=== PATIENT | male | born 1975 | race African-American/Black ===

== ENCOUNTER 2018-04-27 23:48 | Inpatient (IN) | payer MEDICARE, OTHER ==
[~2018-04-27] VITALS: Ht 165.1 cm; Wt 68.5 kg
[~2018-04-27 23:48] MED LIST: AMOX-430 PO; APIX5TAB PO; LINE600T2 PO
--- NOTE | 2018-04-28 06:06 | NUR ---
ER MD GOETZ AT BEDSIDE FOR EVAL
[2018-04-28] MEDS ORDERED: HYDROCODONE/APAP 5/325MG 1 EACH TABLET ONE (06:24)
[2018-04-28] MEDS ORDERED: VANCOMYCIN 1 GM VIAL ONE (06:24)
[2018-04-28] MEDS ORDERED: PIPERACILLIN /TAZOBACTAM 3.375 G VIAL IV ONE (06:24)
[2018-04-28] MEDS ORDERED: HYDROCODONE/APAP 5/325MG 1 EACH TABLET PO ONE (06:30)
[2018-04-28] MEDS ORDERED: VANCOMYCIN 1 GM in IV D5W 250 ML IV ONE (06:30)
[2018-04-28] MEDS ORDERED: PIPERACILLIN /TAZOBACTAM 3.375 G in IV D5W 50 ML IV ONE (06:30)
--- NOTE | 2018-04-28 07:00 | NUR ---
BLOOD SENT TO LAB WITH MEDICAL PATHOLOGIST
[2018-04-28 07:18] LABS: BASOPHILS % (AUTO) 0.3 % (0.0-2.0); CALCIUM, SERUM 8.5 mg/dL (8.5-10.1); CREATININE 0.6 mg/dL (0.6-1.3); EOSINOPHILS % (AUTO) 4.8 % (0.0-6.0); HEMATOCRIT 32 % (39-51); HEMOGLOBIN 10.3 g/dL (13.5-17.5); LYMPHOCYTES # (AUTO) 1.4 /CMM (0.8-4.8); LYMPHOCYTES % (AUTO) 21.4 % (20.0-44.0); MEAN CORPUSCULAR HEMOGLOBIN 25 PG (26.0-33.0); MEAN CORPUSCULAR HGB CONC 32 g/dl (31.0-36.0); MEAN CORPUSCULAR VOLUME 78 fL (80-96); MONOCYTES # (AUTO) 0.6 /CMM (0.1-1.30); MONOCYTES % (AUTO) 9.5 % (2.0-12.0); NEUTROPHILS # (AUTO) 4.3 /CMM (1.8-8.9); PLATELET COUNT (AUTO) 612 /CMM (150-450); POTASSIUM 3.8 mmol/L (3.5-5.1); RDW COEFFICIENT OF VARIATION 18.4 (11.5-15.0); RED BLOOD CELL COUNT(AUTO) 4.13 MIL/uL (4.5-6.0); WHITE BLOOD COUNT (AUTO) 6.7 K/uL (4.3-11.0)
--- NOTE | 2018-04-28 07:19 | NUR ---
Paged Bijan DIRECTOR OF STRATEGIC ALLIANCES for admission
[2018-04-28 07:23] LABS: ALBUMIN 2.2 g/dL (3.4-5.0); BILIRUBIN,TOTAL 0.1 mg/dL (0.2-1.0); TOTAL PROTEIN, SERUM 8.2 g/dL (6.4-8.2)
[2018-04-28 08:00] VITALS: BP 118/82
[2018-04-28] MEDS ORDERED: Z GUARD REMEDY 2 OZ OINT TP PRN (08:00)
[2018-04-28] MEDS ORDERED: ACETAMINOPHEN 325 MG TABLET PO PRN (08:00)
[2018-04-28] MEDS ORDERED: HYDROCODONE/APAP 5/325MG 1 EACH TABLET PO PRN (08:00)
[2018-04-28] MEDS ORDERED: ZOLPIDEM TARTRATE 5 MG TABLET PO PRN (08:00)
[2018-04-28] MEDS ORDERED: MAGNESIUM HYDROXIDE 30 ML UDC PO PRN (08:00)
[2018-04-28] MEDS ORDERED: MAG HYDROX/AL HYDROX/SIMETH 30 ML UDC PO PRN (08:00)
--- NOTE | 2018-04-28 08:00 | NUR ---
LATHE SANDER RECEIVED PT. IN BED IN STABLE CONDITION. PT. IS HYPERVERBAL, AND DOES NOT WANT TO ANSWER QUESTIONS. VITAL SIGNS WNL. PT. IS VERY AGITATED THAT HE DID NOT HAVE BREAKFAST. PT. WAS EXPLAINED THAT THE KITCHEN IS BEING NOTIFIED AND AN ORDER IS BEING PLACE. PT. HAS VANCOMYCIN RUNNING ON LEFT UPPER ARM. PT. IS WHEELCHAIR BOUND AND DID NOT HAVE A WHEELCHAIR WITH HIM. ER WAS NOTIFIED, AND YOKE PRESSER IS AWARE.
[2018-04-28] MEDS: IV NS 0.9% 1,000 ML IV PRN (08:26)
--- NOTE | 2018-04-28 08:53 | NUR ---
WOUND CARE CONSULT: LIMITED ASSESSMENT DUE TO PT BECOMING AGITATED. PT PRESENTS WITH BILATERAL FOOT WOUNDS, PRESENT ON ADMISSION. LEFT FOOT HAS PROFOUND EDEMA. PT STATED THAT HE HAD A SACRAL WOUND BUT PT BECAME AGITATED DURING ASSESSMENT AND YELLED, CURSED AT NURSING STAFF TO GET OUT OF HIS ROOM. RECOMMEND DPM CONSULT. RECOMMEND LOW AIRLOSS BED (MARY ISOFLEX). ALL WOUND CARE AND SKIN PROTECTION RECOMMENDATIONS DISCUSSED WITH NURSING STAFF. WILL SEE PRN. MADDEN IN AGREEMENT WITH PLAN OF CARE. Addendum: 04/28/18 at 0855 by JINA DONNELLY WNDNU Amended: Links added.
[2018-04-28] MEDS ORDERED: APIXABAN 5 MG TABLET PO ONE (09:00)
[2018-04-28] MEDS ORDERED: APIXABAN 5 MG TABLET PO SCH (09:00)
--- NOTE | 2018-04-28 10:44 | NUR ---
PT. WAS MOVED TO ROOM 308 BED 2 TO ROOM 315 BED 1.
[2018-04-28 10:48] VITALS: BP 118/82
[2018-04-28] MEDS ORDERED: MORPHINE SULFATE INJ 2 MG/ML DISP.SYRIN IV PRN (11:30)
[2018-04-28] MEDS: MORPHINE SULFATE INJ 4 MG/ML DISP.SYRIN IV PRN ×3 (11:55→21:33)
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
--- NOTE | 2018-04-28 13:47 | NUR ---
RN PT. REFUSED TO HAVE SKIN ASSESSED, PICTURES TAKEN AND DRESSING CHANGED. PT. WAS OFFERED ASSISTANCE TO CHANGE DRESSING, BUT PT. STRONGLY REFUSED AND SAID, " DON'T TOUCH ME". PT. BECAME VERBALLY ABUSIVE.
[2018-04-28] MEDS ORDERED: FEE PK DOSING 1 MIN EA MC ONE (14:08)
--- NOTE | 2018-04-28 14:12 | NUR ---
WHILE ASSISTING PT. IN DRESSING CHANGE PT. BECAME VERBALLY ABUSIVE, SHOUTING AND YELLING AT NURSES OFFERING TO HELP ASSIST PT., AFTER EMPTYING OUT HIS URINAL PT. AGGRESSIVELY THREW URINAL AT THE WALL.
--- NOTE | 2018-04-28 15:01 | NUR ---
PT. IS WHEELCHAIR BOUND, PHYSICAL THERAPY IS NOT NEEDED AT THIS TIME.
[2018-04-28] MEDS: LORAZEPAM INJ 2 MG/ML VIAL IV PRN (15:57)
[2018-04-28 16:00] VITALS: BP 107/56
[2018-04-28] MEDS: PIPERACILLIN /TAZOBACTAM 3.375 G in IV D5W 50 ML IV SCH ×2 (16:04→23:04)
[2018-04-28] MEDS: VANCOMYCIN 1 GM in IV D5W 250 ML IV SCH (17:17)
[2018-04-28] MEDS: RIVAROXABAN 10 MG TABLET PO SCH (18:01)
--- NOTE | 2018-04-28 19:30 | NUR ---
RN CLOSING NOTES PT. IS IN BED A&OX4. BREATHING UNLABORED, AND EVENLY ON ROOM AIR. BED IS IN LOWEST, AND LOCKED POSITION. 2 SIDE RAILS UP, AND IV FLUIDS RUNNING AT 75ML/HR. CALL LIGHT IS WITHIN REACH. PT. IS EATING A SANDWICH AT BEDSIDE. WILL ENDORSE REPORT TO NURSE.
--- NOTE | 2018-04-28 19:35 | NUR ---
RN OPENING NOTES RECEIVED REPORT FROM DAYSHIFT CAROLIN HILARIO. FOUND Pt AWAKE, RESTING IN BED, EATING HIS SANDWICH. NO S/S OF ACUTE DISTRESS OR SOB NOTED. Pt IS A/OX3, VERBAL, ABLE TO MAKE NEEDS KNOWN. IV ACCESS ON BIPIN, IVF NS @75ML/HR. SAFETY MEASURES IN PLACE. BED LOW, LOCKED, HOB ELEVATED, SIDE RAILS UP, CALL LIGHT AND BEDSIDE TABLE WITHIN REACH. WILL CONTINUE TO MONITOR Pt THROUGHOUT THE NIGHT FOR SAFETY.
[2018-04-28 20:00] VITALS: BP 120/65
[2018-04-29] MEDS: VANCOMYCIN 1 GM in IV D5W 250 ML IV SCH ×4 (00:24→23:03)
[2018-04-29] MEDS: MORPHINE SULFATE INJ 4 MG/ML DISP.SYRIN IV PRN ×5 (01:46→22:10)
[2018-04-29] MEDS: LORAZEPAM INJ 2 MG/ML VIAL IV PRN (04:22)
--- NOTE | 2018-04-29 04:25 | NUR ---
RN NOTES Pt WAS GETTING AGITATED AND AGGRESSIVE TOWARDS STAFF MEMBERS, YELLING AND CURSING AND THROWING THINGS AROUND HIS ROOM. ADMINISTERED PRN ATIVAN 1MG PER MD ORDER.
--- NOTE | 2018-04-29 05:10 | NUR ---
RN NOTES Pt REFUSED LAB DRAW IN THE AM. LAB WILL TRY AGAIN LATER AFTER BFAST.
[2018-04-29] MEDS: PIPERACILLIN /TAZOBACTAM 3.375 G in IV D5W 50 ML IV SCH ×3 (05:35→18:40)
--- NOTE | 2018-04-29 06:31 | NUR ---
RN CLOSING NOTES NO SIGNIFICANT CHANGES IN Pt's CONDITION. Pt IS SLEEPING, WITH EVEN AND UNLABORED RESPIRATIONS. NO S/S OF ACUTE DISTRESS OR SOB NOTED DURING THE NIGHT. ALL NEEDS MET AND ATTENDED TO SAFETY MEASURES IN PLACE. WILL ENDORSE TO DAYSHIFT RN FOR Pt's BHARAT.
--- NOTE | 2018-04-29 07:34 | NUR ---
MS RN OPENING NOTES RECEIVED PT FROM NIGHTSARFT NURSE IN STABLE CONDITION. PT IS A/O X2. HE IS CURRENTLY CALM AND RESTING IN BED. PT IS EASILY AROUSABLE. COLOSTOMY NOTED TO BE INTACT. NO CONTENTS AT THIS TIME. ILEOSTOMY NOTED WELL WITH NO CONTENTS. IV TO RIGHT FA NOTED TO BE PATENT AND INTACT. NO REDNESS OR SIGNS OF INFILTRATION NOTED. PT TOLERATING NS INFUSION WELL. WOUND DRESSINGS NOTED TO BE CLEAN, DRY, AND INTACT. BED IN LOW LOCKED POSITION, SIDE RAILS UP X3, CALL LIGHT WITHIN REACH, BED ALARM ON. WILL CONTINUE TO MONITOR
[2018-04-29 08:00] VITALS: BP 104/65
[2018-04-29 08:14] VITALS: BP 104/65
[2018-04-29] MEDS: DAKINS QUARTER STRENGTH (0.125%) 480 ML BOTTLE TOP SCH (09:00)
--- NOTE | 2018-04-29 10:53 | NUR ---
VANCO ADMINISTRATION: 0800 VANCO HELD PT WAS REFUSING 0700 VANCO TROUGH LAB DRAW. PHARMACIST JOE MADE AWARE WHO STATES THAT VANCO MAY BE GIVEN AT THIS TIME AND THAT THE DOSAGE AND/OR TIMING MAY BE CHANGED
--- NOTE | 2018-04-29 10:57 | NUR ---
MS RN NOTES: WOUND CARE TX PT PERSISTENT ON TREATING AND CHANGING WOUND DRESSINGS ON HIS OWN AND REFUSING HELP. PER PT "MAN I DON'T WANT YOU IN HERE, I CAN DO THIS SHIT MYSELF".
--- NOTE | 2018-04-29 10:57 | NUR ---
PT REFUSING VANCO ADMINISTRATION
--- NOTE | 2018-04-29 12:16 | NUR ---
LANG received a call from pt's RN Shad that pt. is requesting to see the social service worker. LANG met with pt. bedside. Security, VINAYAK Brannon and CAROLIN Kulkarni were present as well outside pt's room. Pt. is verbally abusive to the staff and insists on wanting to sit in a wheelchair and possibly go out to smoke. LANG informed pt. that currently there is no staff available to take accompany him to go smoke. Pt. states he does not want to go AMA but wants to sit by the doorway in a wheelchair. VINAYAK Brannon is concerned that pt. if given wheelchair will wheel himself back and forth in the hallway in a wheelchair causing disruption on the floor. LANG provided active listening and emotional support to the patient and requested him to be patient about getting a wheelchair.
--- NOTE | 2018-04-29 12:25 | NUR ---
MS RN NOTES: 1200 ZOSYN ADMINISTRATION PT REFUSING 12OO ZOSYN ADMINISTRATION. RISKS AND BENEFITS EXPLAINED HOWEVER HE CONTINUED TO REFUSE
[2018-04-29] MEDS: IV NS 0.9% 1,000 ML IV PRN (14:36)
[2018-04-29 15:33] LABS: BASOPHILS % (AUTO) 0.3 % (0.0-2.0); EOSINOPHILS % (AUTO) 5.1 % (0.0-6.0); HEMATOCRIT 34 % (39-51); HEMOGLOBIN 10.1 g/dL (13.5-17.5); LYMPHOCYTES # (AUTO) 1.2 /CMM (0.8-4.8); LYMPHOCYTES % (AUTO) 19.2 % (20.0-44.0); MEAN CORPUSCULAR HEMOGLOBIN 24 PG (26.0-33.0); MEAN CORPUSCULAR HGB CONC 30 g/dl (31.0-36.0); MEAN CORPUSCULAR VOLUME 80 fL (80-96); MONOCYTES # (AUTO) 0.5 /CMM (0.1-1.30); MONOCYTES % (AUTO) 7.2 % (2.0-12.0); NEUTROPHILS # (AUTO) 4.4 /CMM (1.8-8.9); NEUTROPHILS % (AUTO) 68.2 % (43.0-81.0); PLATELET COUNT (AUTO) 678 /CMM (150-450); RDW COEFFICIENT OF VARIATION 18.3 (11.5-15.0); RED BLOOD CELL COUNT(AUTO) 4.22 MIL/uL (4.5-6.0); WHITE BLOOD COUNT (AUTO) 6.5 K/uL (4.3-11.0)
[2018-04-29 15:57] LABS: CALCIUM, SERUM 8.7 mg/dL (8.5-10.1); CREATININE 0.6 mg/dL (0.6-1.3); PHOSPHORUS 3.6 mg/dL (2.5-4.9); POTASSIUM 4.1 mmol/L (3.5-5.1)
[2018-04-29] MEDS: DIVALPROEX SODIUM 250 MG TABLET.DR PO SCH (17:33)
[2018-04-29] MEDS: RIVAROXABAN 10 MG TABLET PO SCH (17:33)
[2018-04-29] MEDS: LACTOBACILLUS RHAMNOSUS GG 1 EACH CAP.SPRINK PO SCH (17:34)
--- NOTE | 2018-04-29 19:22 | NUR ---
MS RN CLOSING NOTES PT REMAINS STABLE. MEDS GIVEN AND ORDERS CARRIED OUT ACCORDINGLY. WOUND DRESSINGS COMPLETED BY .PT REFUSING FURTHER DRESSING CHANGES THROUGHOUT SHIFT. IV REMAINS PATENT AND INTACT. SAFETY MEASURES REMAIN IN PLACE. WILL ENDORSE TO NIGHTSHIFT NURSE FOR BHARAT
--- NOTE | 2018-04-29 19:37 | NUR ---
MS COE OPENING NOTES: RECEIVED PT ON ROOM AIR AND IS TALKING ON TELEPHONE RIGHT NOW. PT HAS IV AND IS BEING INFUSED WITH IV NS AT 75ML/HR. PT HAS COLOSTOMY ON LEFT SIDE. CALL LIGHT WITHIN PT'S REACH. BED KEPT IN LOW, LOCKED POSITION, AND SIDE RAILS X 2UP. WILL CONTINUE TO MONITOR PT. Addendum: 04/29/18 at 2019 by ESTEFANIA KAUFMAN RN PT HAS DRESSING IN PLACE ON LEFT FOOT AND IS KEPT CLEAN AND DRY. PT ALSO HAS ILEAL CONDUIT ON RIGHT LOWER ABDOMEN.
--- NOTE | 2018-04-29 19:49 | NUR ---
MS RN NOTES: PT REFUSING TO HAVE HIS BLOOD PRESSURE TAKEN. PT VERBALLY ABUSIVE. PT DOES NOT WANT TO BE ASSISTED BY DOMINICK KOHLER. PT REMOVED HIMSELF FROM IV. PT REFUSING TO BE PLACED BACK ON CONTINUOUS IV.
[2018-04-29 20:00] VITALS: BP 121/80
--- NOTE | 2018-04-29 20:09 | NUR ---
MS RN NOTES: PT ASKED FOR SANDWICH. SANDWICH WAS BROUGHT AND PT SAID " I DON'T WANT NO EGG SANDWICH, BITCH." PT VERY VERBALLY ABUSIVE. PT DOES NOT WANT A MALE CHIEF LOCK TENDER OPERATOR. PT CALLED UP FRONT AND CALLED THE PERSON WHO PICKED UP THE PHONE A "BITCH." Addendum: 04/29/18 at 2009 by ESTEFANIA KAUFMAN RN PT VERY VERBALLY ABUSIVE FOR NO REASON.
[2018-04-29] MEDS: ONDANSETRON HCL/PF 4 MG/2 ML VIAL IVP PRN (20:44)
--- NOTE | 2018-04-29 20:44 | NUR ---
MS RN NOTES: PT SAID THAT HE HAS BEEN REQUESTING FOR ZOFRAN SINCE 0900 IN THE MORNING AND HAS BEEN FEELING NAUSEOUS. PT WAS ADMINISTERED ZOFRAN 4MG IV.
--- NOTE | 2018-04-29 21:12 | NUR ---
MS RN NOTES: LAMAR COOLEY ON PHONE. EXPLAINED TO HIM THAT PT HAS BEEN COMPLAINING OF PAIN AND THAT THE MORPHINE 1MG PAIN MEDICATION HE HAS BEEN GETTING HAS NOT BEEN WORKING. GOT ORDER FOR MORPHINE 4MG IV Q4HR.
--- NOTE | 2018-04-29 23:00 | NUR ---
MS RN NOTES: CHANGED DRESSING IN SACRAL AREA. EXPLAINED TO PT THAT PHOTO NEEDS TO BE TAKEN HOWEVER CAMERA WAS NOT IN HAND AT THE TIME OF DRESSING CHANGE. PT REQUESTED TO HAVE PHOTO TAKEN AT ANOTHER TIME WHEN THE CAMERA IS READILY AVAILABLE. WILL TRY AGAIN AT ANOTHER TIME.
--- NOTE | 2018-04-30 | NUR ---
MS RN NOTES: EXPLAINED TO PT THAT HE CANNOT GO DOWN FOR A SMOKE. PT AGITATED AND FRUSTRATED. PT APPEARED TO BE VERY ANXIOUS. PT WAS ADMINISTERED ATIVAN 1MG VIA IV. WILL CONTINUE TO MONITOR PT.
[2018-04-30] MEDS: PIPERACILLIN /TAZOBACTAM 3.375 G in IV D5W 50 ML IV SCH ×5 (00:09→23:02)
[2018-04-30] MEDS: MORPHINE SULFATE INJ 4 MG/ML DISP.SYRIN IV PRN ×5 (02:10→19:36)
[2018-04-30] MEDS: ONDANSETRON HCL/PF 4 MG/2 ML VIAL IVP PRN ×2 (02:44→15:58)
--- NOTE | 2018-04-30 02:44 | NUR ---
MS RN NOTES: PT VERBALIZING THAT HE IS NAUSEOUS AND REQUESTING FOR ZOFRAN. PT WAS ADMINISTERED ZOFRAN 4MG VIA IV. WILL CONTINUE TO MONITOR PT.
--- NOTE | 2018-04-30 06:04 | NUR ---
MS RN NOTES: PT VERBALIZING HIS BACK HAS BEEN HURTING AND THAT LAYING IN BED MAKES IT HURT EVEN MORE. PT REQUESTED TO BE SEATED ON CHAIR AND TO BE OUT OF ROOM SINCE HE IS CLAUSTROPHOBIC. CHARGE NURSE AWARE. HELPED ASSIST PT.
--- NOTE | 2018-04-30 06:10 | NUR ---
MS RN NOTES: PT COMPLAINING OF 8/10 LOWER BACK PAIN AND L FOOT/HEEL. PT WAS ADMINISTERED MORPHINE 4MG VIA IV. WILL CONTINUE TO MONITOR PT.
--- NOTE | 2018-04-30 06:31 | NUR ---
MS RN CLOSING NOTES: ALL NEEDS WERE ATTENDED AND ANTICIPATED FOR. PT SITTING IN THE HALLWAY FOR NOW HE VERBALIZED "IT IS STUFFY IN THE ROOM." PT REFUSING TO BE CONNECTED TO IV AT THIS TIME. PS HAS IV INTACT. BED KEPT CLEAN. WILL ASSIST PT BACK TO BED ONCE PT REQUESTS. PT REFUSING TO GO TO BED AT THIS TIME. EXPLAINED TO PT THAT TRUCK BRACER WILL HAVE TO DRAW BLOOD FROM HIM FOR HIS VANCO TROUGH SOON. WILL ENDORSE TO AM NURSE FOR BHARAT.
--- NOTE | 2018-04-30 07:15 | NUR ---
MS/RN OPENING NOTE PATIENT IS RECEIVED SITTING IN A CHAIR IN THE HALLWAY. THE PATIENT ALERT AND ORIENTED X4. UPON RECEIVING THE REPORT OVERHEAD THE PATIENT CURSING AND USING INAPPROPRIATE WORDS TOWARD NURSING STAFF WHO WERE NOT AROUND HIM. ONCE APPROACHED THE RESIDENT TO CHECK THE PATIENT AND CONTINUE RECEIVING REPORT WHILE BEING NEXT TO THE PATIENT, THE PATIENT STARTED TO BE VERBALLY ABUSIVE WITH NO APPARENT REASON. THE PATIENT SAYING " FUCKING NURSES, I AM YENIFER MCCRACKEN AND I DON`T WANT TO SEE ANY OF YOU. THE PATIENT WAS ENCOURAGED TO CALM DOWN AND VERBALIZE FEELINGS IN CALM MANNER, HOWEVER, THE PATIENT REFUSED TO FOLLOW THE INSTRUCTION AND CONTINUE TO BE VERBALLY ABUSIVE. PATIENT REFUSED TO BE CONNECTED TO THE TO THE IV FLUID. PATIENT HAS RFA G 22. PATIENT REFUSED TO SHOW ILEOSTOMY AND ILEAL CONDUIT THAT HE HAS ACCORDING TO REPORT. THE PATIENT REFUSED VITAL SIGNS. EXPLAINED RISKS AND BENEFITS BUT THE PATIENT STILL REFUSING. WILL CONTINUE TO MONITORING AND ENCOURAGE THE PATIENT.
--- NOTE | 2018-04-30 07:45 | NUR ---
MS/RN NOTE PATIENT REFUSED BLOOD DRAW FOR VANCO TROUGH DESPITE EXPLAINING RISKS AND BENEFITS.
[2018-04-30] MEDS: LORAZEPAM INJ 2 MG/ML VIAL IV PRN ×4 (08:29→22:07)
[2018-04-30] MEDS: DAKINS QUARTER STRENGTH (0.125%) 480 ML BOTTLE TOP SCH ×2 (08:35→09:00)
[2018-04-30] MEDS: LACTOBACILLUS RHAMNOSUS GG 1 EACH CAP.SPRINK PO SCH ×2 (09:00→17:18)
[2018-04-30] MEDS: DIVALPROEX SODIUM 250 MG TABLET.DR PO SCH ×3 (09:00→17:00)
--- NOTE | 2018-04-30 09:11 | NUR ---
MS/RN NOTE PATIENT REFUSED BLOOD DRAW FOR VANCO TROUGH DESPITE EXPLAINING RISKS AND BENEFITS. SOFTWARE SUPPORT TECHNICIAN EVATIAK IS MADE AWARE AND PER SOFTWARE SUPPORT TECHNICIAN HOLD VANCO UNTIL PATIENT AGREES FOR BLOOD DRAW AND THERE IS A RESULT FOR VANCO TROUGH.
--- NOTE | 2018-04-30 13:20 | NUR ---
MS/RN NOTE PATIENT REFUSES SKIN ASSESSMENT, WOUND PICTURES TO BE TAKEN AND TREATMENT TO BE DONE. THE PATIENT IS EXPLAINED RISKS AND BENEFITS, HOWEVER, THE PATIENT CONTINUE TO BE NON-COMPLIANT AND VERBALLY ABUSIVE TO NURSING STAFF.
--- NOTE | 2018-04-30 13:30 | NUR ---
MS/RN NOTE PATIENT REFUSED DEPAKOTE DUE AT 1300. EXPLAINED RISKS AND BENEFITS MULTIPLE TIMES BUT THE PATIENT STILL REFUSED.
[2018-04-30 14:50] LABS: CALCIUM, SERUM 8.5 mg/dL (8.5-10.1); CREATININE 0.6 mg/dL (0.6-1.3); POTASSIUM 4.7 mmol/L (3.5-5.1)
[2018-04-30 15:15] LABS: HEMOGLOBIN 10.6 g/dL (13.5-17.5); LYMPHOCYTES # (AUTO) 1.6 /CMM (0.8-4.8)
[2018-04-30 15:16] LABS: EOSINOPHILS % (AUTO) 5.4 % (0.0-6.0); HEMATOCRIT 34 % (39-51); LYMPHOCYTES % (AUTO) 23.2 % (20.0-44.0); MEAN CORPUSCULAR HEMOGLOBIN 25 PG (26.0-33.0); MEAN CORPUSCULAR HGB CONC 31 g/dl (31.0-36.0); MEAN CORPUSCULAR VOLUME 80 fL (80-96); MONOCYTES # (AUTO) 0.4 /CMM (0.1-1.30); MONOCYTES % (AUTO) 6.3 % (2.0-12.0); NEUTROPHILS # (AUTO) 4.4 /CMM (1.8-8.9); NEUTROPHILS % (AUTO) 65.1 % (43.0-81.0); RDW COEFFICIENT OF VARIATION 18.8 (11.5-15.0); RED BLOOD CELL COUNT(AUTO) 4.31 MIL/uL (4.5-6.0); WHITE BLOOD COUNT (AUTO) 6.8 K/uL (4.3-11.0)
[2018-04-30 15:35] LABS: PLATELET COUNT (AUTO) 424 /CMM (150-450)
[2018-04-30] MEDS: VANCOMYCIN 1 GM in IV D5W 250 ML IV SCH ×2 (15:58→23:02)
--- NOTE | 2018-04-30 16:30 | NUR ---
MS/RN NOTE PATIENT REFUSES BED LINENS TO BE CHANGED.
[2018-04-30] MEDS: RIVAROXABAN 10 MG TABLET PO SCH (17:19)
[2018-04-30] MEDS ORDERED: VANCOMYCIN HCL 125 MG/2.5 ML ORAL.SUSP PO ONE (17:30)
--- NOTE | 2018-04-30 17:47 | NUR ---
MS/RN NOTE RECEIVED NEW ORDER FROM LAMAR AMADOR. THE ORDERS ARE MIDLINE INSERTION, VACNO 500 MG PO X 1 AND HOLDING IV VANCO AND ZOSYN UNTIL MIDLINE IS INSERTED. THE ORDER ARE READ BACK, VERIFIED. NOTED AND CARRIED OUT.
--- NOTE | 2018-04-30 17:50 | NUR ---
MS/RN NOTE VANCO1 GM STARTED AT 1558 NOT ADMINISTERED DUE TO IV LINE MALFUNCTION.
--- NOTE | 2018-04-30 17:57 | NUR ---
MS/RN NOTE PER CURRICULUM ADVISORY TEACHER ISMAIL-ZAGLENDA ORDER OF VANCO 500MG PO IS DISCONTINUED. THE ORDER IS READ BACK, VERIFIED. NOTED AND CARRIED OUT.
--- NOTE | 2018-04-30 17:59 | NUR ---
MS/RN NOTE ZOSYN 3.375G DUE AT 1800 IS HELD DUE TO PATIENT`S IV LINE MALFUNCTIONING. WAITING FOR MIDLINE INSERTION.
--- NOTE | 2018-04-30 18:36 | NUR ---
MS/RN CLOSING NOTE PATIENT ALERT AND ORIENTED X3. PATIENT IN ROOM AIR AND DENIES SOB. RESPIRATION REGULAR AND UNLABORED. DENIES PAIN. PATIENT DOSE CHANGES AND DRAINS STOMAS AND ILEAL CONDUIT BY HIMSELF AND THE PATIENT DOES NOT ALLOW NURSES TO HELP. PATIENT CONTINUES TO BE NON-COMPLIANT AND VERBALLY ABUSIVE. PATIENT IS ENCOURAGED TO EXPRESS FEELINGS IN CALM AND POSITIVE MANNER, ENCOURAGED TO VENTILATE FEELINGS IN CALM MANNER. FREQUENT VISUAL CHECK DONE, ALL NEEDS ATTENDED AND ANTICIPATED. BED LOW AND LOCKED. SIDE RAILS UP X3. CALL LIGHT WITHIN REACH. WILL ENDORSE TO AUTOMATION AND CONTROLS MANAGER.
--- NOTE | 2018-04-30 19:00 | NUR ---
RN OPENING NOTES PT AWAKE AND RESTING IN BED. PATIENT STATES THAT HE IS YENIFER FIGUEROA. NO COMPLAINTS OF DISTRESS OR SOB AT THIS TIME. PATIENT HAS ILEOSTOMY, COLOSTOMY AND ILEAL CONDUIT. PER DAY SHIFT NURSE PATIENT CHANGES AND DRAINS STOMAS AND ILEAL CONDUIT. PATIENT HAS A PARTIALLY FUNCTIONING LEFT FA #18 IV. NO FLUIDS RUNNING AT THIS TIME, AND ALL IV ANTIBIOTICS WILL BE HELD UNTIL MIDLINE INSERTION. SAFETY PRECAUTIONS IN PLACE, BED IN LOWEST LOCKED POSITION, X3 SIDE RAILS UP, AND CALL LIGHT WITHIN REACH. WILL CONTINUE TO MONITOR.
[2018-04-30 20:00] VITALS: BP 115/63
[2018-05-01] MEDS: MORPHINE SULFATE INJ 4 MG/ML DISP.SYRIN IV PRN ×3 (00:55→09:17)
[2018-05-01] MEDS: LORAZEPAM INJ 2 MG/ML VIAL IV PRN ×2 (04:09→11:27)
[2018-05-01] MEDS: ONDANSETRON HCL/PF 4 MG/2 ML VIAL IVP PRN ×3 (04:10→19:49)
[2018-05-01] MEDS: PIPERACILLIN /TAZOBACTAM 3.375 G in IV D5W 50 ML IV SCH ×4 (05:28→23:00)
--- NOTE | 2018-05-01 06:30 | NUR ---
RN CLOSING NOTES PT AWAKE AND RESTING IN BED. PATIENT STATES THAT HE IS YENIFER FIGUEROA. PATIENT REQUESTS ATIVAN AND MORPHINE Q6H AND Q4H RESPECTIVELY. PT IS VERBALLY ABUSIVE TO STAFF. PATIENT HAS ILEOSTOMY, COLOSTOMY AND ILEAL CONDUIT. CHANGED PATIENTS ILEOSTOMY BAG DURING SHIFT. PATIENT HAS A PARTIALLY FUNCTIONING LEFT FA #18 IV. NO FLUIDS RUNNING OVERNIGHT, AND ALL IV ANTIBIOTICS HELD UNTIL MIDLINE INSERTION. SAFETY PRECAUTIONS IN PLACE, BED IN LOWEST LOCKED POSITION, X3 SIDE RAILS UP, AND CALL LIGHT WITHIN REACH. WILL ENDORSE TO DAY SHIFT NURSE FOR CONTINUITY OF CARE.
--- NOTE | 2018-05-01 06:39 | NUR ---
RN NOTES PT REFUSED LAB DRAW. WILL ENDORSE TO DAY SHIFT NURSE FOR LAB TO COME BACK LATER.
--- NOTE | 2018-05-01 07:00 | NUR ---
RN NOTES PT OUT OF BED AND GOT HIMSELF INTO CHAIR. NOW DEMANDS TO BE PULLED INTO THE HALLWAY.
[2018-05-01 07:40] LABS: HEMATOCRIT 33 % (39-51); HEMOGLOBIN 10.4 g/dL (13.5-17.5); MEAN CORPUSCULAR HEMOGLOBIN 25 PG (26.0-33.0); MEAN CORPUSCULAR HGB CONC 32 g/dl (31.0-36.0); MEAN CORPUSCULAR VOLUME 77 fL (80-96); RDW COEFFICIENT OF VARIATION 18.1 (11.5-15.0); RED BLOOD CELL COUNT(AUTO) 4.24 MIL/uL (4.5-6.0)
[2018-05-01 07:41] LABS: BASOPHILS % (AUTO) 0.7 % (0.0-2.0); EOSINOPHILS % (AUTO) 4.4 % (0.0-6.0); LYMPHOCYTES # (AUTO) 1.2 /CMM (0.8-4.8); LYMPHOCYTES % (AUTO) 19.6 % (20.0-44.0); MONOCYTES # (AUTO) 0.5 /CMM (0.1-1.30); MONOCYTES % (AUTO) 7.9 % (2.0-12.0); NEUTROPHILS # (AUTO) 4.2 /CMM (1.8-8.9); NEUTROPHILS % (AUTO) 67.4 % (43.0-81.0); PLATELET COUNT (AUTO) 513 /CMM (150-450)
[2018-05-01 07:43] LABS: CALCIUM, SERUM 8.9 mg/dL (8.5-10.1); CREATININE 0.5 mg/dL (0.6-1.3); POTASSIUM 4.6 mmol/L (3.5-5.1)
--- NOTE | 2018-05-01 08:00 | NUR ---
rn notes received patient sitting in the chair front of door. patient a/o x3 no acute respiratory distress. patient unkempt, verbally abusive, needy, hard to follow direction. Encouraged to express feelings and concerns. Patient refused v/s to be taken. patient paraplegic, also has a ileal conduce, colostomy on right side. edema right foot with wound, wound left ankle, and wound on sacral area. iv access on left ac area intact, patient refused ns iv infusion. patient selective with scheduled medication. needs attended and anticipated. call light within to reach, safety precaution maintained all the time.
[2018-05-01] MEDS: DIVALPROEX SODIUM 250 MG TABLET.DR PO SCH ×3 (08:20→16:49)
[2018-05-01] MEDS ORDERED: VANCOMYCIN HCL 125 MG/2.5 ML ORAL.SUSP PO ONE ×2 (08:30)
[2018-05-01] MEDS: LACTOBACILLUS RHAMNOSUS GG 1 EACH CAP.SPRINK PO SCH ×2 (09:16→16:41)
--- NOTE | 2018-05-01 09:20 | NUR ---
rn notes administered morphine sulf 4 mg/ 1 ml iv push par patient request foe generalized chronic pain 04/01, also administered Zofran 4 mg iv push for nausea, patient selective with medication intake, refused v/s to be taken. continued monitoring.
[2018-05-01] MEDS: DAKINS QUARTER STRENGTH (0.125%) 480 ML BOTTLE TOP SCH ×2 (09:52→09:53)
[2018-05-01] MEDS: VANCOMYCIN 1 GM in IV D5W 250 ML IV SCH (11:25)
--- NOTE | 2018-05-01 11:27 | NUR ---
rn notes administered Ativan 1 mg/ml iv push per patient request v/s taken bp-115/76, p-72, continued monitoring.
[2018-05-01] MEDS ORDERED: HYDROMORPHONE 1 MG/1 ML DISP.SYRIN IV PRN (13:30)
[2018-05-01] MEDS: HYDROMORPHONE 1 MG/1 ML DISP.SYRIN IV PRN ×4 (13:40→23:00)
--- NOTE | 2018-05-01 13:40 | NUR ---
rn notes administered Dilaudid 2 mg/ml iv push per patient request for pain 04/01 , v/s taken bp 133/75, p-63. per Dr Time put midline #18 gauge left upper arm, infusing ns at 75 ml/hr intact. continued monitoring.
--- NOTE | 2018-05-01 16:41 | NUR ---
rn notes administered Dilaudid 2 mg/ml iv push per patient request, v/s taken bp -130/72, p-60, continued monitoring. patient refused sacral wound dressing, left, and right wound dressing to be changed patient did himself. call light within to reach, safety precaution maintained all the time.
[2018-05-01] MEDS: RIVAROXABAN 10 MG TABLET PO SCH (16:43)
--- NOTE | 2018-05-01 18:30 | NUR ---
RN NOTES PATIENT STABLE BACK TO THE BED AFTER SMOKING. PATIENT NEEDY, KEEP ASKING PAIN MEDICATION, NEED REDIRECTION. NO ACUTE DISTRESS AT THIS TIME, NO RESPIRATORY DISTRESS. CALL LIGHT WITHIN TO REACH. ENDORSED ONCOMING NURSE FOR PLAN OF CARE.
--- NOTE | 2018-05-01 19:00 | NUR ---
RN INITIAL NOTES PT IS AWAKE AND ALERT, IN BED. PT IN ROOM AIR, NO SIGNS OF LABORED BREATHING. MIDLINE ACCESS IS PATENT AND INTACT. LEFT FOOT DRESSING INTACT. COLOSTOMY, ILEOSTOMY, AND ILEAL CONDUIT IN PLACED. COMPLAINTS OF PAIN OF 8, WILL BE GIVEN PAIN RELIEF. SAFETY MEASURES IN PLACED, CALL LIGHT WITHIN REACH. WILL CONTINUE TO MONITOR
[2018-05-01 20:00] VITALS: BP 120/77
[2018-05-02] MEDS: ONDANSETRON HCL/PF 4 MG/2 ML VIAL IVP PRN ×2 (01:59→20:45)
[2018-05-02] MEDS: HYDROMORPHONE 1 MG/1 ML DISP.SYRIN IV PRN ×8 (01:59→23:45)
[2018-05-02] MEDS: LORAZEPAM INJ 2 MG/ML VIAL IV PRN ×2 (03:00→23:02)
--- NOTE | 2018-05-02 03:00 | NUR ---
RN NOTES PT ALLOWED THE RN TO CHANGE DRESSING IN THE BACK/SACRAL AREA, CLEANSED WITH NS, PACKED DRY, COVERED WITH ABD PACK. CHANGED DRESSING IN THE LEFT HEEL, CLEANSED WITH NS, WRAPPED WITH KERLIX. PT THEN START TO BECOME VERBALLY AGGRESSIVE, SO ATIVAN WAS ADMINISTERED PER MD ORDER. WILL CONTINUE TO MONITOR
[2018-05-02] MEDS: PIPERACILLIN /TAZOBACTAM 3.375 G in IV D5W 50 ML IV SCH ×4 (05:00→23:45)
--- NOTE | 2018-05-02 06:27 | NUR ---
RN CLOSING NOTES PT AWAKE AND ALERT. PT IS IN ROOM AIR, NO SIGNS OF LABORED BREATHING. MIDLINE ON LEFT UPPER ARM 18G PATENT AND INTACT. COLOSTOMY, ILEAL CONDUIT, ILEOSTOMY BAGS CHANGED, INTACT. SACRAL WOUND CLEANSED WITH NS, PACKED DRY, AND COVERED WITH ABD PACK, PICTURE TAKEN ON THE CHART. LEFT HEEL CLEANSED WITH NS, COVERED WITH KERLIX. DENIES ANY PAIN AT THE MOMENT. SAFETY MEASURES IN PLACED, CALL LIGHT WITHIN REACH. ENDORSED CONTINUITY OF CARE TO THE ONCOMING NURSE.
[2018-05-02 07:42] LABS: BASOPHILS % (AUTO) 0.7 % (0.0-2.0); EOSINOPHILS % (AUTO) 4.1 % (0.0-6.0); HEMATOCRIT 36 % (39-51); HEMOGLOBIN 11.2 g/dL (13.5-17.5); MEAN CORPUSCULAR HEMOGLOBIN 25 PG (26.0-33.0); MEAN CORPUSCULAR HGB CONC 31 g/dl (31.0-36.0); MEAN CORPUSCULAR VOLUME 78 fL (80-96); MONOCYTES # (AUTO) 0.5 /CMM (0.1-1.30); MONOCYTES % (AUTO) 6.9 % (2.0-12.0); NEUTROPHILS # (AUTO) 4.8 /CMM (1.8-8.9); NEUTROPHILS % (AUTO) 73.3 % (43.0-81.0); PLATELET COUNT (AUTO) 570 /CMM (150-450); RDW COEFFICIENT OF VARIATION 18.5 (11.5-15.0); RED BLOOD CELL COUNT(AUTO) 4.56 MIL/uL (4.5-6.0); WHITE BLOOD COUNT (AUTO) 6.6 K/uL (4.3-11.0)
[2018-05-02] MEDS: DIVALPROEX SODIUM 250 MG TABLET.DR PO SCH ×3 (07:58→17:00)
[2018-05-02] MEDS: DAKINS QUARTER STRENGTH (0.125%) 480 ML BOTTLE TOP SCH (07:59)
[2018-05-02] MEDS: LACTOBACILLUS RHAMNOSUS GG 1 EACH CAP.SPRINK PO SCH ×2 (07:59→17:36)
[2018-05-02 08:00] VITALS: BP 107/76
[2018-05-02 08:00] LABS: CALCIUM, SERUM 9.1 mg/dL (8.5-10.1); CREATININE 0.7 mg/dL (0.6-1.3); POTASSIUM 4.4 mmol/L (3.5-5.1)
--- NOTE | 2018-05-02 08:02 | NUR ---
rn notes received patient in the room a/o x3, patient stable has no acute respiratory distress, v/s 106/76, p-76, patient was c/o pain chronic generalized 04/01, administered Dilaudid 2 mg /ml iv push, also administered scheduled medication. patient refused Depakote. patient state "I am not psycho i do not need Depakote". patient needy, verbally abusive, argumentative. left upper arm midline intact. patient turn and reposition self in the bed. colostomy and urostomy bag changed by patient. call light within to reach. continued monitoring.
--- NOTE | 2018-05-02 11:35 | NUR ---
RN NOTES ADMINISTERED DILAUDID 2 MG/ML IV PUSH FOR PAIN 04/01 PER PATIENT REQUEST. V/S TAKEN BP-110/78, P-88, CONTINUED MONITORING.
[2018-05-02] MEDS: VANCOMYCIN 1 GM in IV D5W 250 ML IV SCH ×3 (11:36)
--- NOTE | 2018-05-02 14:40 | NUR ---
rn notes administered Dilaudid 2 mg /ml iv push per patient request pain 04/01, v/s taken bp112/78, p-67, continued monitoring.
[2018-05-02 16:42] VITALS: BP 159/90
[2018-05-02] MEDS: RIVAROXABAN 10 MG TABLET PO SCH (17:37)
--- NOTE | 2018-05-02 17:46 | NUR ---
rn notes administered Dilaudid 2 mg/ml for pain 04/01 per patient request, v/s taken bp- 130/89, p-90, continued monitoring.
--- NOTE | 2018-05-02 18:45 | NUR ---
RN NOTES PATIENT IN THE BED, MEDICATION WERE ADMINISTERED FOR PAIN EFFECTIVE. PATIENT MED COMPLIANT, V/S STABLE. CALL LIGHT WITHIN TO REACH. ENDORSED ONCOMING NURSE FOR PLAN OF CARE.
--- NOTE | 2018-05-02 19:00 | NUR ---
RN OPENING NOTES PT AWAKE AND ALERT, SITTING IN CHAIR. PT IN ROOM AIR, TOLERATING WELL NO SIGNS OF LABORED BREATHING. COLOSTOMY, ILEOSTOMY, AND ILEAL CONDUIT ARE INTACT. MIDLINE LEFT UPPER ARM PATENT AND INTACT. PT COMPLAINS OF PAIN BUT TOLERABLE. SAFETY MEASURES IN PLACED, CALL LIGHT WITHIN REACH. WILL CONTINUE TO MONITOR
[2018-05-02 20:00] VITALS: BP 115/64
--- NOTE | 2018-05-02 23:02 | NUR ---
RN NOTES/ SACRAL/BACK DRESSING SACRAL/BACK WOUND CLEANSED WITH NS, PAT DRY, PACK WITH DRY DRESSING, COVERED WITH ABD DRESSING.
[2018-05-03] MEDS: VANCOMYCIN 1 GM in IV D5W 250 ML IV SCH (01:01)
--- NOTE | 2018-05-03 01:10 | NUR ---
RN NOTES ILEAL CONDUIT BAG CHANGED, INTACT
[2018-05-03] MEDS: HYDROMORPHONE 1 MG/1 ML DISP.SYRIN IV PRN ×8 (02:48→23:50)
[2018-05-03] MEDS: ONDANSETRON HCL/PF 4 MG/2 ML VIAL IVP PRN ×2 (02:48→08:45)
[2018-05-03] MEDS: PIPERACILLIN /TAZOBACTAM 3.375 G in IV D5W 50 ML IV SCH ×4 (05:47→23:49)
[2018-05-03 06:22] LABS: BASOPHILS % (AUTO) 0.4 % (0.0-2.0); EOSINOPHILS % (AUTO) 5.1 % (0.0-6.0); HEMATOCRIT 32 % (39-51); LYMPHOCYTES # (AUTO) 1.2 /CMM (0.8-4.8); LYMPHOCYTES % (AUTO) 19.1 % (20.0-44.0); MEAN CORPUSCULAR HEMOGLOBIN 25 PG (26.0-33.0); MEAN CORPUSCULAR HGB CONC 31 g/dl (31.0-36.0); MEAN CORPUSCULAR VOLUME 79 fL (80-96); MONOCYTES # (AUTO) 0.5 /CMM (0.1-1.30); MONOCYTES % (AUTO) 7.4 % (2.0-12.0); NEUTROPHILS # (AUTO) 4.2 /CMM (1.8-8.9); PLATELET COUNT (AUTO) 570 /CMM (150-450); RDW COEFFICIENT OF VARIATION 18.1 (11.5-15.0); RED BLOOD CELL COUNT(AUTO) 4.06 MIL/uL (4.5-6.0); WHITE BLOOD COUNT (AUTO) 6.1 K/uL (4.3-11.0)
--- NOTE | 2018-05-03 06:29 | NUR ---
RN CLOSING NOTES PT AWAKE AND ALERT, LAYING IN BED. PT IN ROOM AIR, TOLERATING WELL NO SIGNS OF LABORED BREATHING. COLOSTOMY, ILEOSTOMY, AND ILEAL CONDUIT ARE INTACT. ILEAL CONDUIT BAG CHANGED. MIDLINE LEFT UPPER ARM 18G PATENT AND INTACT. PT COMPLAINS OF PAIN, GIVEN PAIN MEDICATION AT 0546. SAFETY MEASURES IN PLACED, CALL LIGHT WITHIN REACH. WILL ENDORSE CONTINUITY OF CARE TO THE ONCOMING NURSE.
[2018-05-03 06:36] LABS: CALCIUM, SERUM 8.9 mg/dL (8.5-10.1); CREATININE 0.5 mg/dL (0.6-1.3); MAGNESIUM 1.7 mg/dL (1.8-2.4); PHOSPHORUS 3.8 mg/dL (2.5-4.9); POTASSIUM 4.1 mmol/L (3.5-5.1)
--- NOTE | 2018-05-03 07:30 | NUR ---
MS RN OPENING NOTE PT IS AWAKE AND ALERT, SITTING UP IN CHAIR. PT DENIES SOB, BREATHING IS EVEN AND UNLABORED ON ROOM AIR. PT C/O OF PAIN IN THE LEFT FOOT THAT IS TOLERABLE AT THIS TIME, REQUESTING PRN PAIN MEDICATION WHEN NEXT DUE. LEFT UPPER ARM MIDLINE IS PATENT AND INTACT, SAFETY MEASURES ARE IN PLACE, CALL LIGHT IS WITHIN REACH, WILL CONTINUE TO MONITOR.
[2018-05-03 08:00] VITALS: BP 101/69
[2018-05-03 08:20] VITALS: BP 104/69
[2018-05-03] MEDS: DIVALPROEX SODIUM 250 MG TABLET.DR PO SCH ×4 (08:31→17:00)
[2018-05-03] MEDS: LACTOBACILLUS RHAMNOSUS GG 1 EACH CAP.SPRINK PO SCH ×3 (08:31→17:00)
[2018-05-03] MEDS: DAKINS QUARTER STRENGTH (0.125%) 480 ML BOTTLE TOP SCH (08:36)
--- NOTE | 2018-05-03 09:00 | NUR ---
MS RN SACRAL WOUND DRESSING CHANGED SACRAL WOUND CLEANSED WITH NS, PAT DRY, PACKED WITH DRY GAUZE, COVERED WITH ABD DRESSING, AND TAPED INTO PLACE.
[2018-05-03] MEDS: Magnesium 1GM/D5W 100ML PREMIX 100 ML IV SCH ×2 (11:20→12:35)
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
[2018-05-03] MEDS: VANCOMYCIN 1.25 GM in IV D5W 500 ML IV SCH ×2 (13:00→15:16)
--- NOTE | 2018-05-03 13:30 | NUR ---
MS RN PT REFUSING VANCOMYCIN ADMINISTRATION PT DISCONNECTED SELF FROM IV PUMP AND IS REFUSING VANCOMYCIN ADMINISTRATION. DID NOT RECEIVE ENTIRE DOSE OF 2ND BAG OF MAGNESIUM ORDERED. RISKS AND BENEFITS EXPLAINED. PT STATED "I WON'T TAKE THEM UNTIL I GET TO SMOKE", WHEN ASKED IF THE PATIENT HAS CIGARETTES, PT STATED "NO" AND BEGAN TO CURSE. EXPLAINED TO PT HOSPITAL POLICY ON SMOKING, SPECIFICALLY THAT PT NEEDS TO PROVIDE OWN CIGARETTES, PT BEGAN TO CURSE ONCE AGAIN AND TOLD NURSE TO LEAVE THE ROOM.
--- NOTE | 2018-05-03 14:00 | NUR ---
MS RN PT REFUSING VANCOMYCIN PT STILL REFUSING VANCOMYCIN ADMINISTRATION, DEPAKOTE, AND TO FINISH SECOND MAGNESIUM BAG. RISKS AND BENEFITS EXPLAINED. PT STATED "THIS ROOM IS FILTHY, NO ONE DOES ANYTHING FOR ME". TAX DIRECTOR HAS CHANGED THE BED TWICE, RN HAS CHANGED DRAW SHEET AND CHUX ONCE, HOUSEKEEPING HAS SWEPT THE FLOORS AND EMPTIED THE TRASH CANS TWICE; PT THREW COLOSTOMY BAG, DRAW SHEETS, AND PAD ONTO GROUND AND RAISED VOICE AT NURSE. NURSE LEFT THE ROOM, WILL CONTINUE TO MONITOR.
--- NOTE | 2018-05-03 14:20 | NUR ---
MS RN HOUSEKEEPING AND MANAGER GROUP IN ROOM HOUSEKEEPING AND MANAGER GROUP IN ROOM. FLOORS SWEPT, FULL LINEN CHANGE, TRASH FROM BEDSIDE TABLE REMOVED AND WIPED DOWN, AND TRASH CANS EMPTIED.
--- NOTE | 2018-05-03 14:25 | NUR ---
MS RN BENADRYL PT REQUESTED BENADRYL, ORDERS OBTAINED FOR 50MG PO Q8H, WHEN OFFERED MEDICATION TO PT, PT STATED "EVERYTHING I GET IS SUPPOSE TO BE IV', EXPLAINED THAT DR ORDERED PO MEDICATION, PT REFUSED. PT HAS BEEN ABLE TO TOLERATE PO INTAKE WITHOUT INCIDENT TODAY, EVIDENCED BY >75% FOOD TRAY INTAKE. WILL CONTINUE TO MONITOR.
[2018-05-03] MEDS ORDERED: diphenhydrAMINE HCL 50 MG CAPSULE PO PRN (14:30)
--- NOTE | 2018-05-03 15:20 | NUR ---
MS RN LATE MEDICATION ADMINISTRATION VANCOMYCIN 1.25G ADMINISTERED LATE; PT REFUSED MEDICATION ADMINISTRATION AT SCHEDULED TIME. PT ALLOWED SECOND BAG OF MAGNESIUM TO BE CONTINUED WELL. SPOKE TO PHARMACY ABOUT ADJUSTING FUTURE ADMINISTRATION TIMES FOR VANCOMYCIN, STATED THAT SINCE TOMORROW ANOTHER TROUGH LEVEL WILL BE DRAWN, AN ADJUSTMENT IN ADMINISTRATION TIMES IS NOT NECESSARY AT THIS TIME. WILL CONTINUE TO MONITOR.
[2018-05-03 16:00] VITALS: BP 103/80
[2018-05-03] MEDS: RIVAROXABAN 10 MG TABLET PO SCH (17:00)
--- NOTE | 2018-05-03 18:00 | NUR ---
MS RN NON-ADMIN MEDICATIONS PT REFUSED PO DEPAKOTE, XARELTO, AND LACTOBACILLUS. RISKS AND BENEFITS EXPLAINED, PT STILL REFUSED. PT AGREEABLE TO RECEIVING IV ANTIBIOTIC. WILL CONTINUE TO MONITOR.
--- NOTE | 2018-05-03 18:17 | NUR ---
MS RN CLOSING NOTE PT IS SITTING UP IN BED, AA0X4. DENIES N/V, SOB AT THIS TIME, BREATHING IS EVEN AND UNLABORED ON ROOM AIR. PT RECEIVED PRN DILAUDID 2MG IVP AT 1743 FOR PAIN RATED 8/10 IN THE SACRUM. L UPPER ARM MIDLINE #18G IS CURRENTLY INFUSING NS @ 75ML/HR AND ZOSYN ORDERED WITHOUT SIGNS OF REDNESS, SWELLING OR PAIN AT THIS TIME. WOUND CARE PROVIDED TODAY TO SACRUM AND LEFT FOOT ORDERED, PLANS FOR WOUND DEBRIDEMENT TOMORROW (05/04) AT 2PM, PT VERBALIZED UNDERSTANDING OF CURRENT TREATMENT PLAN, CONSENT IS SIGNED AND LOCATED IN PT CHART. BED IS LOCKED AND IN LOWEST POSITION, SIDE RAILS UP X2, CALL LIGHT IS WITHIN REACH. WILL ENDORSE TO TUBE LASER OPERATOR RN FOR CONTINUITY OF CARE. Addendum: 05/03/18 at 1856 by LAI POP RN ORDERS NOTED FOR SACRAL WOUND CARE WITH HYDROGEL, AWAITING [facility] TO DELIVER HYDROGEL. WILL ENDORSE TO TUBE LASER OPERATOR.
--- NOTE | 2018-05-03 19:30 | NUR ---
MS RN OPENING NOTE Patient was seen sitting up in bed AAOx3, breathing comfortably on RA with no SOB, and no signs of acute distress. NS at 75 ml/hr is running through the left upper arm midline with no signs of leaking or infiltration. Left foot is covered with a dressing that is clean, dry, and intact. Patient is scheduled for left food debridement tomorrow (05/04). Colostomy is noted on the left side with stoma that is beefy red; ileostomy located on the right side with stoma that is beefy red. I assisted patient with changing his ileostomy bag, since he stated it was leaking. Bed is low/locked, two side rails up, and call jenkins within reach. Patient has no immediate needs or concerns at this time. Will continue to monitor.
[2018-05-03 20:00] VITALS: BP 135/82
[2018-05-03 20:03] VITALS: BP 135/82
--- NOTE | 2018-05-03 20:48 | NUR ---
MS RN NOTE - Dilaudid Patient reported 9/10 pain in left foot and back and requested Dilaudid. 2mg IV Dilaudid was administered per orders. Will continue to monitor.
--- NOTE | 2018-05-03 21:12 | NUR ---
MS RN NOTE - Med undo/non-admin Patient requested Benadryl prn for mild itching due to Dilaudid. After scanning and removing the Benadryl pill from the package, the patient changed his mind and refused the medication. Medicine was discarded in medication waste bin.
--- NOTE | 2018-05-03 23:50 | NUR ---
MS RN NOTE - Dilaudid Patient stated that pain was a "12/10" and requested Dilaudid. Patient states that prior dose of Dilaudid effectively reduced pain to 3/10. Patient tolerates medication well. 2mg IV Dilaudid administered per orders (prn q3h). Will continue to monitor.
[2018-05-04] MEDS: VANCOMYCIN 1.25 GM in IV D5W 500 ML IV SCH ×2 (01:09→13:00)
[2018-05-04] MEDS: IV NS 0.9% 1,000 ML IV PRN (02:45)
[2018-05-04] MEDS: HYDROMORPHONE 1 MG/1 ML DISP.SYRIN IV PRN ×7 (02:55→22:10)
--- NOTE | 2018-05-04 02:55 | NUR ---
MS RN NOTE - Dilaudid Patient requested Dilaudid for 9-10/10 pain in left foot and back (left foot osteomyelitis, chronic low back pain). 2mg IV Dilaudid administered per prn orders.
--- NOTE | 2018-05-04 04:16 | NUR ---
MS RN NOTE - Wound Care & behavior problems Wound care was provided to sacral/buttocks wound as ordered. Patient refused other wound care treatments and became verbally abusive to both myself and the AUTOMATION ENGINEER. Patient became very agitated because he did not have scrub pants, and he also believed that I was doing the wound care incorrectly, despite education.
--- NOTE | 2018-05-04 04:44 | NUR ---
MS RN NOTE - Behavior issue, refused IV fluids/medication Upon entering patient's room, I found the IV disconnected from patient's midline while still running. Patient admitted to disconnecting the IV himself. I explained to the patient that he needs to call me before disconnecting his IV and explained to him that now his IV Vanco is dripping onto the floor. I also educated the patient on the need for this antibiotic as well as ordered IV fluids. Despite education, the patient refused to be reconnected to IV fluids and Vancomycin. I estimate that about 50% of the 500ml bag was infused. Patient proceeded to raise his voice at me because of not having the right blankets and for "bothering him".
--- NOTE | 2018-05-04 05:27 | NUR ---
MS RN NOTE - Pt refuses wound tx and repositioning Patient refused wound care to bilateral heels. Patient has also refused turning and repositioning this shift.
[2018-05-04] MEDS: PIPERACILLIN /TAZOBACTAM 3.375 G in IV D5W 50 ML IV SCH ×4 (05:47→23:47)
--- NOTE | 2018-05-04 06:00 | NUR ---
MS RN NOTE - Dilaudid Patient requested Dilaudid for 9-10/10 pain in left foot, low back, and sacrum (left foot osteomyelitis, chronic low back pain, sacral wound). 2mg IV Dilaudid administered per prn orders.
[2018-05-04 06:34] LABS: BASOPHILS % (AUTO) 0.7 % (0.0-2.0); EOSINOPHILS % (AUTO) 5.4 % (0.0-6.0); HEMATOCRIT 32 % (39-51); LYMPHOCYTES # (AUTO) 1.4 /CMM (0.8-4.8); LYMPHOCYTES % (AUTO) 27.1 % (20.0-44.0); MEAN CORPUSCULAR HEMOGLOBIN 25 PG (26.0-33.0); MEAN CORPUSCULAR HGB CONC 32 g/dl (31.0-36.0); MEAN CORPUSCULAR VOLUME 78 fL (80-96); MONOCYTES # (AUTO) 0.4 /CMM (0.1-1.30); MONOCYTES % (AUTO) 8.4 % (2.0-12.0); NEUTROPHILS # (AUTO) 3.1 /CMM (1.8-8.9); NEUTROPHILS % (AUTO) 58.4 % (43.0-81.0); PLATELET COUNT (AUTO) 491 /CMM (150-450); RDW COEFFICIENT OF VARIATION 18.1 (11.5-15.0); RED BLOOD CELL COUNT(AUTO) 4.03 MIL/uL (4.5-6.0); WHITE BLOOD COUNT (AUTO) 5.3 K/uL (4.3-11.0)
[2018-05-04 06:44] LABS: CALCIUM, SERUM 8.7 mg/dL (8.5-10.1); CREATININE 0.6 mg/dL (0.6-1.3); MAGNESIUM 1.9 mg/dL (1.8-2.4); PHOSPHORUS 3.7 mg/dL (2.5-4.9); POTASSIUM 4.1 mmol/L (3.5-5.1)
--- NOTE | 2018-05-04 07:08 | NUR ---
MS RN CLOSING NOTE Patient is AAOx3, breathing comfortably on RA with no SOB, and no signs of acute distress. BIPIN midline is running NS at 75ml/hr. Colostomy is noted on left side and ileal conduit on the right; both stomas are beefy red in color. Left foot is wrapped with a dressing that is clean, dry, and intact; patient refused dressing change/wound care (see previous notes). Sacral wound is covered with a dressing - wound care provided. Patient did not sleep overnight, and his mood remains very labile. At times patient has been verbally abusive and uncooperative with myself and the CLOTH BEAMER. Patient is due for surgery today (05/04) for wound debridement; consents are signed. Bed is low/locked, two side rails up, and call jenkins within reach. Patient care endorsed to day shift nurse.
--- NOTE | 2018-05-04 07:41 | NUR ---
MS RN OPENING NOTES RECEIVED PT FROM NIGHTSFLFT NURSE IN STABLE CONDITION. PT IS A/O X3. NO SOB OR ACUTE SIGNS OF DISTRESS NOTED. HE IS CURRENTLY CALM AND SITING ON A CHAIR IN THE HALLWAY. COLOSTOMY NOTED TO BE INTACT. NO CONTENTS AT THIS TIME. ILEOSTOMY NOTED WELL WITH NO CONTENTS. NPO STATUS MAINTAINED PT IS SCHEDULED FOR OR DEBRIDEMENT TODAY AT 2PM. PT COMPLIANT WITH DIET ORDER AT THIS TIME. LEFT UPPER ARM MIDLINE NOTED TO BE PATENT AND INTACT. NO REDNESS OR SIGNS OF INFILTRATION NOTED. ADEQUATE BLOOD RETURN NOTED. LEFT HEEL WOUND DRESSINGS NOTED TO BE CLEAN, DRY, AND INTACT. PT REFUSING ASSESSMENT OF SACRAL WOUND AT THIS TIME. BED IN LOW LOCKED POSITION, SIDE RAILS UP X2, CALL LIGHT WITHIN REACH. WILL CONTINUE TO MONITOR
[2018-05-04] MEDS: DIVALPROEX SODIUM 250 MG TABLET.DR PO SCH ×3 (08:08→17:00)
[2018-05-04] MEDS: LACTOBACILLUS RHAMNOSUS GG 1 EACH CAP.SPRINK PO SCH ×2 (08:08→17:50)
[2018-05-04 08:15] VITALS: BP 108/65
[2018-05-04] MEDS: HYDROGEL DRESSING 90 GM TUBE TP SCH (09:00)
[2018-05-04] MEDS: DAKINS QUARTER STRENGTH (0.125%) 480 ML BOTTLE TOP SCH (09:00)
[2018-05-04] MEDS: diphenhydrAMINE HCL 50 MG/ML VIAL IV PRN ×3 (11:03→23:51)
[2018-05-04] MEDS: ONDANSETRON HCL/PF 4 MG/2 ML VIAL IVP PRN ×3 (11:07→23:51)
--- NOTE | 2018-05-04 13:41 | NUR ---
MS RN NOTES: OR TRANSFER PT WAS TAKEN TO OR IN STABLE CONDITION. FIELD ARTILLERY RADAR OPERATOR MADE AWARE THAT PT'S ZOSYN IS INFUSING AND HE HAS AN ORDER TO VANCO RIGHT AFTER. PER OR NURSE "WE WILL ADMINISTER HIS VANCO IN THE OR"
[2018-05-04] MEDS ORDERED: LIDOCAINE HCL/PF 1% 30 ML SDV ONE (13:50)
[2018-05-04] MEDS ORDERED: BUPIVACAINE MPF 0.5% W/EPI INJ 30 ML VIAL ONE (13:50)
[2018-05-04] MEDS ORDERED: FENTANYL PF 100MCG/2ML AMPUL ONE (13:53)
[2018-05-04] MEDS ORDERED: MIDAZOLAM HCL 2 MG/2ML VIAL ONE (13:53)
[2018-05-04 16:00] VITALS: BP 116/78
[2018-05-04] MEDS: RIVAROXABAN 10 MG TABLET PO SCH (18:00)
--- NOTE | 2018-05-04 19:00 | NUR ---
RN OPENING NOTES PT AWAKE AND ALERT, SITTING IN BED. PT IN ROOM AIR, TOLERATING WELL. COLOSTOMY BAG INTACT, ILEAL CONDUIT BAG CHANGED AND INTACT. LEFT FOOT DRESSING IS INTACT, DRY, NO SIGNS OF BLEEDING. LEFT UPPER MIDLINE 18G PATENT AND INTACT. DENIES ANY PAIN AT THIS MOMENT. SAFETY MEASURES IN PLACED, CALL LIGHT WITHIN REACH. WILL CONTINUE TO MONITOR
[2018-05-04 20:00] VITALS: BP 100/67
--- NOTE | 2018-05-04 21:29 | NUR ---
RN NOTES/ COCCYX DRESSING CHANGE DRESSING CHANGED, PT WANTS THE COCCYX AREA TO BE CLEANSED WITH NS, PAT DRY, PACKED DRY, COVERED WITH ABD DRESSING.
[2018-05-05] MEDS: VANCOMYCIN 1.25 GM in IV D5W 500 ML IV SCH (00:57)
--- NOTE | 2018-05-05 01:00 | NUR ---
PATIENT DISCONNECTED THE IV INFUSION HIMSELF. REFUSES TO BE CONNECTED FOR HIS SCHEDULED DOSE OF VANCO AT THIS TIME. TOLD ME TO COME BACK LATER AFTER HE GETS HIS DILAUDID. Addendum: 05/05/18 at 1515 by SARAHY DANIELLE RN FILED AT THE WRONG TIME.
[2018-05-05] MEDS: HYDROMORPHONE 1 MG/1 ML DISP.SYRIN IV PRN ×5 (01:10→13:28)
--- NOTE | 2018-05-05 04:45 | NUR ---
RN NOTES/COCCYX DRESSING CHANGE COCCYX DRESSING CHANGED. PT PREFERRED TO CLEANSED WITH NS, PAT DRY, PACKED DRY, COVERED WITH ABD DRESSING
[2018-05-05] MEDS: diphenhydrAMINE HCL 50 MG/ML VIAL IV PRN ×2 (05:51→12:20)
[2018-05-05] MEDS: ONDANSETRON HCL/PF 4 MG/2 ML VIAL IVP PRN (05:51)
[2018-05-05] MEDS: PIPERACILLIN /TAZOBACTAM 3.375 G in IV D5W 50 ML IV SCH ×2 (05:54→12:29)
--- NOTE | 2018-05-05 07:15 | NUR ---
MS RN OPENING NOTE RECEIVED PATIENT SITTING IN CHAIR IN A HALLWAY. ALERT ORIENTED X2-3. PATIENT APPEARS DELUSIONAL CONVERSING WITH PEOPLE THAT ARE NOT AROUND HIM, CALLING HIMSELF YENIFER FIGUEROA. PATIENT IS VERBALLY AGGRESSIVE WITH NO APPARENT REASON. IN NO APPARENT DISTRESS OR DISCOMFORT AT THIS TIME. RESPIRATIONS EVEN AND UNLABORED, ON ROOM AIR TOLERATING WELL. COLOSTOMY BAG ON THE LEFT AND ILIAL CONDUCT ON THE RIGHT, BOTH STOMAS ARE RED IN COLOR. LEFT FOOT DRESSING POST-OP. INTACT AND CLEAN. LEFT UPPER ARM MIDLINE 18G. PATENT AND INTACT. PATIENT REFUSES FLUIDS. PATIENT KEPT CLEAN AND COMFORTABLE. ALL NEEDS ATTENDED. SAFETY MEASURES IN PLACE, BED IN LOW LOCKED POSITION, SIDE RAILS UP X2, CALL LIGHT WITHIN EASY REACH. WILL CONTINUE TO MONITOR.
--- NOTE | 2018-05-05 07:30 | NUR ---
RN CLOSING NOTES PT AWAKE AND ALERT, SITTING IN THE CHAIR IN THE HALLWAY. PT IN ROOM AIR, TOLERATING WELL. COLOSTOMY BAG INTACT, ILEAL CONDUIT/UROSTOMY BAG CHANGED AND INTACT. LEFT FOOT DRESSING IS INTACT, DRY, NO SIGNS OF BLEEDING. COCCYX AREA DRESSING CHANGED. LEFT UPPER MIDLINE 18G PATENT AND INTACT. REPORTS PAIN, GIVEN PAIN RELIEF. SAFETY MEASURES IN PLACED, CALL LIGHT WITHIN REACH. WILL CONTINUE TO MONITOR
[2018-05-05 07:36] LABS: BASOPHILS % (AUTO) 0.6 % (0.0-2.0); EOSINOPHILS % (AUTO) 4.7 % (0.0-6.0); HEMATOCRIT 33 % (39-51); HEMOGLOBIN 10.1 g/dL (13.5-17.5); LYMPHOCYTES # (AUTO) 1.2 /CMM (0.8-4.8); LYMPHOCYTES % (AUTO) 23.1 % (20.0-44.0); MEAN CORPUSCULAR HEMOGLOBIN 24 PG (26.0-33.0); MEAN CORPUSCULAR HGB CONC 31 g/dl (31.0-36.0); MEAN CORPUSCULAR VOLUME 78 fL (80-96); MONOCYTES # (AUTO) 0.5 /CMM (0.1-1.30); MONOCYTES % (AUTO) 10.5 % (2.0-12.0); NEUTROPHILS # (AUTO) 3.1 /CMM (1.8-8.9); NEUTROPHILS % (AUTO) 61.1 % (43.0-81.0); PLATELET COUNT (AUTO) 521 /CMM (150-450); RDW COEFFICIENT OF VARIATION 18.2 (11.5-15.0); RED BLOOD CELL COUNT(AUTO) 4.19 MIL/uL (4.5-6.0); WHITE BLOOD COUNT (AUTO) 5.1 K/uL (4.3-11.0)
[2018-05-05 07:52] LABS: CALCIUM, SERUM 8.8 mg/dL (8.5-10.1); CREATININE 0.6 mg/dL (0.6-1.3); MAGNESIUM 1.6 mg/dL (1.8-2.4); PHOSPHORUS 4.1 mg/dL (2.5-4.9); POTASSIUM 4.9 mmol/L (3.5-5.1)
[2018-05-05 08:00] VITALS: BP_SYST 110; BP_SYST 140; BP_DIAS 60
[2018-05-05] MEDS: LACTOBACILLUS RHAMNOSUS GG 1 EACH CAP.SPRINK PO SCH (08:32)
[2018-05-05] MEDS: DIVALPROEX SODIUM 250 MG TABLET.DR PO SCH ×2 (08:32→12:30)
[2018-05-05] MEDS: DAKINS QUARTER STRENGTH (0.125%) 480 ML BOTTLE TOP SCH (08:41)
[2018-05-05] MEDS: HYDROGEL DRESSING 90 GM TUBE TP SCH (08:42)
[2018-05-05] MEDS ORDERED: RXVAN XX (08:57)
[2018-05-05] MEDS ORDERED: PIPE3.379 IV (08:57)
[2018-05-05] MEDS ORDERED: DIVA250T4 PO (08:57)
--- NOTE | 2018-05-05 09:00 | NUR ---
PATIENT IS VERBALLY ABUSIVE, CURSING OUT WHEN TRYING TO TAKE CARE OF HIS NEEDS.
[2018-05-05] MEDS: Magnesium 1GM/D5W 100ML PREMIX 100 ML IV SCH ×2 (10:18→11:00)
--- NOTE | 2018-05-05 10:58 | NUR ---
LANG and welfare case worker Niru Lanier met with pt. bedside to discuss discharge plan to [facility] today. Pt. is agitated and yelling stating no one has assisted him in changing his colostomy bag. SW provided active listening and emotional support. LANG also gave pt. pair of sweats and two T-shirts and boxers per his request. Pt. to be discharged to SNF today at 1PM. Pt. agreed.
--- NOTE | 2018-05-05 11:10 | NUR ---
STARTED MAGNESIUM REPLACEMENT. HALF WAY THROUGH THE INFUSION PATIENT CALLED AND TOLD ME TO DISCONNECT HIM FROM THE INFUSION HE DOESN'T WANT TO RECEIVE IT NOW. INFUSION STOPPED AT THIS TIME.
--- NOTE | 2018-05-05 13:00 | NUR ---
PATIENT DISCONNECTED THE IV INFUSION HIMSELF. REFUSES TO BE CONNECTED FOR HIS SCHEDULED DOSE OF VANCO AT THIS TIME. TOLD ME TO COME BACK LATER AFTER HE GETS HIS DILAUDID.
--- NOTE | 2018-05-05 13:55 | NUR ---
MS BISQUE GRADER NOTE RECEIVED ORDER FOR DISCHARGE. PATIENT IS STABLE, ALERT ORIENTED X3. IN NO APPARENT DISTRESS OR DISCOMFORT AT THIS TIME. RESPIRATIONS EVEN AND UNLABORED. VITAL SIGNS ARE STABLE, WAS GIVEN PAIN MEDICATION RECENTLY PER PATIENT'S REQUEST. DISCHARGE PREPARED VIA EXITCARE. ATTEMPTED TO REVIEW DISCHARGE INSTRUCTIONS AND SIGN PAPERWORK BUT PATIENT REFUSED STATING " HES NOT GONNA LEAVE BECAUSE SNF NURSES ARE NOT GONNA TAKE GOOD CARE OF HIM THEY DO HERE AT THE HOSPITAL AND HE WANTS TO STAY HERE CORRECTION". PATIENT IS VERBALLY ABUSIVE, NON-COMPLIANT, YELLS AND USES CURSE WORDS TOWARDS THE HOSPITAL STAFF. CASE MANAGEMENT IS INVOLVED AT THE PATIENT'S BEDSIDE ALONG WITH SECURITY. ALL THE BELONGINGS ARE CHECKED AND PRESENT WITH THE PATIENT ALONG WITH MORE CLOTHES THAT HE RECEIVED FROM THE HOSPITAL. PATIENT HAS LEFT UPPER ARM MIDLINE 18G. PATENT AND INTACT. GOING TO STAY IN PLACE PER DOCTOR'S ORDER THE PATIENT IS GOING TO CONTINUE IV ABX AT THE SNF. PATIENT REFUSED SKIN ASSESSMENT AND PICTURES. COLOSTOMY AND UROSTOMY BAGS ARE CLEAN AND INTACT. REPORT GIVEN TO IMAN COE AT [facility]. PATIENT'S WHEELCHAIR WAS SENT WITH THE PATIENT. PATIENT LEFT THE UNIT ON A GURNEY VIA AMBULANCE AT 1355.
== END 2018-05-05 14:00 | DRG 463 ==
LOC: ER 23:54 → MED 04-28 07:19
PROVIDERS: ADMIT Nurse Practitioner Acute Care; ATTEND Nurse Practitioner Acute Care
PROC: 05H633Z Insertion of Infusion Device into Left Subclavian Vein, Percutaneous Approach (ICD-10-PCS; 2018-05-01)
PROC: 0JBR0ZZ Excision of Left Foot Subcutaneous Tissue and Fascia, Open Approach (ICD-10-PCS; 2018-05-04)
PROC: 0QBM0ZX Excision of Left Tarsal, Open Approach, Diagnostic (ICD-10-PCS; principal; 2018-05-04 14:00)
DX: M86.9 Osteomyelitis, unspecified (principal); L89.154 Pressure ulcer of sacral region, stage 4; E43 Unspecified severe protein-calorie malnutrition; G82.20 Paraplegia, unspecified; L03.116 Cellulitis of left lower limb; E87.1 Hypo-osmolality and hyponatremia; S24.102S Unspecified injury at T2-T6 level of thoracic spinal cord, sequela; W34.00XS Accidental discharge from unspecified firearms or gun, sequela; L97.529 Non-pressure chronic ulcer of other part of left foot with unspecified severity; Z59.0 Homelessness; Z99.3 Dependence on wheelchair; F39 Unspecified mood [affective] disorder; Z86.718 Personal history of other venous thrombosis and embolism; Z91.19 Patient's noncompliance with other medical treatment and regimen; Z79.01 Long term (current) use of anticoagulants; E83.42 Hypomagnesemia; Z68.25 Body mass index [BMI] 25.0-25.9, adult; D63.8 Anemia in other chronic diseases classified elsewhere; Z93.3 Colostomy status; D50.9 Iron deficiency anemia, unspecified; D47.3 Essential (hemorrhagic) thrombocythemia; F22 Delusional disorders; E88.09 Other disorders of plasma-protein metabolism, not elsewhere classified; I89.0 Lymphedema, not elsewhere classified; G89.29 Other chronic pain; M54.5 Low back pain; F17.210 Nicotine dependence, cigarettes, uncomplicated
CPT/HCPCS: 36415; 73630-TC; 80048-TC; 80061-TC; 80076-TC; 80202-TC; 83735-TC; 84100-TC; 85025-TC; 85652-TC; 86140-TC; 87040-TC; 87070-TC; 87081-TC; 87186-TC; 88305-TC; 88311-TC; 88312-TC; A4606; A6248; A6253; A6402; A6403; J1170; J1200; J2060; J2250; J2270; J2405; J2543; J3010; J3370; J3475; J3490; J7030; J7060; Q0163; Z7610

== ENCOUNTER 2018-05-05 21:51 | Emergency (ER) | payer MEDICARE, OTHER ==
[~2018-05-05] VITALS: Ht 177.8 cm; Wt 79.4 kg
[~2018-05-05 21:51] MED LIST changes: +DIVA250T4 PO; +PIPE3.379 IV; +RXVAN XX
--- NOTE | 2018-05-05 21:51 | NUR ---
BBPA FROM [facility] C/C LEFT FOOT PAIN/INFECTION. VSS NO ACUTE DISTRESS NOTED AT THIS TIME. PT HAS SHOWN TO ER WITH LEFT UPPER ARM MIDLINE. PT IS ALERT AND ORIENTED X3 ABLE TO MAKE NEEDS KNOWN. WILL CONTINUE TO MONITOR FOR ANY CHANEGS DURING THE SHIFT.
--- NOTE | 2018-05-05 21:52 | NUR ---
ER MD PINEDA AT BEDSIDE FOR EVAL
[2018-05-05] MEDS ORDERED: PIPERACILLIN /TAZOBACTAM 3.375 G in IV D5W 50 ML IV ONE (22:30)
[2018-05-05] MEDS ORDERED: ONDANSETRON HCL/PF - ER 4 MG/2 ML VIAL IV ONE (22:30)
[2018-05-05] MEDS ORDERED: HYDROCODONE/APAP 10/325MG 1 EA TABLET PO ONE (22:30)
--- NOTE | 2018-05-05 23:15 | NUR ---
SPOKE WITH DR MARTÍNEZ. PER DR MARTÍNEZ HE CALLED THE FACILITY [facility] TO SPEAK WITH THE CHARGE NURSE. HE INFORMED THAT CHARGE NURSE WAS VERY NONCOOPERATIVE AND STATED "I DONT WANT TO DEAL WITH THIS" BEFORE PASSING THE PHONE TO A DIFFERENT MALE STAFF MEMBER. DR MARTÍNEZ ADVISED THAT THE MALE STAFF MEMBER STATED TO HIM THAT "WE DO NOT HAVE THE RESOURCES TO HANDLE HIS[THE PATIENT'S] ATTITUDE. YOU HAVE TO DEAL WITH IT."
[2018-05-05] MEDS ORDERED: PIPERACILLIN /TAZOBACTAM 3.375 G VIAL IV ONE (23:54)
[2018-05-05] MEDS ORDERED: ONDANSETRON HCL/PF 4 MG/2 ML VIAL ONE (23:54)
[2018-05-05] MEDS ORDERED: HYDROCODONE/APAP 10/325MG 1 EA TABLET ONE (23:54)
--- NOTE | 2018-05-06 00:10 | NUR ---
SPOKE WITH TIFFANIE WITH [facility]. ETA 20 MINUTES TRIP#[id number]
--- NOTE | 2018-05-06 00:30 | NUR ---
SPOKE TO MELANIE/MARYSOL AT THE FACILITY ABOUT PT RETURNING TO FACILITY. STATED "WE HAVE TO WAIT FOR DON IN THE MORNING ABOUT THIS PT". INFORMED PT CANNOT STAY IN THE ER TILL MORNING AWAITING FOR THE DON. "NO MEDICAL NECESSITY FOR THE PT TO BE ADMITTED" PER ER DR. PINEDA
--- NOTE | 2018-05-06 00:32 | NUR ---
SPOKE WITH PADMINI AT [facility]. TOLD PADMINI THAT CHARGE NURSE DINO AT [facility] WAS INFORMED OF PATIENT'S RETURN
[2018-05-06 01:28] VITALS: BP 129/80
== END 2018-05-06 01:28 ==
LOC: ER 21:56
DX: L97.529 Non-pressure chronic ulcer of other part of left foot with unspecified severity (principal); G82.20 Paraplegia, unspecified; G89.4 Chronic pain syndrome; F17.200 Nicotine dependence, unspecified, uncomplicated; Z93.3 Colostomy status; Z88.8 Allergy status to other drugs, medicaments and biological substances; Z88.5 Allergy status to narcotic agent; Z71.6 Tobacco abuse counseling
CPT/HCPCS: 96365; 96375; 99284; 99406; A4606; A6253; J2405 ×2; J2543 ×2; J7060; Z7610

== ENCOUNTER 2018-05-06 03:45 | Emergency (ER) | payer MEDICARE, OTHER ==
[~2018-05-06] VITALS: Ht 177.8 cm; Wt 79.4 kg
[~2018-05-06 03:45] MED LIST changes: -AMOX-430 PO; -LINE600T2 PO
--- NOTE | 2018-05-06 03:45 | NUR ---
BBPA D/T RECEIVING FACILITY REFUSING TO TAKE PT. PT C/O OF CHRONIC L LOWER EXTR PAIN. VSS NO ACUTE DISTRESS NOTED AT THIS TIME. ATTEMPTED TO CALL FACILITY BUT THEY DID NOT PICKUP AND WOULD NOT SPEAK TO EMT TRANSPORT ACCORDING TO EMS "WROTE ON PAPER THAT THEY REFUSE AND PUT IT UP TO THE GLASS". PT IS ALERT AND ORIENTED ABLE TO MAKE NEEDS KNOWN. SKIN INTEGRITY IS A PROBLEM DUE TO RECENT DEBRIDEMENT ON LEFT HEEL. WILL CONTINUE TO MONITOR FOR ANY CHANGES DURING THE SHIFT.
--- NOTE | 2018-05-06 03:46 | NUR ---
ER MD PINEDA AT BEDSIDE
[2018-05-06] MEDS ORDERED: HYDROCODONE/APAP 10/325MG 1 EA TABLET ONE (04:18)
[2018-05-06] MEDS ORDERED: HYDROCODONE/APAP 10/325MG 1 EA TABLET PO ONE (04:30)
[2018-05-06] MEDS ORDERED: LORAZEPAM INJ 2 MG/ML VIAL ONE (04:49)
[2018-05-06] MEDS ORDERED: LORAZEPAM INJ 2 MG/ML VIAL IV ONE (05:00)
[2018-05-06] MEDS ORDERED: DIVALPROEX SODIUM 250 MG TABLET.DR PO ONE (05:00)
--- NOTE | 2018-05-06 06:28 | NUR ---
PER MD COLEMAN, PT ALLOWED TO BE DISCHARGED WITH MIDLINE IN PLACE IN THE BIPIN.
[2018-05-06 06:36] VITALS: BP 125/81
== END 2018-05-06 06:37 | disposition home or self-care (01) ==
LOC: ER 03:48
DX: L97.529 Non-pressure chronic ulcer of other part of left foot with unspecified severity (principal); G89.4 Chronic pain syndrome; G82.20 Paraplegia, unspecified; F17.200 Nicotine dependence, unspecified, uncomplicated; G83.9 Paralytic syndrome, unspecified; Z71.6 Tobacco abuse counseling; Z93.3 Colostomy status; Z88.8 Allergy status to other drugs, medicaments and biological substances; Z88.5 Allergy status to narcotic agent
CPT/HCPCS: 96374; 99284; 99406; A4606; A6253; A6403; J2060; Z7610

== ENCOUNTER → 2018-05-08 | Emergency (ER) | payer MEDICARE, OTHER ==
[~2018-05-08] VITALS: Ht 167.6 cm; Wt 61.2 kg
[~2018-05-08] MED LIST changes: +CEFEPIME 1 GM VIAL ONE; +CEFEPIME 2 GM in IV NS 0.9% 50 ML IV SCH
--- NOTE | 2018-05-08 00:38 | NUR ---
PT TO ER BED 15. [id number] FR STREETS FOR C/O LT FOOT PAIN, DRAINAGE, ON IV ANTIBIOTICS FOR OSTEOMYELITIS. PT PLACED ON DRUM REEL CUTTER. VSS/RESP EVEN UNLABORED/NAD NOTED/SKIN WARM AND DRY/AFEBRILE/DENIES N-V-D/AOX4. AWAITNG MD QUILES.
--- NOTE | 2018-05-08 02:12 | NUR ---
MEDICATED PER MD ORDERS.
--- NOTE | 2018-05-08 06:13 | NUR ---
PER VO - MAXIPIME 2GM IV TO BE GIVEN EVERY 8 HOURS. LAST DOSE GIVEN AT 0200,NEXT DOSE DUE AT 1000.
[2018-05-08 06:55] VITALS: BP 134/84
--- NOTE | 2018-05-08 10:21 | NUR ---
WOUND CARE RENDERED, TOLERATED WELL. NEW COLOSTOMY BAG PROVIDED WELL.
== END | disposition home or self-care (01) ==
LOC: ER 00:26
DX: M86.172 Other acute osteomyelitis, left ankle and foot (principal); F17.200 Nicotine dependence, unspecified, uncomplicated; Z59.0 Homelessness; Z93.3 Colostomy status; Z88.5 Allergy status to narcotic agent; Z88.6 Allergy status to analgesic agent; Z91.14 Patient's other noncompliance with medication regimen
CPT/HCPCS: 96365; 99284; A4216 ×2; A4362; A4606; A6253; A6402 ×2; J0692 ×2; Z7610

== ENCOUNTER 2018-09-04 18:24 | Emergency (ER) | payer MEDICARE, MEDICAID ==
[~2018-09-04] VITALS: Ht 154.9 cm; Wt 70.3 kg
[~2018-09-04 18:24] MED LIST changes: -CEFEPIME 1 GM VIAL ONE; -CEFEPIME 2 GM in IV NS 0.9% 50 ML IV SCH
[2018-09-04] MEDS ORDERED: PIPERACILLIN /TAZOBACTAM 3.375 G in IV D5W 50 ML IV ONE (19:00)
[2018-09-04] MEDS ORDERED: VANCOMYCIN 1 GM in IV D5W 250 ML IV ONE (19:00)
[2018-09-04] MEDS ORDERED: HYDROMORPHONE INJ 2 MG/ML DISP.SYRIN ONE (19:12)
[2018-09-04] MEDS ORDERED: HYDROMORPHONE 1 MG/1 ML DISP.SYRIN IV ONE (19:30)
[2018-09-04] MEDS ORDERED: PIPERACILLIN /TAZOBACTAM 3.375 G VIAL IV ONE (19:40)
[2018-09-04] MEDS ORDERED: VANCOMYCIN 1 GM VIAL ONE (19:40)
--- NOTE | 2018-09-04 19:51 | NUR ---
PT IS VERBALLY ABUSIVE TO STAFF. YELLING AND DEMANDING MEDICATIONS AND FOOD. INAPPROPRIATE TOWARD WOMEN. MD AWARE
[2018-09-04 20:03] LABS: BASOPHILS % (AUTO) 0.5 % (0.0-2.0); EOSINOPHILS % (AUTO) 3.1 % (0.0-6.0); HEMATOCRIT 38 % (39-51); HEMOGLOBIN 11.8 g/dL (13.5-17.5); LYMPHOCYTES # (AUTO) 0.7 /CMM (0.8-4.8); LYMPHOCYTES % (AUTO) 10.1 % (20.0-44.0); MEAN CORPUSCULAR HGB CONC 31 g/dl (31.0-36.0); MEAN CORPUSCULAR VOLUME 69 fL (80-96); MONOCYTES # (AUTO) 0.7 /CMM (0.1-1.30); MONOCYTES % (AUTO) 9.7 % (2.0-12.0); NEUTROPHILS # (AUTO) 5.5 /CMM (1.8-8.9); NEUTROPHILS % (AUTO) 76.6 % (43.0-81.0); PLATELET COUNT (AUTO) 528 /CMM (150-450); RED BLOOD CELL COUNT(AUTO) 5.52 MIL/uL (4.5-6.0); WHITE BLOOD COUNT (AUTO) 7.2 K/uL (4.3-11.0)
--- NOTE | 2018-09-04 20:06 | NUR ---
LAB SEAN BLOOD. PT REFUSED BLOOD CULTURES TO BE DRAWN. DR. GRANT IS AWARE.
[2018-09-04 20:13] LABS: CALCIUM, SERUM 9.2 mg/dL (8.5-10.1); CARBON DIOXIDE 26 mmol/L (21-32); CHLORIDE 104 mmol/L (98-107); CREATININE 0.6 mg/dL (0.6-1.3); GLUCOSE 89 mg/dL (74-106); POTASSIUM 3.9 mmol/L (3.5-5.1); SODIUM SERUM 139 mmol/L (136-145); UREA NITROGEN, BLOOD 13 mg/dL (7-18)
[2018-09-04 20:18] LABS: ALANINE AMINOTRANSFERASE 19 U/L (12-78); ALBUMIN 2.9 g/dL (3.4-5.0); ALKALINE PHOSPHATASE 100 U/L (46-116); ASPARTATE AMINOTRANSFERASE 11 U/L (15-37); BILIRUBIN,TOTAL 0.2 mg/dL (0.2-1.0)
--- NOTE | 2018-09-04 20:28 | NUR ---
PT REFUSING ALL HELP AND CARE FROM STAFF. BEING THREATFUL AND VERBALLY ABUSIVE TOWARDS STAFF. AWARE
--- NOTE | 2018-09-04 20:29 | NUR ---
PT LEAVING AMA BUT REFUSES TO SIGN AMA FORM. AWARE. PT HAS BEEN EXPLAINED THE RISKS AND CONSEQUENCES OF LEAVING, STILL CHOOSING TO LEAVE.
[2018-09-04 20:52] VITALS: BP 130/70
[2018-09-04 20:52] LABS: BASOPHILS % (MANUAL) 0 % (0.0-2.0); EOSINOPHILS % (MANUAL) 1 % (0-4); LYMPHOCYTES % (MANUAL) 16 % (16-48); MONOCYTES % (MANUAL) 12 % (0-11.0); NEUTROPHILS % (MANUAL) 71 (42-76)
--- NOTE | 2018-09-04 20:59 | NUR ---
ASSUMED CARE OF PT FOR D/C PURPOSES ONLY.
== END 2018-09-04 21:00 | disposition left against medical advice (07) ==
LOC: EDBD → ER 18:30
DX: L97.428 Non-pressure chronic ulcer of left heel and midfoot with other specified severity (principal); G89.29 Other chronic pain; G83.9 Paralytic syndrome, unspecified; F17.200 Nicotine dependence, unspecified, uncomplicated; R94.31 Abnormal electrocardiogram [ECG] [EKG]; Z88.5 Allergy status to narcotic agent; Z93.3 Colostomy status; Z88.9 Allergy status to unspecified drugs, medicaments and biological substances
CPT/HCPCS: 36415; 71045; 80048; 80076; 83605; 84484; 85025; 85652; 85730; 93005; 96374; 99284; A4606; J1170; J2543; J7060; J3370

== ENCOUNTER 2018-09-08 13:15 | Emergency (ER) | payer MEDICARE, MEDICAID ==
[~2018-09-08] VITALS: Ht 152.4 cm; Wt 59.0 kg
[2018-09-08 13:24] VITALS: BP 125/59
--- NOTE | 2018-09-08 14:53 | NUR ---
Nuzhat from ED called SW to see the pt. for homelessness. Pt. is a 43 year old male with a history of paraplegia, s/p colostomy, osteomyelitis, drug seeking behavior, , and medical noncompliance, and who presented to the ED for evaluation of a chronic left heel ulcer. The patient states that he was treated with antibiotics 3 days ago, but is now requesting admission and IV antibiotics for his chronic ulcers. The patient has a history of noncompliance with medical care in the ED. LANG is familiar with the pt. from previous admissions and ER visits. LANG met with pt. bedside. Pt. has a foul odor. Pt. is alert and oriented x 4. Pt. goes by the name " Evelio Moyer." Pt. is wheelchair bound and is able to wheel himself independently. Pt. is delusional and states his girlfriend is Gail Schafer, newscaster from [employer]. LANG inquired with pt. where he was staying prior to coming to the ED. Pt. states he was at [facility] and discharged yesterday to [facility]. Pt. left AMA and went to [facility] to get pain medication. Pt. was denied pain medication and stated, he decided to come here to [facility]. LANG asked pt. if he is homeless, Pt. stated, " I live at my mama's house, and I am going there." SW offered pt. resources, but he declined. Pt. was offered clean clothes, a meal with coca cola and a tap card for transportation. CAROLIN Snyder was assisting pt. in changing his clothes, however, pt. became belligerent and began using foul language with the nurse. Pt. is very aggressive and hostile towards the nurse. Homeless Patient Waiver form was signed by the pt. and placed in pt's chart. No other social service needs are required at this time. SW is available, if needed.
== END 2018-09-08 14:42 | disposition home or self-care (01) ==
LOC: EDBD → ER 13:16
DX: L89.629 Pressure ulcer of left heel, unspecified stage (principal); G89.29 Other chronic pain; F91.8 Other conduct disorders; G82.20 Paraplegia, unspecified; F17.200 Nicotine dependence, unspecified, uncomplicated; Z93.3 Colostomy status; Z91.14 Patient's other noncompliance with medication regimen; Z88.5 Allergy status to narcotic agent; Z88.8 Allergy status to other drugs, medicaments and biological substances
CPT/HCPCS: A6403

== ENCOUNTER 2018-09-08 20:55 | Emergency (ER) | payer MEDICARE, MEDICAID ==
[~2018-09-08] VITALS: Ht 167.6 cm; Wt 74.8 kg
[2018-09-08 21:12] VITALS: BP 128/78
== END 2018-09-08 21:50 | disposition home or self-care (01) ==
LOC: EDBD → ER 20:56
DX: L89.629 Pressure ulcer of left heel, unspecified stage (principal); G89.29 Other chronic pain; G82.20 Paraplegia, unspecified; F17.200 Nicotine dependence, unspecified, uncomplicated; Z93.3 Colostomy status; Z88.5 Allergy status to narcotic agent; Z88.8 Allergy status to other drugs, medicaments and biological substances

== ENCOUNTER 2018-10-07 16:32 | Inpatient (IN) | payer MEDICARE, MEDICAID ==
[~2018-10-07] VITALS: Ht 172.7 cm; Wt 63.5 kg
--- NOTE | 2018-10-07 17:00 | NUR ---
CALLED PT IN WR, NO RESPONSE.
--- NOTE | 2018-10-07 17:53 | NUR ---
" IM FOR MY OSTEOMYLITIS ". REQUESTING BLOOD DRAW ON HIS PICC LINE. PT IS VERBALLY ABUSIVE TOWARD STAFF, DIFFICULT TO GET A WORD IN. HE IS WC BOUND DUE TO PARALYSIS. HE IS AOX4, VSS, RR EVEN AND UNLABORED ON RA. ULCER ON LEFT FOOT AND PICC/MIDLINE IN SHAHID. READY FOR EVAL.
--- NOTE | 2018-10-07 18:20 | NUR ---
PT REFUSED EKG
[2018-10-07] MEDS ORDERED: PIPERACILLIN /TAZOBACTAM 3.375 G VIAL IV ONE (18:29)
[2018-10-07] MEDS ORDERED: KETOROLAC TROMETHAMINE INJ 30 MG/ML VIAL ONE (18:29)
[2018-10-07] MEDS ORDERED: VANCOMYCIN 1 GM VIAL ONE (18:29)
[2018-10-07] MEDS ORDERED: VANCOMYCIN 1 GM in IV D5W 250 ML IV ONE (18:30)
[2018-10-07] MEDS ORDERED: PIPERACILLIN /TAZOBACTAM 3.375 G in IV D5W 50 ML IV ONE (18:30)
[2018-10-07] MEDS ORDERED: IV NS 0.9% 1,000 ML BAG IV ONE (18:30)
[2018-10-07] MEDS ORDERED: KETOROLAC TROMETHAMINE INJ 30 MG/ML VIAL IV ONE (18:30)
[2018-10-07 18:42] LABS: BASOPHILS # (AUTO) 0.1 /CMM (0.0-0.2); BASOPHILS % (AUTO) 0.7 % (0.0-2.0); EOSINOPHILS % (AUTO) 3.9 % (0.0-6.0); HEMATOCRIT 33 % (39-51); HEMOGLOBIN 10.3 g/dL (13.5-17.5); LYMPHOCYTES # (AUTO) 1.1 /CMM (0.8-4.8); LYMPHOCYTES % (AUTO) 14.6 % (20.0-44.0); MEAN CORPUSCULAR HGB CONC 31 g/dl (31.0-36.0); MEAN CORPUSCULAR VOLUME 66 fL (80-96); MONOCYTES # (AUTO) 0.7 /CMM (0.1-1.30); MONOCYTES % (AUTO) 9.4 % (2.0-12.0); NEUTROPHILS # (AUTO) 5.4 /CMM (1.8-8.9); NEUTROPHILS % (AUTO) 71.4 % (43.0-81.0); PLATELET COUNT (AUTO) 449 /CMM (150-450); RED BLOOD CELL COUNT(AUTO) 5.02 MIL/uL (4.5-6.0); WHITE BLOOD COUNT (AUTO) 7.6 K/uL (4.3-11.0)
--- NOTE | 2018-10-07 18:45 | NUR ---
PT MORE CALM AND RELAXED, NOT VERBALLY ABUSIVE.
[2018-10-07] MEDS ORDERED: diphenhydrAMINE HCL 50 MG/ML VIAL ONE (18:49)
[2018-10-07 18:53] LABS: CALCIUM, SERUM 9.3 mg/dL (8.5-10.1); CREATININE 0.5 mg/dL (0.6-1.3); POTASSIUM 4.9 mmol/L (3.5-5.1)
[2018-10-07 18:59] LABS: ALBUMIN 2.8 g/dL (3.4-5.0); BILIRUBIN,TOTAL 0.3 mg/dL (0.2-1.0); TOTAL PROTEIN, SERUM 8.7 g/dL (6.4-8.2)
[2018-10-07] MEDS ORDERED: diphenhydrAMINE HCL 50 MG/ML VIAL IV ONE (19:00)
[2018-10-07 19:27] LABS: EOSINOPHILS % (MANUAL) 3 % (0-4); LYMPHOCYTES % (MANUAL) 12 % (16-48); MONOCYTES % (MANUAL) 6 % (0-11.0); NEUTROPHILS % (MANUAL) 79 (42-76)
--- NOTE | 2018-10-07 19:41 | NUR ---
JENY CALLED ITS [facility]
--- NOTE | 2018-10-07 20:42 | NUR ---
ADMIT RM 317 LAMAR ALCAZAR
--- NOTE | 2018-10-07 21:07 | NUR ---
REPORT GIVEN TO CAROLIN WILSON FOR 317-1 M/S
--- NOTE | 2018-10-07 21:15 | NUR ---
PT TRANSFERRED TO FLOOR.
[2018-10-07] MEDS ORDERED: IV NS 0.9% 1,000 ML IV PRN (21:19)
[2018-10-07] MEDS ORDERED: Z GUARD REMEDY 2 OZ OINT TP PRN (21:30)
[2018-10-07] MEDS ORDERED: HYDROCODONE/APAP 5/325MG 1 EACH TABLET PO PRN (21:30)
[2018-10-07] MEDS ORDERED: MAG HYDROX/AL HYDROX/SIMETH 30 ML UDC PO PRN (21:30)
[2018-10-07] MEDS ORDERED: ZOLPIDEM TARTRATE 5 MG TABLET PO PRN (21:30)
[2018-10-07] MEDS ORDERED: ACETAMINOPHEN 325 MG TABLET PO PRN (21:30)
[2018-10-07] MEDS ORDERED: MAGNESIUM HYDROXIDE 30 ML UDC PO PRN (21:30)
--- NOTE | 2018-10-07 22:30 | NUR ---
RN NOTES RECEIVE PT FROM [facility]IA [facility] AT 2116 PT A/O X 3, ADMIT TO MEDICAL SURGICAL FLOOR. RESPIRATIONS EVEN AND UNLABORED. ILEAL CONDUIT AT THE R LOWER ABDOMEN AND COLOSTOMY IN THE LEFT LQ PRESENT, RARAPLEGIA AND HAS ABUSIVE BEHAVIOR, UNCOOPERATIVE AND BELLIGERENT USING FOUL LANGUAGE WITH STAFF REFUSED TO HAVE SKIN ASSESSED AND PICTURES TO BE TAKEN. DRESSING CHANGED OFFERED PT STATED "LEAVE ME ALONE I WILL DO IT IF I WANT TO" EXPLAINED RISKS AND BENEFITS PER PT WANTS ONLY HIS PAIN IV PAIN MEDICATION. NEEDS ATTENDED AND ANTICIPATED. SAFETY MEASURES IN PLACE WILL CONTINUE TO MONITOR.
[2018-10-07] MEDS: HYDROMORPHONE INJ 2 MG/ML DISP.SYRIN IV PRN (22:43)
[2018-10-08] VITALS: BP_SYST 108; BP_SYST 128; BP_DIAS 64; BP_DIAS 80
--- NOTE | 2018-10-08 | NUR ---
MS RN PT AGREED TO TAKE HIS VITAL SIGNS NOW
[2018-10-08] MEDS ORDERED: PIPERACILLIN /TAZOBACTAM 3.375 G VIAL IV ONE ×2 (00:14→06:02)
[2018-10-08] MEDS ORDERED: VANCOMYCIN 1 GM VIAL ONE (00:23)
[2018-10-08] MEDS ORDERED: diphenhydrAMINE HCL 50 MG/ML VIAL IV PRN (00:30)
--- NOTE | 2018-10-08 00:30 | NUR ---
PAGED TRCIIA ALCAZAR NP PT REQUESTED TO HAVE BENADRYL FOR ITCHING PER OTTONIEL OK TO GIVE BENADRYL 25 MG IVP Q6HR PRN FOR ITCHING READ BACK AND VERIFIED ORDERS NOTED AND CARRIED OUT
[2018-10-08] MEDS: ZOSYN IVPB 3.375 G in IV D5W 50ml IV SCH ×2 (00:50→06:03)
[2018-10-08] MEDS: diphenhydrAMINE HCL 50 MG/ML VIAL IV PRN ×2 (00:53→06:55)
[2018-10-08] MEDS: ONDANSETRON HCL/PF 4 MG/2 ML VIAL IVP PRN ×2 (00:53→06:55)
[2018-10-08] MEDS ORDERED: VANCOMYCIN 1 GM in IV D5W 250ml IV ONE (03:00)
[2018-10-08] MEDS: HYDROMORPHONE INJ 2 MG/ML DISP.SYRIN IV PRN ×2 (04:09→08:12)
--- NOTE | 2018-10-08 06:18 | NUR ---
RN CLOSING NOTE PT IN BED WATCHING TV, AM CARE PROVIDED. WOUND CARE DRESSING CHANGE DONE TO THE SACRUM AND L FOOT PT STILL REFUSING PHOTOS DESPITE EXPLAINING RISKS AND BENEFITS. UNABLE TO DO BODY ASSESSMENT PER PT "NO PHOTOS JUST CHANGE THE DRESSING" NOT IN DISTRESS. STABLE, RESPIRATIONS EVEN AND UNLABORED. NURSING CARE RENDERED, KEPT CLEAN AND DRY AND COMFORT, NEEDS ATTENDED AND ANTICIPATED. SAFETY MEASURES IN PLACE, CALL LIGHT WITHIN REACH. WILL ENDORSE TO THE NEXT SHIFT.
[2018-10-08] MEDS ORDERED: PANTOPRAZOLE 40 MG TABLET.DR PO SCH (07:30)
--- NOTE | 2018-10-08 07:30 | NUR ---
RN NOTES PATIENT A/OX4, ON A WHEELCHAIR, WHEELING HIMSELF AROUND THE HALLWAYS. NO S/SX OF DISTRESS NOTED. C/O MILD PAIN AT THIS TIME, KEPT COMFORTABLE, NEEDS ATTENDED, CALL LIGHT WITHIN REACH, WILL CONTINUE TO MONITOR.
[2018-10-08 08:00] VITALS: BP 99/65
[2018-10-08 08:05] LABS: BASOPHILS % (AUTO) 0.3 % (0.0-2.0); EOSINOPHILS % (AUTO) 6.6 % (0.0-6.0); HEMATOCRIT 31 % (39-51); HEMOGLOBIN 9.5 g/dL (13.5-17.5); LYMPHOCYTES # (AUTO) 1.4 /CMM (0.8-4.8); LYMPHOCYTES % (AUTO) 23.5 % (20.0-44.0); MEAN CORPUSCULAR HGB CONC 31 g/dl (31.0-36.0); MEAN CORPUSCULAR VOLUME 66 fL (80-96); MONOCYTES # (AUTO) 0.7 /CMM (0.1-1.30); MONOCYTES % (AUTO) 11.1 % (2.0-12.0); NEUTROPHILS # (AUTO) 3.5 /CMM (1.8-8.9); NEUTROPHILS % (AUTO) 58.5 % (43.0-81.0); PLATELET COUNT (AUTO) 391 /CMM (150-450); RED BLOOD CELL COUNT(AUTO) 4.68 MIL/uL (4.5-6.0); WHITE BLOOD COUNT (AUTO) 6.1 K/uL (4.3-11.0)
[2018-10-08 08:23] LABS: CALCIUM, SERUM 8.5 mg/dL (8.5-10.1); CREATININE 0.6 mg/dL (0.6-1.3); MAGNESIUM 1.9 mg/dL (1.8-2.4); PHOSPHORUS 3.6 mg/dL (2.5-4.9); POTASSIUM 3.7 mmol/L (3.5-5.1)
[2018-10-08] MEDS ORDERED: FEE PK DOSING 1 MIN EA MC ONE (08:52)
[2018-10-08] MEDS ORDERED: DIVALPROEX SODIUM 250 MG TABLET.DR PO SCH (09:00)
[2018-10-08] MEDS ORDERED: APIXABAN 5 MG TABLET PO SCH (09:00)
--- NOTE | 2018-10-08 09:45 | NUR ---
RN NOTES CASE MANAGEMENT ATTEMPTED TO TALK TO PATIENT ABOUT PLACEMENT, PATIENT BECAME UPSET AND STARTED YELLING. SECURITY ON STAND BY. PATIENT IS INAPPROPRIATE AND DISRESPECTFUL, VERBALLY ABUSIVE TO STAFF. APPROACHED PATIENT IN A CALM MANNER. INFORMED HIM THAT DR. MARTÍNEZ, DISCONTINUED HIS DILAUDID AND PHU VARGHESE MD STATED PATIENT DOES NOT NEED IT AT THIS TIME. PATIENT BECAME ANGRIER AND WENT TO THE NURSES STATION, STARTED YELLING TO ALL THE STAFF, INSULTING THE DOCTORS, AND WAS JUST VERBALLY ABUSIVE. SECURITY PRESENT.
[2018-10-08 09:58] LABS: THYROID STIMULATING HORMONE 1.16 uIU/mL (0.358-3.74)
[2018-10-08] MEDS ORDERED: VANCOMYCIN 1 GM in IV D5W 250 ML IV SCH (10:00)
--- NOTE | 2018-10-08 10:00 | NUR ---
RN NOTES PATIENT IN THE ROOM, OFFERED TO CHANGE DRESSING ON WOUND, BUT PATIENT REFUSED. INFORMED PATIENT HE'S DISCHARGE AND PICC LINE NEED TO BE REMOVED, BUT PATIENT VERBALIZED "I CAME IN WITH IT, AND IM LEAVING WITH IT." EXPLAINED RISKS OF HAVING A PICC LINE BUT PATIENT STILL REFUSED TO HAVE IT REMOVED. PATIENT REFUSES ALL DISCHARGE PAPERWORKS, GIVEN A TAP CARD. PATIENT TRYING TO GATHER THE BELONGINGS. REFUSING TO SIGN ANY PAPERWORK.
--- NOTE | 2018-10-08 10:21 | NUR ---
TEST LEAD APPLICATION TESTING PATIENT LEFT IN STABLE CONDITION WITH ALL HIS BELONGINGS, REFUSED TO SIGN ANY DISCHARGE PAPERWORKS. PATIENT REFUSED TO WAIT FOR EXIT CARE INSTRUCTIONS. REFUSED SKIN ASSESSMENT AND WOUND TREATMENTS. CHARGE NURSE AND DR. MARTÍNEZ AWARE PATIENT REFUSED TO HAVE PICC LINE REMOVED. PATIENT ASSISTED TO THE LOBBY.
[2018-10-08 10:57] LABS: EOSINOPHILS % (MANUAL) 10 % (0-4); LYMPHOCYTES % (MANUAL) 31 % (16-48); MONOCYTES % (MANUAL) 7 % (0-11.0); NEUTROPHILS % (MANUAL) 52 (42-76)
[2018-10-08] MEDS ORDERED: PIPERACILLIN /TAZOBACTAM 3.375 G in IV D5W 100 ML IV SCH (12:00)
== END 2018-10-08 10:28 | disposition left against medical advice (07) | DRG 344 ==
LOC: ER 16:34 → EDBD 20:59 → MED 20:59
PROVIDERS: ADMIT Family Medicine; ATTEND Hospitalist
DX: M86.8X7 Other osteomyelitis, ankle and foot (principal); L89.159 Pressure ulcer of sacral region, unspecified stage; D68.59 Other primary thrombophilia; G82.20 Paraplegia, unspecified; E44.0 Moderate protein-calorie malnutrition; E88.09 Other disorders of plasma-protein metabolism, not elsewhere classified; S24.102S Unspecified injury at T2-T6 level of thoracic spinal cord, sequela; W34.00XS Accidental discharge from unspecified firearms or gun, sequela; D50.9 Iron deficiency anemia, unspecified; D63.8 Anemia in other chronic diseases classified elsewhere; F17.210 Nicotine dependence, cigarettes, uncomplicated; Z59.0 Homelessness; Z91.14 Patient's other noncompliance with medication regimen; Z93.3 Colostomy status; Z86.718 Personal history of other venous thrombosis and embolism; Z76.5 Malingerer [conscious simulation]; Z79.01 Long term (current) use of anticoagulants; Z68.21 Body mass index [BMI] 21.0-21.9, adult
CPT/HCPCS: 36415; 71045-TC; 80048-TC; 80061-TC; 80076-TC; 83605-TC; 83735-TC; 84100-TC; 84443-TC; 85025-TC; 85730-TC; 87040-TC; A4217; A6253; A6402; A6403; G0378; J1170; J1200; J1885; J2405; J2543; J3370; J7030; J7060

== ENCOUNTER 2018-10-11 15:11 | Emergency (ER) | payer MEDICARE, MEDICAID ==
[~2018-10-11] VITALS: Ht 137.2 cm; Wt 68.0 kg
[2018-10-11 16:06] VITALS: BP 125/78
--- NOTE | 2018-10-11 16:06 | NUR ---
PT BIBSELF FOR LEFT HEEL WOUND; PT AAOX4, PT ON MONITOR, VSS, NAD NOTED, PENDING ER PROVIDER EVAL.
--- NOTE | 2018-10-11 16:39 | NUR ---
CALLED [facility] FOR PANEL
[2018-10-11] MEDS ORDERED: ONDANSETRON HCL/PF 4 MG/2 ML VIAL ONE (16:43)
[2018-10-11] MEDS ORDERED: diphenhydrAMINE HCL 50 MG/ML VIAL ONE (16:43)
[2018-10-11] MEDS: ONDANSETRON HCL/PF 4 MG/2 ML VIAL IV ONE (17:31)
[2018-10-11] MEDS: diphenhydrAMINE HCL 50 MG/ML VIAL IV ONE (17:31)
--- NOTE | 2018-10-11 17:49 | NUR ---
CALLING [facility] REGARDING ADMISSION
[2018-10-11 18:30] LABS: BASOPHILS % (AUTO) 0.5 % (0.0-2.0); EOSINOPHILS % (AUTO) 4.1 % (0.0-6.0); HEMATOCRIT 31 % (39-51); HEMOGLOBIN 9.3 g/dL (13.5-17.5); LYMPHOCYTES # (AUTO) 0.9 /CMM (0.8-4.8); LYMPHOCYTES % (AUTO) 14.8 % (20.0-44.0); MEAN CORPUSCULAR HGB CONC 30 g/dl (31.0-36.0); MEAN CORPUSCULAR VOLUME 67 fL (80-96); MONOCYTES # (AUTO) 0.8 /CMM (0.1-1.30); MONOCYTES % (AUTO) 12.8 % (2.0-12.0); NEUTROPHILS # (AUTO) 4.1 /CMM (1.8-8.9); NEUTROPHILS % (AUTO) 67.8 % (43.0-81.0); PLATELET COUNT (AUTO) 329 /CMM (150-450); RED BLOOD CELL COUNT(AUTO) 4.61 MIL/uL (4.5-6.0); WHITE BLOOD COUNT (AUTO) 6.1 K/uL (4.3-11.0)
[2018-10-11 18:38] LABS: CALCIUM, SERUM 9.1 mg/dL (8.5-10.1); CREATININE 0.4 mg/dL (0.6-1.3); POTASSIUM 3.8 mmol/L (3.5-5.1)
[2018-10-11 18:44] LABS: ALBUMIN 2.3 g/dL (3.4-5.0); BILIRUBIN,TOTAL 0.1 mg/dL (0.2-1.0); TOTAL PROTEIN, SERUM 7.6 g/dL (6.4-8.2)
[2018-10-11 19:15] LABS: EOSINOPHILS % (MANUAL) 3 % (0-4); LYMPHOCYTES % (MANUAL) 20 % (16-48); MONOCYTES % (MANUAL) 9 % (0-11.0); NEUTROPHILS % (MANUAL) 68 (42-76)
--- NOTE | 2018-10-12 | NUR ---
WOUND DRESSING CHANGED. CHANGED PT UROSTOMY AND COLOSTOMY
--- NOTE | 2018-10-12 00:34 | NUR ---
PT SIGNED ALL DISCHARGE PAPERWORKS, OFFERED HOMELESS RESOURCES, PT DECLINED, PT AGREES FOR A BUS PASS AND CLOTHING.
--- NOTE | 2018-10-12 00:36 | NUR ---
PT REQUESTING FOR A MEAL AND JUICE, PT PROVIDED WITH SANDWICH AND DRINKS
--- NOTE | 2018-10-12 06:54 | NUR ---
PT D/C IN STABLE CONDITION, VSS, NAD NOTED.
== END 2018-10-12 06:56 | disposition home or self-care (01) ==
LOC: ER 15:14
DX: L97.429 Non-pressure chronic ulcer of left heel and midfoot with unspecified severity (principal); R46.89 Other symptoms and signs involving appearance and behavior; Z88.5 Allergy status to narcotic agent; Z93.3 Colostomy status; Z88.8 Allergy status to other drugs, medicaments and biological substances
CPT/HCPCS: 36415; 73620-TC; 80053-TC; 85025-TC; 85652-TC; 86140-TC; 87040-TC; 87070-TC; 87186-TC; A6253; A6402; A6403; J1200; J2405

== ENCOUNTER 2018-10-15 03:22 | Emergency (ER) | payer MEDICARE, MEDICAID ==
[~2018-10-15] VITALS: Ht 160 cm; Wt 51.7 kg
--- NOTE | 2018-10-15 03:30 | NUR ---
PT OUMAR COMPLAINING OF CHRONIC L LEG PAIN AND OSTEOMYLITIS SINCE WHEN HE WAS SHOT IN THE LEG. PT IS AXO4. RESPIRATIONS EVEN AND UNLABORED. PT IS VERBALLY AGGRESSIVE TOWARDS HOSPITAL STAFF.
--- NOTE | 2018-10-15 04:42 | NUR ---
PT RESTING IN BED, UNCOOPERATIVE WITH STAFF.
--- NOTE | 2018-10-15 07:21 | NUR ---
REPORT GIVEN TO KISHOR COE FOR BHARAT.
--- NOTE | 2018-10-15 10:20 | NUR ---
spoke with nursing sup, per Aric, will contact [employer] CYBER OPERATOR for approval for wheelchair.
--- NOTE | 2018-10-15 10:49 | NUR ---
nursing sup called with approval for wheelchair per Jennifer CONTINUOUS IMPROVEMENT MANAGER JI.
[2018-10-15 11:44] VITALS: BP 125/81
--- NOTE | 2018-10-15 11:44 | NUR ---
Patient discharged in stable condition. Written and verbal after care instructions given. Patient verbalizes understanding of instruction. given homeless protocol. case supervisor dante spoke to the patient. wheelchair provided and food. in no apparent distress noted.
--- NOTE | 2018-10-15 11:45 | NUR ---
patient verbalized that he is the one whose gonna arrange his placement. tap card provided.
== END 2018-10-15 11:44 | disposition home or self-care (01) ==
LOC: ER 03:38
DX: L97.429 Non-pressure chronic ulcer of left heel and midfoot with unspecified severity (principal); F17.200 Nicotine dependence, unspecified, uncomplicated; Z93.3 Colostomy status; Z88.5 Allergy status to narcotic agent; Z88.1 Allergy status to other antibiotic agents
CPT/HCPCS: A6402

== ENCOUNTER 2018-10-22 00:09 | Emergency (ER) | payer MEDICARE, MEDICAID ==
[~2018-10-22] VITALS: Ht 165.1 cm; Wt 65.8 kg
[2018-10-22 00:16] VITALS: BP 114/67
--- NOTE | 2018-10-22 01:35 | NUR ---
[id number] FROM [place] C/O COLOSTOMY BAG "LEAKING". PATIENT VERBALLY ABUSIVE TOWARDS TRIAGE NURSE AND STAFF MEMBERS. PT IS AAOX4. NO S/S OF ACUTE DISTRESS NOTED. RR EVEN AND UNLABORED. PT PLACED ON PROTECTIVE SERVICES CASE WORKER AND POX. PT SAFETY AND COMFORT MEASURES IN PLACE. WILL CONTINUE TO MONITOR
[2018-10-22 01:53] LABS: BASOPHILS % (AUTO) 0.2 % (0.0-2.0); HEMATOCRIT 29 % (39-51); LYMPHOCYTES % (AUTO) 17.5 % (20.0-44.0); MEAN CORPUSCULAR HGB CONC 31 g/dl (31.0-36.0); MEAN CORPUSCULAR VOLUME 64 fL (80-96); MONOCYTES # (AUTO) 1.3 /CMM (0.1-1.30); MONOCYTES % (AUTO) 21.3 % (2.0-12.0); NEUTROPHILS # (AUTO) 3.4 /CMM (1.8-8.9); PLATELET COUNT (AUTO) 474 /CMM (150-450); RED BLOOD CELL COUNT(AUTO) 4.49 MIL/uL (4.5-6.0); WHITE BLOOD COUNT (AUTO) 5.9 K/uL (4.3-11.0)
[2018-10-22] MEDS ORDERED: IV NS 0.9% 1,000 ML BAG IV ONE (02:00)
[2018-10-22 02:05] LABS: CALCIUM, SERUM 8.9 mg/dL (8.5-10.1); CREATININE 0.6 mg/dL (0.6-1.3); POTASSIUM 3.9 mmol/L (3.5-5.1)
[2018-10-22 02:12] LABS: ALBUMIN 2.1 g/dL (3.4-5.0); BILIRUBIN,DIRECT 0.1 mg/dL (0.0-0.2); BILIRUBIN,TOTAL 0.2 mg/dL (0.2-1.0); TOTAL PROTEIN, SERUM 8.1 g/dL (6.4-8.2)
[2018-10-22 02:27] LABS: BAND % (MANUAL) 1 % (0.0-5.0); EOSINOPHILS % (MANUAL) 1 % (0-4); LYMPHOCYTES % (MANUAL) 16 % (16-48); MONOCYTES % (MANUAL) 15 % (0-11.0); NEUTROPHILS % (MANUAL) 67 (42-76)
--- NOTE | 2018-10-22 02:30 | NUR ---
PT REFUSED IV AND MEDICATION CURSING AND YELLING AT STAFF TO "LEAVE ME ALONE". MADE AWARE
--- NOTE | 2018-10-22 03:42 | NUR ---
BALJEET CALLED TO READ RADIOLOGY REPORT, BUT WAS INFORMED THAT PT REFUSED XRAY
--- NOTE | 2018-10-22 03:52 | NUR ---
Patient is resting comfortably in bed with eyes closed. Easily aroused. VSS
--- NOTE | 2018-10-22 04:07 | NUR ---
PT YELLING AND CURSING STATING "YOU HALLIEAS NEED TO JUST GIVE ME MY COLOSTOMY BAG SO I CAN GET THE FUCK OUT OF HERE".
--- NOTE | 2018-10-22 05:19 | NUR ---
PT ON HIS PERSONAL WHEELCHAIR BY NURSES STATION MAKING THREATS AND THROWING FISTS AT STAFF STATING "ID BEAT YO ASS". SECURITY WAS CALLED. PT WHEELED HIMSELF BACK TO HIS ROOM.
--- NOTE | 2018-10-22 05:42 | NUR ---
PT BEING VERBALLY ABUSIVE TOWARDS EVS STAFF CALLING STAFF MEMBERS "FAT FUCKS".
--- NOTE | 2018-10-22 06:06 | NUR ---
PER MD, PT HAS NO PRESENTING EMERGENT MEDICAL ISSUE. PT REFUSED HELP, PT REFUSED REPEATER OPERATOR. ALL ATTEMPTS WERE MADE TO ASSIST PATIENT AND CALM PT DOWN. PT REMAINED HOSTILE TOWARDS STAFF MEMBERS AND BEING VERBALLY ABUSIVE.
--- NOTE | 2018-10-22 06:15 | NUR ---
WEATHER APROPRIATE CLOTHING PROVIDED TO PT. FOOD AND JUICE PROVIDED TO PT. COLOSTOMY BAGS AND WOUND CARE SUPPLIES PROVIDED. RESOURCES FOR SHELTERS AND HOMELESS PT'S PROVIDED TO PT.
--- NOTE | 2018-10-22 06:19 | NUR ---
PT ASSISTED OUT OF ED BY SECURITY D/T VERBALLY ABUSIVE BEHAVIOR. AWARE
== END 2018-10-22 06:42 | disposition home or self-care (01) ==
LOC: ER 00:13
DX: L97.429 Non-pressure chronic ulcer of left heel and midfoot with unspecified severity (principal); F17.200 Nicotine dependence, unspecified, uncomplicated; Z99.3 Dependence on wheelchair; Z93.3 Colostomy status; Z88.9 Allergy status to unspecified drugs, medicaments and biological substances; Z88.5 Allergy status to narcotic agent
CPT/HCPCS: 36415; 80048; 80076; 85025; 85652; 85730; 86140; 99283; A4606; A6402

== ENCOUNTER 2018-10-23 03:20 | Emergency (ER) | payer MEDICARE, MEDICAID ==
[~2018-10-23] VITALS: Ht 165.1 cm; Wt 65.8 kg
[2018-10-23 03:23] VITALS: BP 142/64
--- NOTE | 2018-10-23 03:48 | NUR ---
MD AT BEDSIDE FOR EVALUATION
--- NOTE | 2018-10-23 03:48 | NUR ---
PT BIBRA COMPLAINING OF LEFT FOOT PAIN. PT AAOX4. RESPIRATIONS EVEN AND UNLABORED. VITAL SIGNS STABLE. NO ACUTE DISTRESS NOTED AT THIS TIME. PT VERY AGGRESSIVE AND VERBALLY ABUSIVE AND INAPPROPRIATE TO ALL STAFF MEMBERS. SECURITY AND MD AT BEDSIDE
--- NOTE | 2018-10-23 03:50 | NUR ---
PATIENT GIVEN A WHEELCHAIR PER ALEXSANDRA, NURSING HAT MAKER.
== END 2018-10-23 04:10 | disposition home or self-care (01) ==
LOC: ER 03:28
DX: M86.672 Other chronic osteomyelitis, left ankle and foot (principal); L97.428 Non-pressure chronic ulcer of left heel and midfoot with other specified severity; R45.6 Violent behavior; G82.20 Paraplegia, unspecified; F17.200 Nicotine dependence, unspecified, uncomplicated; Z99.3 Dependence on wheelchair; Z93.3 Colostomy status; Z88.5 Allergy status to narcotic agent; Z88.9 Allergy status to unspecified drugs, medicaments and biological substances; Z91.19 Patient's noncompliance with other medical treatment and regimen; Z76.5 Malingerer [conscious simulation]
CPT/HCPCS: 99283; A4606

== ENCOUNTER 2018-12-17 01:25 | Emergency (ER) | payer MEDICARE, MEDICAID ==
[~2018-12-17] VITALS: Ht 149.9 cm; Wt 62.1 kg
--- NOTE | 2018-12-17 01:40 | NUR ---
BIB RA FROM [place]. C/O LEFT FOOT PAIN. PT IS AAOX4. NAD. BREATHING EVEN AND UNLABORED. PT IS VERBALLY ABUSIVE TO STAFF AND OTHER PATIENT. AWAITING MD FOR EVAL.
--- NOTE | 2018-12-17 01:51 | NUR ---
MD AT BEDSIDE. REFUSED CARE. PT AGITATED AND BELLIGERENT, THREW CRACKERS AT THE MD.
--- NOTE | 2018-12-17 03:47 | NUR ---
PT REFUSED TO HAVE HIS DRESSING CHANGED. PT PROVIDED WITH COLOSTOMY WHICH PT PUT ON BY HIMSELF WELL DRESSING FOR HIS WOUND. PROVIDED WITH FOOD AND PANTS. PT REFUSED TO SIGN HOMELESS D/C WAIVER. ESCORTED BY SECURITY. PT HAVE ALL HIS BELONGINGS WITH HIM.
[2018-12-17 03:50] VITALS: BP 127/83
== END 2018-12-17 03:50 | disposition home or self-care (01) ==
LOC: ER 01:28
DX: R45.6 Violent behavior (principal); L97.429 Non-pressure chronic ulcer of left heel and midfoot with unspecified severity; G82.20 Paraplegia, unspecified; F17.200 Nicotine dependence, unspecified, uncomplicated; R45.1 Restlessness and agitation; R00.0 Tachycardia, unspecified; Z91.19 Patient's noncompliance with other medical treatment and regimen; Z99.3 Dependence on wheelchair; Z93.3 Colostomy status; Z88.9 Allergy status to unspecified drugs, medicaments and biological substances; Z88.5 Allergy status to narcotic agent

== ENCOUNTER 2019-03-18 19:11 | Emergency (ER) | payer MEDICARE, MEDICAID ==
--- NOTE | 2019-03-18 19:24 | NUR ---
PATIENT CALLED, NOT IN THE WAITING ROOM.
== END 2019-03-18 19:38 | disposition left against medical advice (07) ==
LOC: ER 19:11
DX: Z53.21 Procedure and treatment not carried out due to patient leaving prior to being seen by health care provider (principal)

== ENCOUNTER 2019-03-18 20:23 | Emergency (ER) | payer MEDICARE, MEDICAID | END 2019-03-18 21:19 | disposition home or self-care (01) | LOC: ER 20:23 | DX: L89.154 Pressure ulcer of sacral region, stage 4 (principal); M86.672 Other chronic osteomyelitis, left ankle and foot; M86.671 Other chronic osteomyelitis, right ankle and foot; R60.0 Localized edema; G82.20 Paraplegia, unspecified; F17.200 Nicotine dependence, unspecified, uncomplicated; Z93.3 Colostomy status; Z88.5 Allergy status to narcotic agent; Z91.19 Patient's noncompliance with other medical treatment and regimen; Z88.9 Allergy status to unspecified drugs, medicaments and biological substances | CPT/HCPCS: 99281; A4362 ==

== ENCOUNTER 2019-04-23 10:55 | Emergency (ER) | payer MEDICARE, MEDICAID ==
[~2019-04-23] VITALS: Ht 152.4 cm; Wt 49.9 kg
[2019-04-23 11:19] VITALS: BP 121/71
--- NOTE | 2019-04-23 11:25 | NUR ---
DR ANDRADE AT BEDSIDE FOR EVAL.
[2019-04-23] MEDS ORDERED: HYDROMORPHONE 1 MG/1 ML DISP.SYRIN IV ONE (11:30)
[2019-04-23] MEDS ORDERED: diphenhydrAMINE HCL 50 MG/ML VIAL IV ONE (11:30)
--- NOTE | 2019-04-23 11:32 | NUR ---
RADIOLOGY AT BEDSIDE FOR L FOOT XRAY.
[2019-04-23] MEDS ORDERED: diphenhydrAMINE HCL 50 MG/ML VIAL ONE (11:34)
[2019-04-23] MEDS ORDERED: HYDROMORPHONE 1 MG/1 ML DISP.SYRIN ONE (11:34)
--- NOTE | 2019-04-23 12:58 | NUR ---
WOUND AND COLOSTOMY CARE PROVIDED. PROVIDED W/ MEAL AND TAP CARD. PT REFUSED HOMELESS [facility] REFFERALS. D/C IN STABLE CONDITION.
== END 2019-04-23 13:02 | disposition home or self-care (01) ==
LOC: ER 10:55
DX: L97.429 Non-pressure chronic ulcer of left heel and midfoot with unspecified severity (principal); M86.672 Other chronic osteomyelitis, left ankle and foot; F17.200 Nicotine dependence, unspecified, uncomplicated; Z99.3 Dependence on wheelchair; Z93.3 Colostomy status; Z88.9 Allergy status to unspecified drugs, medicaments and biological substances; Z88.5 Allergy status to narcotic agent
CPT/HCPCS: 73630; 96374; 96375; 99283; J1170; J1200

== ENCOUNTER 2019-05-21 00:30 | Emergency (ER) | payer MEDICARE, MEDICAID ==
[~2019-05-21] VITALS: Ht 157.5 cm; Wt 63.5 kg
--- NOTE | 2019-05-21 00:40 | NUR ---
PT OUMAR FROM STREET C/O BILATERAL FOOT PAIN. PT AAOX4. VERBALLY AGGRESSIVE TOWARDS STAFF ON ARRIVAL. REFUSED VITAL SIGNS. NO ACUTE DISTRESS NOTED. WILL CONT TO MONITOR
--- NOTE | 2019-05-21 02:00 | NUR ---
RADIOLOGY AT BEDSIDE FOR XRAY
--- NOTE | 2019-05-21 03:13 | NUR ---
RADIOLOGY AT BEDSIDE FOR REPEAT XRAY
--- NOTE | 2019-05-21 05:00 | NUR ---
WOUND CARE PROVIDED TO PT. CHANGED CHOLOSTOMY BAG. OFFERED PT FOOD, WATER, AND CLOTHES. PT REFUSED HOMELESS RESOURCES.
--- NOTE | 2019-05-21 06:06 | NUR ---
PT MEDICALLY CLEARED FOR DISCHARGE. OFFERED PT TAXI VOUCHER, PT REFUSED. PROVIDED PT WITH WHEELCHAIR. PT BECAME VERBALLY AGGRESSIVE AND DEMANDING ON DISCHARGE. ARM BAND REMOVED. Patient given written and verbal discharge instructions. Patient verbalizes understanding of instructions. Refused after care instructions. Refuses offer of senior care placement. Patient refused list of available shelters in surrounding area.
[2019-05-21 06:09] VITALS: BP 137/84
== END 2019-05-21 06:16 | disposition home or self-care (01) ==
LOC: ER 00:31
DX: M86.672 Other chronic osteomyelitis, left ankle and foot (principal); M86.671 Other chronic osteomyelitis, right ankle and foot; F17.200 Nicotine dependence, unspecified, uncomplicated; Z93.3 Colostomy status; Z88.9 Allergy status to unspecified drugs, medicaments and biological substances; Z88.5 Allergy status to narcotic agent
CPT/HCPCS: 73630 ×3; 99283; A6253

== ENCOUNTER 2019-06-15 01:30 | Inpatient (IN) | payer MEDICARE, MEDICAID ==
[~2019-06-15] VITALS: Ht 157.5 cm; Wt 59.9 kg
--- NOTE | 2019-06-15 01:42 | NUR ---
PT BIB EMS C/O BACK PAIN, "I WANT MY FOOT DRESSING REWRAPPED, MY UROSTOMY IS LEAKING". PT HAS UROSTOMY AND COLOSTOMY. PT NOT AMBULATORY. NAD NOTED. RESP EVEN AND UNLABORED. PT IN BED 6 ON MONITOR. WILL CONTINUE TO MONITOR.
--- NOTE | 2019-06-15 02:08 | NUR ---
IV LINE ESTABLISHED, BLOOD DRAWN AND SENT TO LAB.
[2019-06-15 02:16] LABS: BASOPHILS # (AUTO) 0.1 /CMM (0.0-0.2); BASOPHILS % (AUTO) 1.5 % (0.0-2.0); EOSINOPHILS % (AUTO) 3.6 % (0.0-6.0); HEMATOCRIT 35 % (39-51); HEMOGLOBIN 11.1 g/dL (13.5-17.5); LYMPHOCYTES # (AUTO) 0.8 /CMM (0.8-4.8); LYMPHOCYTES % (AUTO) 12.9 % (20.0-44.0); MEAN CORPUSCULAR HGB CONC 31 g/dl (31.0-36.0); MEAN CORPUSCULAR VOLUME 66 fL (80-96); MONOCYTES # (AUTO) 0.6 /CMM (0.1-1.30); MONOCYTES % (AUTO) 9.9 % (2.0-12.0); NEUTROPHILS # (AUTO) 4.4 /CMM (1.8-8.9); NEUTROPHILS % (AUTO) 72.1 % (43.0-81.0); PLATELET COUNT (AUTO) 345 /CMM (150-450); RED BLOOD CELL COUNT(AUTO) 5.37 MIL/uL (4.5-6.0)
[2019-06-15 02:30] LABS: ALANINE AMINOTRANSFERASE 23 U/L (12-78); ALBUMIN 3.2 g/dL (3.4-5.0); ALKALINE PHOSPHATASE 96 U/L (46-116); ASPARTATE AMINOTRANSFERASE 15 U/L (15-37); BILIRUBIN,DIRECT 0.1 mg/dL (0.0-0.2); BILIRUBIN,TOTAL 0.4 mg/dL (0.2-1.0); CALCIUM, SERUM 9.2 mg/dL (8.5-10.1); CARBON DIOXIDE 25 mmol/L (21-32); CHLORIDE 102 mmol/L (98-107); CREATININE 0.6 mg/dL (0.6-1.3); GLUCOSE 77 mg/dL (74-106); POTASSIUM 3.6 mmol/L (3.5-5.1); SODIUM SERUM 138 mmol/L (136-145); UREA NITROGEN, BLOOD 14 mg/dL (7-18)
--- NOTE | 2019-06-15 04:00 | NUR ---
REPORT GIVEN TO 3W NURSE.
[2019-06-15] MEDS ORDERED: ACETAMINOPHEN 325 MG TABLET PO PRN (04:30)
[2019-06-15] MEDS ORDERED: HYDROCODONE/APAP 5/325MG 1 EACH TABLET PO PRN (04:30)
[2019-06-15] MEDS ORDERED: Z GUARD REMEDY 2 OZ OINT TP PRN (04:30)
[2019-06-15] MEDS ORDERED: ZOLPIDEM TARTRATE 5 MG TABLET PO PRN (04:30)
[2019-06-15] MEDS ORDERED: ONDANSETRON HCL/PF 4 MG/2 ML VIAL IVP PRN (04:30)
[2019-06-15] MEDS ORDERED: PIPERACILLIN /TAZOBACTAM 3.375 G in IV D5W 50 ML IV SCH (05:00)
[2019-06-15 05:02] VITALS: BP 131/77
--- NOTE | 2019-06-15 05:30 | NUR ---
MS BARKEEP NOTES PATIENT CAME FROM ER VIA GURNEY ACCOMPANIED BY 2 ER STAFF. PATIENT IS ALERT, ORIENTED X 4. BREATHING EVEN AND UNLABORED. NOT IN ANY DISTRESS. PATIENT REFUSED ASSESSMENT. PER PATIENT," DON'T TOUCH ME". PATIENT IS SCREAMING AND CURSING AT STAFF, REGARDLESS OF THE PRESENCE OF SECURITY. HE ALSO REFUSED WOUND ASSESSMENT AND PICTURES TO BE TAKEN. PATIENT ALSO REFUSED IV ZOSYN. PER PATIENT, "I DON'T WANT ANYTHING EXCEPT MY PAIN SHOT AND BENADRYL." DR. SCHUMACHER MADE AWARE. PATIENT ALSO REFUSED TO ANSWER ADMISSION QUESTIONS. HE ASKED FOR A PAIR OF SCISSORS TO CUT HIS COLOSTOMY BAG AND WHEN I TOLD HIM I NEED TO GET THE SCISSORS BACK, HE THREW IT AT ME. PATIENT ALSO REFUSED HIS BELONGINGS TO BE CHECKED BY RN AND JOSE F GAFFNEY. WILL ENDORSE BHARAT TO ONCOMING CAROLIN
[2019-06-15] MEDS ORDERED: PIPERACILLIN /TAZOBACTAM 3.375 G VIAL IV ONE (05:49)
--- NOTE | 2019-06-15 06:35 | NUR ---
RN NOTES T/O RECEIVED FROM DR. SCHUMACHER OF DILAUDID 1MG IV Q6H PRN AND BENADRYL 50MG IV Q6H PRN. NOTED AND CARRIED OUT
[2019-06-15] MEDS: HYDROMORPHONE 1 MG/1 ML DISP.SYRIN IV PRN ×2 (06:55→12:55)
[2019-06-15] MEDS: diphenhydrAMINE HCL 50 MG/ML VIAL IV PRN ×2 (07:03→13:04)
[2019-06-15] MEDS ORDERED: PANTOPRAZOLE 40 MG TABLET.DR PO SCH (07:30)
--- NOTE | 2019-06-15 07:31 | NUR ---
MS RN CLOSING NOTES PATIENT AWAKE, ON WHEELCHAIR AT THE DOOR OF HIS ROOM. PATIENT REFUSED NURSING ASSESSMENT. NO COMPLAINTS MADE AT THIS TIME. ENDORSED.
--- NOTE | 2019-06-15 07:32 | NUR ---
RN OPENING NOTES RECEIVED PATIENT AT HALLWAY SITTING ON WHEELCHAIR, TALKING TO HIMSELF. INSTRUCTED PATIENT TO GO INSIDE HIS ROOM BUT PATIENT VERY UNCOOPERATIVE AND STARTED CURSING AT STAFF, GAVE HIM SPACE AND HE STARTED TO CALM DOWN. NOT IN ANY FORM OF DISTRESS, NO SOB. DENIED ANY PAIN OR DISCOMFORT. IV ACCESS INTACT AND PATENT. KEPT PATIENT SAFE AND COMFORTABLE. WILL MONOITOR ACCORDINGLY
--- NOTE | 2019-06-15 07:45 | NUR ---
RN NOTES REFUSED VITAL SIGNS, STARTED CURSING TO CONTACT REPRESENTATIVE. SAYING "GET THE F##CK OFF ME MAN!" EXPLAINED RISK AND BENEFITS BUT STILL REFUSED. STARTED CURSING AGAIN AND WENT INSIDE THE ROOM.
[2019-06-15] MEDS ORDERED: FEE PK DOSING 1 MIN EA MC ONE (08:00)
--- NOTE | 2019-06-15 08:00 | NUR ---
RN NOTES REFUSED SKIN ASSESSMENT AND BODY CHECK. SAYING "DONT YOU TOUCH ME MAN!". EXPLAINED POLICY BUT STILL REFUSED. PATIENT IS HOSTILE, CURSING. ALSO REFUSED BELONGINGS CHECK.
[2019-06-15] MEDS: DIVALPROEX SODIUM 250 MG TABLET.DR PO SCH ×3 (08:59→17:00)
[2019-06-15] MEDS: DOCUSATE SODIUM 100 MG CAPSULE PO SCH ×2 (08:59→17:00)
--- NOTE | 2019-06-15 09:08 | NUR ---
REFUSED AM MEDICATIONS. EXPLAIN RISK AND BENEFITS BUT STILL REFUSED. PATIENT STATED "I DONT WANA TAKE THAT SHIT!".
--- NOTE | 2019-06-15 09:15 | NUR ---
RN NOTES PATIENTS ASK FOR HI DILAUDID PAIN MEDICATIONS. TOLD PATIENT THAT ITS NOT DUE YET. INFORMED PATIENT THAT ITS EVERY 6HR. OFFERED NORCO 5 BUT PATIENT REFUSED. STATED" IM NOT A PILL POPPER!". PATIENT ONLY WANTED DILAUDID, PATIENT REQUESTED TO CHANGE FREQUENCY TO EVERY 4 HRS. NOTIFIED.
--- NOTE | 2019-06-15 09:30 | NUR ---
RN NOTES PATIENT WAS TAKING HIS LEFT FOOT DRESSING OFF IN THE HALLWAY. INSTRUCTED THE PATIENT TO GO INTO HIS ROOM AND NURSE WILL ASSIST HIM TO CHANGE THE DRESSING. PATIENT STARTED CURSING AND GOT MAD BECAUSE HE WANTED TO GET HIS PAIN MEDS(DILAUDID). TOLD PATIENT THAT DOCTOR WAS INFORMED ALREADY ABOUT HIS PAIN MEDS. PATIENT WONT STOP TALKING AND KEPT ON CURSING. PATIENT IS VERY UNCOOPERATIVE, AND VERBALLY ABUSIVE CURSING AT STAFF. CAPACITOR PACK PRESS OPERATOR STUDENT HELP WHEELED THE PATIENT INSIDE THE ROOM.
--- NOTE | 2019-06-15 09:40 | NUR ---
RN NOTES ATTEMPTED TO DO WOUND CARE BUT PATIENT WAS AGITATED, HOSTILE, AND CURSING AT STAFF. PATIENT TALKING TO BACK FEEDER PLYWOOD LAYUP LINE STUDENT ABOUT CHANGING THE DILAUDID FREQUENCY. INFORMED PATIENT THAT MD HAS BEEN NOTIFIED. WILL COME BACK WHEN PATIENT IS CALM.
[2019-06-15] MEDS ORDERED: VANCOMYCIN 1 GM in IV D5W 250 ML IV SCH (10:00)
[2019-06-15] MEDS: PIPERACILLIN /TAZOBACTAM 3.375 G in IV D5W 50 ML IV SCH ×3 (12:11→17:32)
[2019-06-15 13:29] LABS: APPEARANCE,URINE CLOUDY (CLEAR); BILIRUBIN,URINE NEGATIVE (NEGATIVE); BLOOD, URINE TRACE-INTA Ery/uL (NEGATIVE); COLOR,URINE YELLOW (YELLOW); KETONES,URINE NEGATIVE (NEGATIVE); NITRITE, URINE POSITIVE (NEGATIVE); PH,URINE 6.5 (5.0-8.0); PROTEIN,URINE NEGATIVE (NEGATIVE); UGLUCOSE NEGATIVE (NEGATIVE); UROBILINOGEN,URINE 0.2 EU/dL (0.2)
[2019-06-15 13:43] LABS: SQUAMOUS EPITHELIAL CELL,UR Few /HPF (None Seen)
[2019-06-15 13:45] LABS: LEUKOCYTE ESTERASE ,URINE 2+ (NEGATIVE)
[2019-06-15 13:46] LABS: BACTERIA,URINE 1+ /HPF (None Seen); MUCUS,URINE Moderate /LPF (None Seen); WBC,URINE 51-80 /HPF (0-3)
--- NOTE | 2019-06-15 17:00 | NUR ---
RN NOTES: REFUSED PM VITAL SIGNS PATIENT REFUSED PM VITAL SIGNS. EXPLAINED RISK AND BENEFITS UT STILL REFUSED.
--- NOTE | 2019-06-15 17:27 | NUR ---
RN NOTES: REFUSED ABX PATIENT REFUSED PM IV ANTIBIOTICS(ZOSYN AND VANCOMYCIN). EXPLAINED RISK AND BENEFITS X3 BUT STILL REFUSED.
[2019-06-15] MEDS: VANCOMYCIN HCL 0.75 GM in IV D5W 250 ML IV SCH (17:32)
--- NOTE | 2019-06-15 18:49 | NUR ---
RN NOTES PER DR MARTÍNEZ, DO NOT ORDER ANY IV PAIN MEDS OR BENADRYL. MD ORDER TO DC IV DILAUDID AND IV BENADRYL. ORDERS NOTED AND CARRIED OUT
--- NOTE | 2019-06-15 19:25 | NUR ---
RN OPENING NOTES RE[facility]ED [facility]. PATIENT IS ALERT, ORIENTED X 4. ABLE TO CLEARLY STATE NEEDS. NO SIGNS AND SYMPTOMS OF RESPIRATORY DISTRESS. DENIES SHORTNESS OF BREATH. RESPIRATIONS EVEN AND UNLABORED WITH EQUAL CHEST RISE AND FALL. IV ACCESS INTACT AND PATENT. PATIENT IS CURRENTLY VERBALLY ABUSIVE, SCREAMING, YELLING PROFANITY, AND CURSING AT STAFF. SAFETY PRECAUTIONS IMPLEMENTED; CALL LIGHT WITHIN REACH, BED LOWEST POSITION, BED LOCKED, BILATERAL UPPER SIDE RAILS UP AND LOCKED. WILL CONTINUE TO MONITOR PATIENT'S CONDITION AND SAFETY THROUGHOUT THE NIGHT.
--- NOTE | 2019-06-15 19:30 | NUR ---
RN CLOSING NOTES PATIENT INSIDE THE HIS ROOM SITTING ON HIS WHEELCHAIR, IN STABLE CONDITION. ALL NEEDS ATTENDED AND PROVIDED. KEPT PATIENT SAFE AND COMFORTABLE. ENDORSED TO NIGHT RN FOR BHARAT..
--- NOTE | 2019-06-15 19:50 | NUR ---
RN NOTES PATIENT REFUSES ANY FORM OF NURSING ASSESSMENT. PATIENT REFUSES SKIN CHECK TO CHECK IV SITE, COLOSTOMY BAG, AND REPORTED WOUNDS. PATIENT STATES "DO NOT TOUCH ME, 'BLOOD'!" EXPLAINED TO PATIENT I NEED TO ASSESS HIS WELLBEING TO MANAGE HIS CARE. PATIENT REFUSES. PATIENT STILL CURSING.
--- NOTE | 2019-06-15 20:01 | NUR ---
RN NOTES PATIENT REFUSED 1999 VITAL SIGNS. PATIENT STATES HE DOES NOT WANT TO BE CHECKED UNLESS I HAVE MY PAIN MEDICATION. EXPLAINED THE RISKS AND BENEFITS X 3 BUT PATIENT INSISTS ON REFUSING. CHARGE NURSE AWARE.
--- NOTE | 2019-06-15 20:10 | NUR ---
RN NOTES I INFORMED PATIENT THAT PAIN MEDICATION DILAUDID AND BENADRYL HAVE BEEN DISCONTINUED BY THE DOCTOR. OFFERED NORCO OR TYLENOL AN ALTERNATIVE BUT PATIENT REFUSES.
--- NOTE | 2019-06-15 21:18 | NUR ---
RN NOTES PER DR. GAMEZ, HE IS AWARE OF PATIENT AND REQUESTS FOR IV PAIN MEDS AND BENADRYL. PER DR. GAMEZ, DO NOT ORDER ANY IV PAIN MEDS OR BENADRYL. PER DR. GARCIA, "DO NOT ASK ME FOR PAIN MEDICATION ORDERS FOR THIS PATIENT." DR. GARCIA IS AWARE.
--- NOTE | 2019-06-16 | NUR ---
RN NOTES PATIENT REFUSED ABX ZOSYN. EXPLAINED THE RISKS AND BENEFITS OF MEDICATIONS X3 BUT PATIENT INSISTS ON REFUSING MEDS.
[2019-06-16] MEDS: VANCOMYCIN HCL 0.75 GM in IV D5W 250 ML IV SCH (02:00)
--- NOTE | 2019-06-16 02:05 | NUR ---
RN NOTES PATIENT REFUSED VANCO. EXPLAINED THE RISKS AND BENEFITS OF MEDICATIONS X3 BUT PATIENT INSISTS ON REFUSING MEDS.
[2019-06-16] MEDS: PIPERACILLIN /TAZOBACTAM 3.375 G in IV D5W 50 ML IV SCH ×3 (05:25)
--- NOTE | 2019-06-16 05:25 | NUR ---
RN NOTES PATIENT REFUSED ABX ZOSYN. EXPLAINED THE RISKS AND BENEFITS OF MEDICATIONS X3 BUT PATIENT INSISTS ON REFUSING MEDS.
--- NOTE | 2019-06-16 06:30 | NUR ---
RN NOTES PATIENT REFUSED LAB DRAWS FOR THE AM.
--- NOTE | 2019-06-16 06:34 | NUR ---
RN CLOSING NOTES PATIENT INSIDE HIS ROOM, ASLEEP, EASILY AROUSABLE TO VOICE AND SOUNDS. PATIENT IN STABLE CONDITION. DURING PATIENT CHECKS, PATIENT INSISTED ON REFUSING ASSESSMENTS AND ANSWERING QUESTIONS. PATIENT CONTINUALLY SAYS "LEAVE ME THE FUCK ALONE, MAN. CLOSE THE DOOR." PATIENT REFUSED NURSING ASSESSMENT AT THIS TIME. ALL NEEDS ATTENDED AND PROVIDED. PATIENT KEPT SAFE AND COMFORTABLE. NO COMPLAINTS MADE AT THIS TIME. WILL ENDORSE TO DAYSKSFT NURSE FOR CONTINUITY OF CARE.
--- NOTE | 2019-06-16 07:35 | NUR ---
RN OPENING NOTES RECEIVED PATIENT IN BED RESTING COMFORTABLY IN MODERATE HIGH BACK REST. A/O X4. NO S/S OF DISTRESS NOTED AT THIS TIME. IV ACCESS ON SHAHID# 20,SL. SAFETY MEASURES IN PLACE, BED IN LOW LOCKED POSITION WITH SIDE RAILS UP X2. CALL LIGHT WITHIN REACH. WILL CONTINUE TO MONITOR.
--- NOTE | 2019-06-16 08:20 | NUR ---
RN NOTES PATIENT VERBALLY AGGRESSIVE, COMBATIVE, UNCOOPERATIVE AND REFUSED ALL NURSING CARE. PATIENT SCREAMING AND STATES THAT " I WANT TO GO AMA BECAUSE YOU ARE ALL USELESS". TRIED TO EXPLAINED RISKS OF GOING AMA BUT PATIENT STILL WANTS TO GO. DR. MARTÍNEZ ON UNIT. SPOKE TO THE PATIENT BUT PATIENT STILL REFUSED AND STILL CONTINUE WITH THE BEHAVIOR MENTIONED. IV ACCESS REMOVED AND APPLIED PRESSURE DRESSING AND NAME ARM BAND REMOVED. PATIENT REFUSED TO SIGNED AMA FORM AND LEFT UNIT VIA WHEELCHAIR ESCORTED BY SECURITY.
== END 2019-06-16 08:30 | disposition left against medical advice (07) | DRG 699 ==
LOC: ER 01:30 → MED 04:18
PROVIDERS: ADMIT Family Medicine; ATTEND Family Medicine
DX: N99.522 Malfunction of incontinent external stoma of urinary tract (principal); M86.672 Other chronic osteomyelitis, left ankle and foot; G82.20 Paraplegia, unspecified; E44.0 Moderate protein-calorie malnutrition; D68.59 Other primary thrombophilia; G89.29 Other chronic pain; Y84.9 Medical procedure, unspecified as the cause of abnormal reaction of the patient, or of later complication, without mention of misadventure at the time of the procedure; Y92.009 Unspecified place in unspecified non-institutional (private) residence as the place of occurrence of the external cause; Z59.0 Homelessness; Z91.19 Patient's noncompliance with other medical treatment and regimen; Z86.718 Personal history of other venous thrombosis and embolism; D63.8 Anemia in other chronic diseases classified elsewhere; E88.09 Other disorders of plasma-protein metabolism, not elsewhere classified; Y83.8 Other surgical procedures as the cause of abnormal reaction of the patient, or of later complication, without mention of misadventure at the time of the procedure; Y82.8 Other medical devices associated with adverse incidents; F17.210 Nicotine dependence, cigarettes, uncomplicated; L89.159 Pressure ulcer of sacral region, unspecified stage; W34.00XS Accidental discharge from unspecified firearms or gun, sequela; Z99.3 Dependence on wheelchair; Z76.5 Malingerer [conscious simulation]
CPT/HCPCS: 36415; 80048-TC; 80076-TC; 80164-TC; 81000-TC; 83605-TC; 84484-TC; 85025-TC; 85730-TC; 87040-TC; 87070-TC; 87081-TC; 87086-TC; 87186-TC; A4362; A6253; A6403; G0378; J1170; J1200; J2543; J3370; J7030; J7060

== ENCOUNTER 2019-07-14 21:15 | Emergency (ER) | payer MEDICARE, MEDICAID ==
[~2019-07-14] VITALS: Ht 157.5 cm; Wt 59.9 kg
[2019-07-14 21:15] VITALS: BP 127/61
[~2019-07-14 21:15] MED LIST changes: -PIPE3.379 IV; -RXVAN XX
--- NOTE | 2019-07-14 21:21 | NUR ---
BIB EMS C/O CHRONIC LLE PAIN. PT AAOX3, VSS. RR EVEN & UNLABORED. DENIES ANY OTHER DISCOMFORT. AWAITING EVAL BY ERMD/PA & WILL CONT TO MONITOR.
--- NOTE | 2019-07-15 01:21 | NUR ---
PT REFUSING TO SIGN DISCHARGE PAPERWORK. PT GIVEN AFTER CARE INSTRUCTIONS VERBALLY.
== END 2019-07-15 06:53 | disposition home or self-care (01) ==
LOC: ER 21:16
DX: M86.672 Other chronic osteomyelitis, left ankle and foot (principal); M86.671 Other chronic osteomyelitis, right ankle and foot; F17.200 Nicotine dependence, unspecified, uncomplicated; Z93.3 Colostomy status; Z79.899 Other long term (current) drug therapy; Z88.8 Allergy status to other drugs, medicaments and biological substances; Z88.5 Allergy status to narcotic agent
CPT/HCPCS: 73630-TC

== ENCOUNTER 2019-08-09 10:59 | Emergency (ER) | payer MEDICARE, MEDICAID ==
[~2019-08-09] VITALS: Ht 157.5 cm; Wt 59.9 kg
[2019-08-09] MEDS ORDERED: diphenhydrAMINE HCL 50 MG/ML VIAL ONE ×2 (11:54→14:03)
[2019-08-09] MEDS ORDERED: diphenhydrAMINE HCL 50 MG/ML VIAL IV ONE ×2 (12:00→14:00)
--- NOTE | 2019-08-09 12:00 | NUR ---
[id number], homeless. c/o back pain, uncooperative, verbally abusive. on room air, breaathing evenly and unlabored. kept comfortable, will cotninue to monitor accordingly.
[2019-08-09 16:34] VITALS: BP 129/71
--- NOTE | 2019-08-09 16:36 | NUR ---
Patient given written and verbal discharge instructions. Patient verbalizes understanding of instructions. Patient is ambulatory with steady gait. Refuses offer of fci placement. Patient given list of available shelters in surrounding area. food provided, tap card, spoke to social service. in no distress.
== END 2019-08-09 16:36 | disposition home or self-care (01) ==
LOC: ER 11:06
DX: Z43.6 Encounter for attention to other artificial openings of urinary tract (principal); F17.200 Nicotine dependence, unspecified, uncomplicated; M86.9 Osteomyelitis, unspecified; Z86.718 Personal history of other venous thrombosis and embolism; Z88.8 Allergy status to other drugs, medicaments and biological substances; Z79.899 Other long term (current) drug therapy
CPT/HCPCS: 96374; 96376; 99283; A6253 ×2; A6403; J1200 ×2

== ENCOUNTER 2019-09-17 22:02 | Emergency (ER) | payer MEDICARE, OTHER, MEDICAID ==
[~2019-09-17] VITALS: Ht 177.8 cm; Wt 68.0 kg
[2019-09-17] MEDS ORDERED: MORPHINE SULFATE INJ 2 MG/ML DISP.SYRIN IV ONE (23:30)
[2019-09-17] MEDS ORDERED: diphenhydrAMINE HCL 50 MG/ML VIAL IV ONE (23:30)
[2019-09-17] MEDS ORDERED: MORPHINE SULFATE INJ 4 MG/ML DISP.SYRIN ONE (23:56)
[2019-09-17] MEDS ORDERED: diphenhydrAMINE HCL 50 MG/ML VIAL ONE (23:56)
[2019-09-18 02:14] VITALS: BP 130/79
--- NOTE | 2019-09-18 06:21 | NUR ---
IV removed. Catheter intact and site benign. Pressure and 4x4 applied to site. No bleeding noted.Patient discharged to home in stable condition. Written and verbal after care instructions given. Patient verbalizes understanding of instruction.
== END 2019-09-18 06:22 | disposition home or self-care (01) ==
LOC: ER 22:03
DX: Z48.01 Encounter for change or removal of surgical wound dressing (principal); Z93.6 Other artificial openings of urinary tract status; F17.200 Nicotine dependence, unspecified, uncomplicated; Z86.718 Personal history of other venous thrombosis and embolism; Z76.5 Malingerer [conscious simulation]; Z93.3 Colostomy status; Z79.899 Other long term (current) drug therapy; Z88.9 Allergy status to unspecified drugs, medicaments and biological substances; Z88.5 Allergy status to narcotic agent
CPT/HCPCS: 96374; 96375; 99283; J1200; J2270

== ENCOUNTER 2019-10-11 03:30 | Emergency (ER) | payer MEDICARE, OTHER ==
[~2019-10-11] VITALS: Ht 177.8 cm; Wt 68.0 kg
[2019-10-11 03:30] VITALS: BP 124/69
--- NOTE | 2019-10-11 05:25 | NUR ---
a complete wound care provided on bilateral feet and buttox pressure sores and colostomy and urostomy bags. pt was provided w/ snacks and new clothing. D/C papers, written and verbal instructions given to the pt, along with a prescription w/ understanding. pt refused the shleter resources.
== END 2019-10-11 05:59 | disposition home or self-care (01) ==
LOC: ER 03:31
DX: L97.429 Non-pressure chronic ulcer of left heel and midfoot with unspecified severity (principal); M86.672 Other chronic osteomyelitis, left ankle and foot; R45.6 Violent behavior; Z76.5 Malingerer [conscious simulation]; F17.200 Nicotine dependence, unspecified, uncomplicated; Z88.8 Allergy status to other drugs, medicaments and biological substances; Z79.899 Other long term (current) drug therapy
CPT/HCPCS: 99283; A4362; A6253 ×3

== ENCOUNTER 2019-11-27 22:27 | Emergency (ER) | payer MEDICARE, OTHER ==
[~2019-11-27] VITALS: Ht 177.8 cm; Wt 65.8 kg
[2019-11-27] MEDS ORDERED: PIPERACILLIN /TAZOBACTAM 3.375 G VIAL IV ONE (23:58)
[2019-11-27] MEDS ORDERED: diphenhydrAMINE HCL 50 MG/ML VIAL ONE (23:58)
[2019-11-28] MEDS ORDERED: diphenhydrAMINE HCL 50 MG/ML VIAL IV ONE
[2019-11-28] MEDS ORDERED: PIPERACILLIN /TAZOBACTAM 3.375 G in IV D5W 50 ML IV ONE ×2
--- NOTE | 2019-11-28 00:19 | NUR ---
PATIENT CAME TO ER BED 15 C/O LEFT FOOT PAIN. PATIENT IS UNCOOPERATIVE AND RUDE TO THE STAFF. AAOX4. NO SOB. BREATHING EVENLY AND UNLABORED ON ROOM AIR.
--- NOTE | 2019-11-28 01:00 | NUR ---
PT PROVIDED WITH SANDWICH AND JUICE PER REQUEST
--- NOTE | 2019-11-28 01:38 | NUR ---
SPOKE WITH NURSE NEGRO FROM [facility] (PER ED REPORT). RECOMMENDED TO DISCHARGE PATIENT AND INPATIENT CARE MANAGER RN WILL FOLLOW UP WITH PATIENT.
--- NOTE | 2019-11-28 02:30 | NUR ---
PT BECOMING VERBALLY AGGRESSIVE TOWARDS STAFF. DEMANDING FOR PAIN MEDICATION AND BENADRYL. AWARE
--- NOTE | 2019-11-28 03:22 | NUR ---
PT PROVIDED WITH SNACKS AND JUICE PER REQUEST
--- NOTE | 2019-11-28 04:41 | NUR ---
PT IS AWAKE. WATCHING TELEVISION. PT STATES, "GET AWAY FROM ME COLLINS MAN". BREATHING EVENLY AND UNLABORED ON ROOM AIR.
--- NOTE | 2019-11-28 11:58 | NUR ---
pt provided w/ new wheelchair and colostomy bag. discharge from ED in stable condition.
--- NOTE | 2019-11-28 12:02 | NUR ---
refused to sign homeless patient waiver, refused aci. left ED ion stable condition.
[2019-11-28 12:04] VITALS: BP 132/70
== END 2019-11-28 12:04 | disposition home or self-care (01) ==
LOC: ER 22:28
DX: L97.929 Non-pressure chronic ulcer of unspecified part of left lower leg with unspecified severity (principal); Z91.19 Patient's noncompliance with other medical treatment and regimen; G82.20 Paraplegia, unspecified; Z76.5 Malingerer [conscious simulation]; Z93.3 Colostomy status; Z88.8 Allergy status to other drugs, medicaments and biological substances; F17.200 Nicotine dependence, unspecified, uncomplicated; Z79.899 Other long term (current) drug therapy
CPT/HCPCS: 96365; 96375; 99284; J1200; J2543 ×2; J7060

== ENCOUNTER 2019-11-28 17:00 | Emergency (ER) | payer MEDICARE, OTHER ==
[~2019-11-28] VITALS: Ht 177.8 cm; Wt 63.5 kg
--- NOTE | 2019-11-28 17:07 | NUR ---
BIB [facility] [address],C/O FOOT PAIN SEEN THIS MORNING FOR SAME COMPLAINT; pt to bed 15, placed on monitor, -sob, vss, pending er provider melo
--- NOTE | 2019-11-28 17:55 | NUR ---
5150 gd hold written by [employer], placed in chart
--- NOTE | 2019-11-28 22:46 | NUR ---
BRUCE WORRELLW PAGED FOR PSYCH EVAL.
--- NOTE | 2019-11-28 23:45 | NUR ---
BRUCE WHITE BOTTLE LABEL INSPECTOR AT BEDSIDE TO ETTA PT. PT CALM AND COOPERATIVE AT THIS TIME.
--- NOTE | 2019-11-29 00:10 | NUR ---
PT CLEARED FOR PSYCH PER ART CINDY WORRELLW.
--- NOTE | 2019-11-29 01:34 | NUR ---
PT RESTING COMFORTABLY, VSS, NO ACUTE DISTRESS NOTED AT THIS TIME. SAFETY PRECAUTIONS BEING IMPLEMENTED
--- NOTE | 2019-11-29 04:22 | NUR ---
Patient is resting comfortably in bed. Easily aroused. VSS.
[2019-11-29 06:35] VITALS: BP 122/85
--- NOTE | 2019-11-29 06:35 | NUR ---
Patient discharged to home in stable condition. Written and verbal after care instructions given. Patient verbalizes understanding of instruction. IV removed. Catheter intact and site benign. Pressure and 4x4 applied to site. No bleeding noted. Pt wheeled out of ED. vss.
== END 2019-11-29 06:36 | disposition home or self-care (01) ==
LOC: ER 17:00
DX: R45.1 Restlessness and agitation (principal); F17.200 Nicotine dependence, unspecified, uncomplicated; Z93.3 Colostomy status; Z88.8 Allergy status to other drugs, medicaments and biological substances; Z79.899 Other long term (current) drug therapy

== ENCOUNTER 2019-12-17 01:17 | Emergency (ER) | payer MEDICARE, MEDICAID ==
[~2019-12-17] VITALS: Ht 177.8 cm; Wt 63.5 kg
[2019-12-17 02:11] VITALS: BP 124/62
--- NOTE | 2019-12-17 02:46 | NUR ---
PATIENT CAME TO ER BED 15 C/O LEFT FOOT PAIN. PATIENT STATES, "HURRY THE HELL UP AND GET MY DRESSING CHANGED". PATIENT IS CURSING AT NURSING STAFF AND EVS STAFF. AAOX4. NO SOB. BREATHING EVENLY AND UNLABORED ON ROOM AIR. PATIENT IS AGITATED AND RUDE.
--- NOTE | 2019-12-17 03:18 | NUR ---
PATIENT'S DRESSING CHANGED ON LEFT LEG.
[2019-12-17] MEDS ORDERED: MORPHINE SULFATE INJ 2 MG/ML DISP.SYRIN IV ONE (04:30)
[2019-12-17] MEDS ORDERED: diphenhydrAMINE HCL 50 MG/ML VIAL IV ONE (04:30)
[2019-12-17] MEDS ORDERED: diphenhydrAMINE HCL 50 MG/ML VIAL ONE (04:51)
[2019-12-17] MEDS ORDERED: MORPHINE SULFATE INJ 4 MG/ML DISP.SYRIN ONE (04:51)
--- NOTE | 2019-12-17 04:57 | NUR ---
PATIENT IS GIVEN CLEAN CLOTHES TO CHANGE INTO.
== END 2019-12-17 06:53 | disposition home or self-care (01) ==
LOC: ER 01:19
DX: Z43.6 Encounter for attention to other artificial openings of urinary tract (principal); Z48.01 Encounter for change or removal of surgical wound dressing; G82.20 Paraplegia, unspecified; Z88.8 Allergy status to other drugs, medicaments and biological substances; Z60.2 Problems related to living alone; Z79.899 Other long term (current) drug therapy
CPT/HCPCS: 96374; 96375; 99284; J1200; J2270

== ENCOUNTER 2020-01-10 01:07 | Emergency (ER) | payer MEDICARE, OTHER ==
[~2020-01-10] VITALS: Ht 157.5 cm; Wt 63.5 kg
[2020-01-10 01:09] VITALS: BP 135/85
--- NOTE | 2020-01-10 02:10 | NUR ---
PATIENT RUDE TO STAFF. USING RACIAL SLURS AGAINST SECURITY STAFF. PATIENT IS GIVEN CLEAN CLOTHES AND FOOD.
--- NOTE | 2020-01-10 02:11 | NUR ---
Patient discharged to home in stable condition. Written and verbal after care instructions given. Patient verbalizes understanding of instruction.
== END 2020-01-10 02:15 | disposition home or self-care (01) ==
LOC: ER 01:08
DX: M86.672 Other chronic osteomyelitis, left ankle and foot (principal); M86.671 Other chronic osteomyelitis, right ankle and foot; F17.200 Nicotine dependence, unspecified, uncomplicated; Z93.3 Colostomy status; Z88.8 Allergy status to other drugs, medicaments and biological substances; Z60.2 Problems related to living alone; Z79.899 Other long term (current) drug therapy

== ENCOUNTER 2020-01-13 13:11 | Emergency (ER) | payer MEDICARE, OTHER ==
[~2020-01-13] VITALS: Ht 157.5 cm; Wt 63.5 kg
--- NOTE | 2020-01-13 13:27 | NUR ---
PT BIB RA WITH A C/O LT HEEL WOUND. PT WANTS PAIN MEDICATION AND HIS LT HEEL WRAPPED. PT IS C/O BEING HUNGRY AND DEMANDING FOOD. PT IS AGGITATED AND VERBALLY AGGRESSIVE. PT LT FOOT IS WEEPING.
--- NOTE | 2020-01-13 13:27 | NUR ---
CALLED DIETARY AND ORDERED A LUNCH TRAY.
--- NOTE | 2020-01-13 13:40 | NUR ---
PT REC'D A LUNCH TRAY.
--- NOTE | 2020-01-13 14:12 | NUR ---
PT IS SINGING AND APPEARS TO BE RESTING COMFORTABLY.
--- NOTE | 2020-01-13 14:16 | NUR ---
DR PNIEDA IS AT THE BEDSIDE.
--- NOTE | 2020-01-13 14:33 | NUR ---
Patient given written and verbal discharge instructions. Patient verbalizes understanding of instructions. Patient is ambulatory with steady gait. Refuses offer of fdc placement. Patient given list of available shelters in surrounding area. PT REC'D SNACKS AND JUICE. PT ALSO REC'D ALL ACI AND RX. PT WAS ASSISTED TO HIS WC. PT REC'D CLOTHES.
--- NOTE | 2020-01-13 14:35 | NUR ---
PT LEFT WITH SECURITY. HOMELESS WAIVER SIGNED.
[2020-01-13 14:37] VITALS: BP 118/75
== END 2020-01-13 14:40 | disposition home or self-care (01) ==
LOC: ER 13:21
DX: G89.29 Other chronic pain (principal); L97.929 Non-pressure chronic ulcer of unspecified part of left lower leg with unspecified severity; L97.919 Non-pressure chronic ulcer of unspecified part of right lower leg with unspecified severity; R60.0 Localized edema; Z93.3 Colostomy status; Z88.8 Allergy status to other drugs, medicaments and biological substances; Z60.2 Problems related to living alone; Z79.899 Other long term (current) drug therapy

== ENCOUNTER 2020-01-25 21:46 | Emergency (ER) | payer MEDICARE, OTHER ==
[~2020-01-25] VITALS: Ht 157.5 cm; Wt 63.5 kg
--- NOTE | 2020-01-25 21:54 | NUR ---
PT OAPIG737 FROM [place] C/O CHRONIC BILATERAL FOOT PAIN. PT AAOX4, RESPIRATIONS EVEN AND UNLABORED ON RA W/ NAD NOTED. PT CONNECTED TO THE MONITOR AND POX.
[2020-01-25] MEDS ORDERED: HYDROCODONE/APAP 5/325MG 1 EACH TABLET PO ONE (22:30)
[2020-01-25] MEDS ORDERED: HYDROCODONE/APAP 5/325MG 1 EACH TABLET ONE (22:38)
--- NOTE | 2020-01-25 23:45 | NUR ---
Patient is resting comfortably in bed with eyes closed. Easily aroused. VSS.
--- NOTE | 2020-01-26 00:24 | NUR ---
Patient is resting comfortably in bed with eyes closed. Easily aroused. VSS
--- NOTE | 2020-01-26 02:33 | NUR ---
PT ASLEEP/ VSS.
--- NOTE | 2020-01-26 02:41 | NUR ---
PT RESTING COMFORTABLY IN BED. VSS. NO ACUTE DISTRESS NOTED.
--- NOTE | 2020-01-26 04:02 | NUR ---
PT ASLEEP. VSS.
--- NOTE | 2020-01-26 06:41 | NUR ---
Patient is resting comfortably in bed. Easily aroused. VSS.
--- NOTE | 2020-01-26 08:21 | NUR ---
food provided to patient
[2020-01-26 15:27] VITALS: BP 116/61
--- NOTE | 2020-01-26 15:27 | NUR ---
Patient given written and verbal discharge instructions. Patient verbalizes understanding of instructions. Patient is ambulatory with steady gait. Refuses offer of snf placement. Patient given list of available shelters in surrounding area. wheelchair provided.
== END 2020-01-26 15:27 | disposition home or self-care (01) ==
LOC: ER 21:52
DX: M86.672 Other chronic osteomyelitis, left ankle and foot (principal); M86.671 Other chronic osteomyelitis, right ankle and foot; G82.20 Paraplegia, unspecified; Z93.3 Colostomy status; Z88.8 Allergy status to other drugs, medicaments and biological substances; Z88.6 Allergy status to analgesic agent; Z60.2 Problems related to living alone; Z79.899 Other long term (current) drug therapy
CPT/HCPCS: 99285; A4362; A6403

== ENCOUNTER 2020-01-28 01:08 | Inpatient (IN) | payer MEDICARE, OTHER ==
[~2020-01-28] VITALS: Ht 157.5 cm; Wt 63.5 kg
--- NOTE | 2020-01-28 01:15 | NUR ---
PT OUMAR FROM [place] C/O FOOT PAIN. HX OF OSTEOMYLITIS. PT AAOX4. RESPIRATIONS EVEN AND UNLABORED. NO ACUTE DISTRESS NOTED AT THIS TIME. WILL CONTINUE TO MONITOR
[2020-01-28] MEDS ORDERED: CEFTRIAXONE 2 G in IV D5W 50 ML IV ONE (02:30)
[2020-01-28] MEDS ORDERED: VANCOMYCIN 1.25 GM in IV D5W 500 ML IV ONE (02:30)
--- NOTE | 2020-01-28 03:00 | NUR ---
PT REFUSED MRSA SWAB
[2020-01-28] MEDS ORDERED: VANCOMYCIN 1 GM VIAL ONE (03:06)
[2020-01-28] MEDS ORDERED: MORPHINE SULFATE INJ 4 MG/ML DISP.SYRIN ONE (03:06)
[2020-01-28] MEDS ORDERED: CEFTRIAXONE 1GM BAG (ER ONLY) 0 ML IV ONE (03:06)
[2020-01-28] MEDS ORDERED: VANCOMYCIN 500 MG VIAL ONE (03:09)
[2020-01-28] MEDS ORDERED: CEFTRIAXONE 1 G VIAL ONE ×2 (03:09→03:30)
[2020-01-28] MEDS ORDERED: MORPHINE SULFATE INJ 2 MG/ML DISP.SYRIN IV ONE (03:30)
[2020-01-28] MEDS ORDERED: CEFTRIAXONE 500 MG VIAL ONE (03:30)
--- NOTE | 2020-01-28 03:30 | NUR ---
IV LINE ESTABLISHED 22 G RH. BLOOD COLLECTED AND SENT TO LAB
[2020-01-28] MEDS ORDERED: IV NS 0.9% 1,000 ML IV PRN (03:37)
[2020-01-28 03:38] LABS: CALCIUM, SERUM 8.7 mg/dL (8.5-10.1); CREATININE 0.5 mg/dL (0.6-1.3); POTASSIUM 4.2 mmol/L (3.5-5.1)
[2020-01-28 03:44] VITALS: BP 137/89
--- NOTE | 2020-01-28 03:44 | NUR ---
BED ASSIGNMENT 316
[2020-01-28] MEDS ORDERED: MAGNESIUM HYDROXIDE 30 ML UDC PO PRN (04:00)
[2020-01-28] MEDS ORDERED: ONDANSETRON HCL/PF 4 MG/2 ML VIAL IVP PRN (04:00)
[2020-01-28] MEDS ORDERED: ACETAMINOPHEN 325 MG TABLET PO PRN (04:00)
[2020-01-28] MEDS ORDERED: HYDROCODONE/APAP 5/325MG 1 EACH TABLET PO PRN (04:00)
[2020-01-28] MEDS ORDERED: MAG HYDROX/AL HYDROX/SIMETH 30 ML UDC PO PRN (04:00)
[2020-01-28] MEDS ORDERED: Z GUARD REMEDY 2 OZ OINT TP PRN (04:00)
[2020-01-28 04:15] LABS: BASOPHILS % (AUTO) 0.5 % (0.0-2.0); EOSINOPHILS % (AUTO) 3.2 % (0.0-6.0); HEMATOCRIT 30 % (39-51); HEMOGLOBIN 8.8 g/dL (13.5-17.5); LYMPHOCYTES # (AUTO) 0.9 /CMM (0.8-4.8); LYMPHOCYTES % (AUTO) 12.2 % (20.0-44.0); MEAN CORPUSCULAR HGB CONC 30 g/dl (31.0-36.0); MEAN CORPUSCULAR VOLUME 66 fL (80-96); MONOCYTES # (AUTO) 0.8 /CMM (0.1-1.30); MONOCYTES % (AUTO) 11.6 % (2.0-12.0); NEUTROPHILS # (AUTO) 5.2 /CMM (1.8-8.9); NEUTROPHILS % (AUTO) 72.5 % (43.0-81.0); PLATELET COUNT (AUTO) 537 /CMM (150-450); RED BLOOD CELL COUNT(AUTO) 4.53 MIL/uL (4.5-6.0); WHITE BLOOD COUNT (AUTO) 7.2 K/uL (4.3-11.0)
--- NOTE | 2020-01-28 04:29 | NUR ---
PT TRANSFERRED TO ROOM IN STABLE CONDITION
[2020-01-28] MEDS: HYDROMORPHONE INJ 2 MG/ML DISP.SYRIN IV PRN ×2 (05:40→12:00)
[2020-01-28] MEDS ORDERED: FEE PK DOSING 1 MIN EA MC ONE (06:23)
[2020-01-28] MEDS: PIPERACILLIN /TAZOBACTAM 3.375 G in IV D5W 50 ML IV SCH ×3 (06:49→18:00)
--- NOTE | 2020-01-28 07:31 | NUR ---
MS/TELE/RN RECEIVED PATIENT FROM [facility] VIA [facility], AT AROUND 0430, PATIENT WAS AWAKE, ALERT, ORIENTED, AGITATED, VERBALLY ABUSIVE, CALLING US NAMES, TALKS IN A HIGH VOICE, HEAD PAPER TESTER WAS CALLED WHO STAYED IN THE ROOM. PATIENT REFUSED TO ANSWER ADMISSION QUESTIONS, PATIENT WAS VERY STINKY, VERY WET OF HIS URINE. INITIALLY, PATIENT REFUSED SKIN ASSESSMENT, BUT LATER ON AGREED. PATIENT HAS COLOSTOMY, BAG WAS CHANGED, PATIENT ALSO HAS UROSTOMY, THE COLOSTOMY BAG WAS PLACED. PATIENT IS PARAPLEGIC, HAS WOUNDS AT BILATERAL FOOT, AND BIG WOUND AT SACRUM. PHOTOS WAS TAKEN PER PROTOCOL. CLEANSED WOUNDS IN BOTH FEET WITH NS, APPLIED XEROFORM TO WOUNDS, AND WRAPPED WITH KERLIX. AT THE SACRAL WOUND, CLEANSED WITH NS, WET TO DRY DRESSING DONE, COVER WITH ABD PADS, SECURED WITH PAPER TAPE. MADE COMFORTABLE IN BED, MADE CLEAN AND DRY, PLACED CALL LIGHT IN REACH. FALL PRECAUTIONS PER PROTOCOL, ADMISSION ORDERS CARRIED OUT. ENDORSED TO DAY SHIFT RN FOR CONTINUITY OF CARE.
--- NOTE | 2020-01-28 08:00 | NUR ---
RN OPENING NOTES THE IS A/O X4. NO S/S/ OF RESPIRATORY DISTRESS NOTED WHEN ASSESSED. THE PATIENT HAS SEVERAL WOUNDS THROUGHOUT THE BODY, ONE ON THE SACRAL, TOE AND LEGS. THE PATIENT IS REFUSING FURTHER ASSESSMENT AT THIS TIME. THE PATIENT IS UNCOOPERATIVE AND VERBALLY ABUSIVE. UNABLE TO OBTAIN ANY PAST MEDICAL HISTORY AT THIS MOMENT. BED IS LOCKED IN LOWEST POSITION, CALL LIGHT WITHIN REACH, SIDE RAILS UP X 2. WILL CONTINUE TO MONITOR AT THIS TIME.
[2020-01-28] MEDS: VANCOMYCIN 1 GM in IV D5W 250 ML IV SCH ×3 (10:00→18:00)
[2020-01-28] MEDS: diphenhydrAMINE HCL 25 MG CAPSULE PO PRN ×2 (10:05→10:12)
--- NOTE | 2020-01-28 10:30 | NUR ---
THE PATIENT IS REFUSING TO TAKE ALL MEDICATIONS. THE PATIENT IS BEING VERBALLY ABUSIVE, CALLING F NAME ON THE AGRICULTURAL EXTENSION AGENT AND MYSELF. THE PATIENT REFUSES TO TAKE ATB AND THE REST FO THE MEDICATIONS.
[2020-01-28] MEDS: DAKINS QUARTER STRENGTH (0.125%) 480 ML BOTTLE TOP SCH ×2 (12:00→17:00)
--- NOTE | 2020-01-28 12:19 | NUR ---
THE PATIENT WOULD LIKE TO HAVE THE ZOSYN ABX AT THIS, BUT REFUSED THE 1000 AM DOSE OF VANCO.
--- NOTE | 2020-01-28 12:22 | NUR ---
The patient is refusing wound care at this time. Dressing looks visibly clean at this time. Patient states he would like to have it at a later time. Patient has refused to do the morning blood work. The patient states that at a later time he will be okay with it.
--- NOTE | 2020-01-28 13:54 | NUR ---
The patient is refusing to do the CT at this time. has been made aware.
--- NOTE | 2020-01-28 14:45 | NUR ---
Per MD order, it is okay to give one time Benadryl IV of 25mg IV. Per MD, okay to give an extra dose of dilaudid 1mg when the patient goes for a CT scan.
--- NOTE | 2020-01-28 14:59 | NUR ---
Just spoke with the radiology department to have the patient do the CT. They will schedule the CT at around 7 pm.
[2020-01-28] MEDS ORDERED: diphenhydrAMINE HCL 50 MG/ML VIAL IV ONE (15:00)
--- NOTE | 2020-01-28 17:07 | NUR ---
WENT TO GET PATIENT BUT REFUSE TO COME DOWN AND NURSE WILL CALL BACK ONCE IS READY @1700 YW
--- NOTE | 2020-01-28 18:34 | NUR ---
The patient has refused the evening ABXs, and another attempt by the Radiology department to do a CT scan.
--- NOTE | 2020-01-28 18:41 | NUR ---
RN CLOSING NOTES: The patient remains stable. Vital WNL. The patient has been refusing all medications, and any body care treatment. Will endorse the next shift for the continuity of care.
--- NOTE | 2020-01-28 19:55 | NUR ---
RN OPENING NOTES RECEIVED REPORT FROM DAYSHIFT RNJANY (FROM [facility]). FOUND Pt ASLEEP IN BED. NO S/S OF ACUTE DISTRESS OR SOB NOTED. RESPIRATIONS EVEN AND UNLABORED WITH EQUAL CHEST RISE AND FALL. IV ACCESS ON RHAND #22G, IVF NS @75ML/HR. SAFETY MEASURES IN PLACE. BED LOW, LOCKED, HOB ELEVATED, SIDE RAILS UP, CALL LIGHT AND BEDSIDE TABLE WITHIN REACH. WILL CONTINUE TO MONITOR Pt'S CONDITION AND SAFETY THROUGHOUT THE NIGHT.
--- NOTE | 2020-01-28 20:15 | NUR ---
RN NOTES WAS TOLD THAT Pt WAS ASKING FOR BENADRYL. CHECKED eMAR TO SEE WHEN THE LAST BENADRYL WAS GIVEN. WENT TO ROOM TO SPEAK WITH Pt BUT Pt WAS ASLEEP.
--- NOTE | 2020-01-28 20:30 | NUR ---
RN NOTES Pt REFUSED VITAL SIGNS TO BE TAKEN.
--- NOTE | 2020-01-28 21:38 | NUR ---
RN NOTES Pt ASKED FOR HIS IV BENADRYL & HIS IV PAIN MED. TOLD Pt THAT THE BENADRYL IS NOW PO AND HIS DILAUDID IV PAIN MED WAS DISCONTINUED PER DR's ORDERS DURING DAYSHIFT. Pt GOT ANGRY AND STARTED YELLING. SAYING THAT HE DOESN'T TAKE ANYTHING PO BECAUSE IT DOES NOT WORK FOR HIM. NOTICED THAT THE IV LINE FROM THE IVF WAS STILL RUNNING BUT WAS NOT CONNECTED TO THE Pt. Pt HAS REMOVED THE IVF LINE. ASKED IF I COULD RECONNECT HIM TO HIS IVF, BUT HE REFUSED, AND SAID "I DONT WANT THAT SHIT." Pt HOWEVER DID ASK FOR SNACKS, TOWELS, NEW URINALS, & A NEW GOWN. PROVIDED Pt WITH SNACKS, NEW TOWELS, 2 NEW URINALS, & A NEW GOWN AT BEDSIDE. BEFORE I LEFT, ASKED AGAIN IF Pt STILL WANTS THE PO BENADRYL & NORCO, AND Pt YELLED BACK "JUST GET THE HELL OUT YOU DUMBASS NURSE. AND CLOSE MY DAM DOOR." WILL CONTINUE TO MONITOR.
--- NOTE | 2020-01-28 23:30 | NUR ---
RN NOTES WENT INSIDE Pt's ROOM WITH BINDER ROLLER/DRY ROLLER TO SEE IF Pt WILL BE COMPLIANT IN ALLOWING FOR LAB TO DRAW BLOOD, Pt JUST GOT AGITATED AND SAID TO LEAVE HIM ALONE AND PULLED THE BLANKET OVER HIS HEAD, AND SAID "YOU CAN CLOSE THE DOOR BEHIND YOU." WHEN I ASKED Pt IF I CAN RECONNECT HIM TO THE IVF LINE SO THAT I CAN ADMINISTER HIS IV ANTIBIOTICS ZOSYN AND VANCO LATER, Pt DID NOT REMOVE HIS BLANKET OVER HIS HEAD, AND CONTINUED TO YELL SAYING "LEAVE ME THE FUCK ALONE. I'M IN PAIN AND Y'ALL ARE DOING NOTHING TO HELP ME." I OFFERED HIM A NORCO, WHICH IS THE ONLY PAIN MED HE HAS, BUT Pt REFUSED STATING "FUCK A NORCO; I DONT WANT THAT SHIT. JUST TURN OFF THE DAM LIGHTS AND CLOSE THE DAM DOOR." WILL CONTINUE TO MONITOR.
[2020-01-29] MEDS: VANCOMYCIN 1 GM in IV D5W 250 ML IV SCH (01:49)
[2020-01-29] MEDS: PIPERACILLIN /TAZOBACTAM 3.375 G in IV D5W 50 ML IV SCH ×3 (06:00)
--- NOTE | 2020-01-29 06:35 | NUR ---
RN NOTES ASKED Pt IF I CAN ADMINISTER HIS IV ABX ZOSYN. Pt WAS VERY AGITATED YELLING THAT ALL WE "CARE ABOUT IS THE DAM ANTIBIOTICS AND NOT GIVE A DAM ABOUT MY PAIN. AND BESIDES I DONT HAVE THE IV IN MY HAND NO MORE, IT'S ON THE FLOOR." WHEN I ASKED IF I CAN INSERT A NEW IV IN HIM, Pt SAID "WHAT's THE FUCKING POINT. I'M NOT GETTING ANY OF MY IV PAIN MEDS OR BENADRYL. YOU'RE ONLY GIVING ME PILLS THAT DONT DO SHIT FOR ME." WHEN I EXPLAINED THAT THE IV ABX WAS IMPORTANT TO TREAT HIS INFECTION, Pt STATED "FUCK THE IV ANTIBIOTICS. THAT'S ALL YOU PEOPLE CARE ABOUT. WHAT ABOUT MY DAM PAIN?" AGAIN I EXPLAINED THAT THE DR DISCONTINUED THE IV DILAUDID, BUT THAT HE HAS A NORCO STILL AVAILABLE, Pt YELLED "JUST GET THE FUCK OUT OF MY ROOM YOU STUPID DUMB BITCH. HOW MANY TIMES DO I HAVE TO REPEAT MYSELF?"
--- NOTE | 2020-01-29 06:53 | NUR ---
RN CLOSING NOTES ALL NEEDS MET AND ATTENDED TO. COLOSTOMY AND UROSTOMY BAGS WERE CHANGED. NO S/S OF ACUTE DISTRESS OR SOB NOTED DURING THE NIGHT. WILL ENDORSE TO DAYSHIFT RN FOR Pt's BHARAT.
--- NOTE | 2020-01-29 07:38 | NUR ---
rn notes patient told me to not come back in his room again, called me "an faggot that he does not want to see", told him to use the call light if he needs anyone or anything. Patient is verbally abusive and hates males apparently. Does not have an IV because he pulled it out. Bed at the lowest setting, call light within reach, side rails up x2.
[2020-01-29] MEDS: DAKINS QUARTER STRENGTH (0.125%) 480 ML BOTTLE TOP SCH (08:19)
--- NOTE | 2020-01-29 09:33 | NUR ---
rn notes patient leaving AMA, refusing to sign AMA form
== END 2020-01-29 09:35 | disposition left against medical advice (07) | DRG 539 ==
LOC: ER 01:12 → MED 03:54
PROVIDERS: ADMIT Student in an Organized Health Care Education/Training Program; ATTEND Student in an Organized Health Care Education/Training Program
DX: M86.672 Other chronic osteomyelitis, left ankle and foot (principal); E43 Unspecified severe protein-calorie malnutrition; G82.20 Paraplegia, unspecified; D68.69 Other thrombophilia; D63.8 Anemia in other chronic diseases classified elsewhere; W34.00XS Accidental discharge from unspecified firearms or gun, sequela; D50.9 Iron deficiency anemia, unspecified; Z59.0 Homelessness; Z86.718 Personal history of other venous thrombosis and embolism; Z93.3 Colostomy status; F17.210 Nicotine dependence, cigarettes, uncomplicated; E88.09 Other disorders of plasma-protein metabolism, not elsewhere classified; L89.159 Pressure ulcer of sacral region, unspecified stage; Z91.19 Patient's noncompliance with other medical treatment and regimen; L97.519 Non-pressure chronic ulcer of other part of right foot with unspecified severity; L97.529 Non-pressure chronic ulcer of other part of left foot with unspecified severity; Z79.01 Long term (current) use of anticoagulants; Z68.25 Body mass index [BMI] 25.0-25.9, adult
CPT/HCPCS: 36415; 73630-TC; 80048-TC; 82040-TC; 85025-TC; 87040-TC; A4362; A6253; A6403; G0378; J0696; J1170; J1200; J2270; J2543; J3370; J7030; J7060; Q0163

== ENCOUNTER 2020-02-01 10:40 | Emergency (ER) | payer MEDICARE, OTHER ==
[~2020-02-01] VITALS: Ht 157.5 cm; Wt 63.5 kg
[2020-02-01 10:50] VITALS: BP 132/70
--- NOTE | 2020-02-01 11:32 | NUR ---
PT REQUESTED COLOSTOMY BAG. PROVIDED WITH. PT WANTS TO LEAVE ED. SEEN AND EVALUATED BY TIFFANY CAMPBELL. REFUSED TO SIGN HOMELESS WAIVER AND ACI LEFT ED IN STABLE CONDITION.
== END 2020-02-01 11:39 | disposition home or self-care (01) ==
LOC: ER 10:42
DX: M86.671 Other chronic osteomyelitis, right ankle and foot (principal); M86.672 Other chronic osteomyelitis, left ankle and foot; Z59.0 Homelessness; Z88.9 Allergy status to unspecified drugs, medicaments and biological substances; Z88.6 Allergy status to analgesic agent; Z60.2 Problems related to living alone

== ENCOUNTER 2020-02-04 08:12 | Emergency (ER) | payer MEDICARE, OTHER ==
[~2020-02-04] VITALS: Ht 157.5 cm; Wt 63.5 kg
[2020-02-04 08:14] VITALS: BP 104/55
--- NOTE | 2020-02-04 08:14 | NUR ---
[id number], from [facility], c/o left foot pain, 10/10 pain scale, to ER bed 14, hooked to monitor, warm blanket provided, patient aao x 4, breathing even and unlabored. awaiting MD alejo.
--- NOTE | 2020-02-04 10:40 | NUR ---
CLEANSED AND DRESSING CHANGE DONE ON UNSTAGEABLE ULCER AT L&R HEEL AND LOWER BACK EXTENDING TO BUTTOCKS AREA.
--- NOTE | 2020-02-04 11:50 | NUR ---
Patient given written and verbal discharge instructions. Patient verbalizes understanding of instructions. Patient is ambulatory with steady gait. Refuses offer of custodial placement. Patient given list of available shelters in surrounding area.
== END 2020-02-04 11:52 | disposition home or self-care (01) ==
LOC: ER 08:16
DX: L97.828 Non-pressure chronic ulcer of other part of left lower leg with other specified severity (principal); L97.818 Non-pressure chronic ulcer of other part of right lower leg with other specified severity; I73.89 Other specified peripheral vascular diseases; Z88.8 Allergy status to other drugs, medicaments and biological substances; Z88.6 Allergy status to analgesic agent; Z60.2 Problems related to living alone
CPT/HCPCS: 99283; A6403 ×3

== ENCOUNTER 2020-02-17 19:13 | Emergency (ER) | payer MEDICARE, MEDICAID ==
[~2020-02-17] VITALS: Ht 157.5 cm; Wt 63.5 kg
[2020-02-17] MEDS ORDERED: HYDROCODONE/APAP 5/325MG 1 EACH TABLET PO ONE (19:30)
[2020-02-17] MEDS ORDERED: HYDROCODONE/APAP 5/325MG 1 EACH TABLET ONE (19:44)
--- NOTE | 2020-02-17 19:51 | NUR ---
XRAY AT BEDSIDE.
[2020-02-17] MEDS ORDERED: diphenhydrAMINE HCL 50 MG/ML VIAL ONE ×2 (19:54→22:15)
[2020-02-17] MEDS ORDERED: diphenhydrAMINE HCL 50 MG/ML VIAL IV ONE ×2 (20:00→22:30)
--- NOTE | 2020-02-17 20:46 | NUR ---
MEDICAL ASSISTANT DERMATOLOGY AT BEDSIDE FOR BLOOD DRAW
[2020-02-17] MEDS ORDERED: MORPHINE SULFATE INJ 2 MG/ML DISP.SYRIN ONE ×2 (20:50→21:16)
[2020-02-17] MEDS ORDERED: ONDANSETRON HCL/PF 4 MG/2 ML VIAL ONE (20:50)
[2020-02-17] MEDS ORDERED: MORPHINE SULFATE INJ 2 MG/ML DISP.SYRIN IV ONE (21:00)
[2020-02-17] MEDS ORDERED: ONDANSETRON HCL/PF 4 MG/2 ML VIAL IV ONE (21:00)
[2020-02-17 22:07] LABS: BASOPHILS # (AUTO) 0.1 /CMM (0.0-0.2); BASOPHILS % (AUTO) 0.5 % (0.0-2.0); EOSINOPHILS % (AUTO) 0.7 % (0.0-6.0); HEMATOCRIT 26 % (39-51); HEMOGLOBIN 7.6 g/dL (13.5-17.5); LYMPHOCYTES # (AUTO) 0.7 /CMM (0.8-4.8); LYMPHOCYTES % (AUTO) 6.5 % (20.0-44.0); MEAN CORPUSCULAR HGB CONC 29 g/dl (31.0-36.0); MEAN CORPUSCULAR VOLUME 64 fL (80-96); MONOCYTES # (AUTO) 0.7 /CMM (0.1-1.30); MONOCYTES % (AUTO) 6.3 % (2.0-12.0); NEUTROPHILS # (AUTO) 9.4 /CMM (1.8-8.9); PLATELET COUNT (AUTO) 486 /CMM (150-450); WHITE BLOOD COUNT (AUTO) 10.9 K/uL (4.3-11.0)
[2020-02-17 22:24] LABS: CALCIUM, SERUM 8.4 mg/dL (8.5-10.1); CREATININE 0.8 mg/dL (0.6-1.3)
--- NOTE | 2020-02-17 23:21 | NUR ---
PATIENT IS AWAKE. PATIENT IS WATCHING TELEVISION. PATIENT IS GIVEN JUICE, PER PATIENT REQUEST. PATIENT IS BREATHING EVENLY AND UNLABORED ON ROOM AIR. NOT IN DISTRESS. CONNECTED TO MONITOR. CALL LIGHT WITHIN REACH.
[2020-02-18 01:16] LABS: EOSINOPHILS % (MANUAL) 1 % (0-4); LYMPHOCYTES % (MANUAL) 6 % (16-48); MONOCYTES % (MANUAL) 6 % (0-11.0); NEUTROPHILS % (MANUAL) 83 (42-76); REACTIVE LYMPHOCYTES 0 % (0-0)
[2020-02-18 01:17] LABS: BAND % (MANUAL) 4 % (0.0-5.0); BASOPHILS % (MANUAL) 0 % (0.0-2.0)
--- NOTE | 2020-02-18 01:41 | NUR ---
PATIENT IS SLEEPING. NOT IN ANY DISTRESS. BREATHING EVENLY AND UNLABORED ON ROOM AIR. CONNECTED TO MONITOR. NO SOB. SIDE RAILS ARE UP FOR SAFETY. CALL LIGHT WITHIN REACH.
--- NOTE | 2020-02-18 04:57 | NUR ---
PATIENT IS ASLEEP. PT IS EASILY AWAKEN THROUGH TOUCH OR VERBAL STIMULI. NO SOB. BREATHING EVENLY AND UNLABORED ON ROOM AIR. CONNECTED TO THE MONITOR. CALL LIGHT WITHIN REACH. SIDE RAILS ARE UP FOR SAFETY.
--- NOTE | 2020-02-18 06:54 | NUR ---
IV removed. Catheter intact and site benign. Pressure and 4x4 applied to site. No bleeding noted.
--- NOTE | 2020-02-18 07:09 | NUR ---
PATIENT'S HEEL WOUND IS CLEANED AND WRAPPED WITH STERILE KERLEX.
--- NOTE | 2020-02-18 07:50 | NUR ---
IV removed. Catheter intact and site benign. Pressure and 4x4 applied to site. No bleeding noted.
--- NOTE | 2020-02-18 07:54 | NUR ---
Patient given written and verbal discharge instructions. Patient verbalizes understanding of instructions. Patient is ambulatory with steady gait. Refuses offer of residential placement. Patient given list of available shelters in surrounding area.
[2020-02-18 07:55] VITALS: BP 122/81
== END 2020-02-18 07:56 | disposition home or self-care (01) ==
LOC: ER 19:15
DX: L97.529 Non-pressure chronic ulcer of other part of left foot with unspecified severity (principal); D64.9 Anemia, unspecified; F17.200 Nicotine dependence, unspecified, uncomplicated; Z88.8 Allergy status to other drugs, medicaments and biological substances; Z60.2 Problems related to living alone
CPT/HCPCS: 36415; 73620; 80048; 85025; 93971; 96374; 96375; 96376; 99285; J1200 ×2; J2270 ×2; J2405

== ENCOUNTER 2020-02-29 06:59 | Emergency (ER) | payer MEDICARE, OTHER ==
[~2020-02-29] VITALS: Ht 165.1 cm; Wt 71.2 kg
--- NOTE | 2020-02-29 07:00 | NUR ---
PT BIBRA C/O L LEG SWELLING, PT IS AAOX4, NOT IN RESPIRATORY DISTRESS, V/S STABLE, KEPT RESTED AND COMFORTABLE. WILL CONTINUE TO MONITOR.
--- NOTE | 2020-02-29 07:15 | NUR ---
PT SEEN AND EXAMINED BY .
[2020-02-29] MEDS ORDERED: HYDROCODONE/APAP 5/325MG TABLET ONE (07:26)
[2020-02-29] MEDS ORDERED: diphenhydrAMINE HCL 50 MG/ML VIAL ONE (07:26)
[2020-02-29] MEDS ORDERED: diphenhydrAMINE HCL 50 MG/ML VIAL IV ONE (07:30)
[2020-02-29] MEDS ORDERED: HYDROCODONE/APAP 5/325MG TABLET PO ONE (07:30)
[2020-02-29 08:10] LABS: BASOPHILS % (AUTO) 0.4 % (0.0-2.0); HEMOGLOBIN 7.6 g/dL (13.5-17.5); MONOCYTES # (AUTO) 0.5 /CMM (0.1-1.30); NEUTROPHILS % (AUTO) 77.4 % (43.0-81.0)
[2020-02-29 08:13] LABS: EOSINOPHILS % (AUTO) 2.1 % (0.0-6.0); HEMATOCRIT 28 % (39-51); LYMPHOCYTES % (AUTO) 13.5 % (20.0-44.0); MEAN CORPUSCULAR HGB CONC 27 g/dl (31.0-36.0); MEAN CORPUSCULAR VOLUME 67 fL (80-96); MONOCYTES % (AUTO) 6.6 % (2.0-12.0); NEUTROPHILS # (AUTO) 5.9 /CMM (1.8-8.9); PLATELET COUNT (AUTO) 527 /CMM (150-450); RED BLOOD CELL COUNT(AUTO) 4.18 MIL/uL (4.5-6.0); WHITE BLOOD COUNT (AUTO) 7.6 K/uL (4.3-11.0)
--- NOTE | 2020-02-29 08:15 | NUR ---
WOUND DRESSING DONE.
--- NOTE | 2020-02-29 08:20 | NUR ---
ER PHLEB AT BEDSIDE FOR BLOOD DRAW.
[2020-02-29 08:27] LABS: ALBUMIN 2.3 g/dL (3.4-5.0); BILIRUBIN,DIRECT 0.1 mg/dL (0.0-0.2); BILIRUBIN,TOTAL 0.1 mg/dL (0.2-1.0); CALCIUM, SERUM 8.7 mg/dL (8.5-10.1); CREATININE 0.6 mg/dL (0.6-1.3); POTASSIUM 3.6 mmol/L (3.5-5.1); TOTAL PROTEIN, SERUM 8.6 g/dL (6.4-8.2)
--- NOTE | 2020-02-29 08:46 | NUR ---
Note pacheco in ED - 02/29/20 at 0847 by HUA Patient given written and verbal discharge instructions. Patient verbalizes understanding of instructions. Patient is ambulatory with steady gait. Refuses offer of prison placement. Patient given list of available shelters in surrounding area.
--- NOTE | 2020-02-29 08:46 | NUR ---
Note vicentejoseph in ED - 02/29/20 at 0847 by HUA Patient does not wish to proceed with medical care recommended by Dr. Benito. Patient given information related to possible complications, up to and including , which could occur as a result of leaving the hospital at this time. Patient verbalizes understanding of risks involved due to leaving against medical advice. Patient has signed AMA form.
[2020-02-29 08:47] VITALS: BP 121/79
--- NOTE | 2020-02-29 08:47 | NUR ---
Patient does not wish to proceed with medical care recommended by Dr. Benito. Patient given information related to possible complications, up to and including , which could occur as a result of leaving the hospital at this time. Patient verbalizes understanding of risks involved due to leaving against medical advice. Patient redused to signed.
[2020-02-29 10:03] LABS: LYMPHOCYTES % (MANUAL) 8 % (16-48); MONOCYTES % (MANUAL) 6 % (0-11.0); NEUTROPHILS % (MANUAL) 86 (42-76)
== END 2020-02-29 09:06 | disposition left against medical advice (07) ==
LOC: ER 06:59
DX: M79.672 Pain in left foot (principal); M86.672 Other chronic osteomyelitis, left ankle and foot; F17.200 Nicotine dependence, unspecified, uncomplicated; Z88.8 Allergy status to other drugs, medicaments and biological substances; Z60.2 Problems related to living alone
CPT/HCPCS: 36415; 80048; 80076; 83605; 84145; 85025; 85730; 87040; 96374; 99283; J1200

== ENCOUNTER 2020-02-29 23:37 | Emergency (ER) | payer MEDICARE, OTHER ==
[~2020-02-29] VITALS: Ht 165.1 cm; Wt 71.2 kg
--- NOTE | 2020-03-01 00:15 | NUR ---
TECH AT BEDSIDE FOR DRESSING CHANGE
--- NOTE | 2020-03-01 07:11 | NUR ---
Pt provided with clean clothes, dressings changed, urostomy bag changed, food provided. Pt discharged in stable condition.
[2020-03-01 07:12] VITALS: BP 135/80
== END 2020-03-01 07:13 | disposition home or self-care (01) ==
LOC: ER 23:40
DX: M86.671 Other chronic osteomyelitis, right ankle and foot (principal); G89.29 Other chronic pain; Z88.8 Allergy status to other drugs, medicaments and biological substances; Z60.2 Problems related to living alone

== ENCOUNTER 2020-03-03 01:22 | Inpatient (IN) | payer MEDICARE, OTHER ==
[~2020-03-03] VITALS: Ht 165.1 cm; Wt 71.2 kg
[2020-03-03 01:33] VITALS: BP 131/81
--- NOTE | 2020-03-03 01:40 | NUR ---
PT BIBA FOR CHRONIC L AND R INFECTED FEET. +SWELLING +NECROSIS. PT AAOX4, RESPIRATIONS EVEN AND UNLABORED ON RA W/ NAD NOTED. PT CONNECTED TO THE MONTIOR AND POX
--- NOTE | 2020-03-03 01:47 | NUR ---
PATIENT IS RUDE TO STAFF. CURSING AT STAFF. USING RACIAL SLURS AT STAFF.
--- NOTE | 2020-03-03 01:54 | NUR ---
PATIENT REFUSED TO HAVE VITAL SIGNS TAKEN.
--- NOTE | 2020-03-03 01:57 | NUR ---
Patient refused left foot xray. Dr Johnson notified.
--- NOTE | 2020-03-03 02:20 | NUR ---
PATIENT REFUSING IV, NOTIFIED.
[2020-03-03] MEDS ORDERED: CEFTRIAXONE 2 G in IV D5W 50 ML IV ONE (02:30)
[2020-03-03] MEDS ORDERED: VANCOMYCIN 1 GM in IV D5W 250 ML IV ONE (02:30)
--- NOTE | 2020-03-03 02:44 | NUR ---
PATIENT WANTS IV TO DRAW BLOOD AND FOR MEDICATIONS.
--- NOTE | 2020-03-03 02:54 | NUR ---
PATIENT REFUSED TO HAVE VITAL SIGNS TAKEN.
[2020-03-03] MEDS ORDERED: CEFTRIAXONE 1GM BAG (ER ONLY) 100 ML IV ONE (02:56)
[2020-03-03] MEDS ORDERED: diphenhydrAMINE HCL 50 MG/ML VIAL ONE (02:56)
[2020-03-03] MEDS ORDERED: VANCOMYCIN 1 GM VIAL ONE (02:57)
[2020-03-03] MEDS ORDERED: diphenhydrAMINE HCL 50 MG/ML VIAL IV ONE (03:00)
[2020-03-03 03:10] LABS: CALCIUM, SERUM 8.8 mg/dL (8.5-10.1); CREATININE 0.7 mg/dL (0.6-1.3); POTASSIUM 3.8 mmol/L (3.5-5.1)
[2020-03-03 03:14] LABS: BASOPHILS % (AUTO) 0.3 % (0.0-2.0); HEMATOCRIT 27 % (39-51); HEMOGLOBIN 7.8 g/dL (13.5-17.5); LYMPHOCYTES # (AUTO) 1.2 /CMM (0.8-4.8); LYMPHOCYTES % (AUTO) 16.6 % (20.0-44.0); MEAN CORPUSCULAR HGB CONC 29 g/dl (31.0-36.0); MEAN CORPUSCULAR VOLUME 61 fL (80-96); MONOCYTES % (AUTO) 14.5 % (2.0-12.0); NEUTROPHILS # (AUTO) 4.7 /CMM (1.8-8.9); NEUTROPHILS % (AUTO) 66.6 % (43.0-81.0); PLATELET COUNT (AUTO) 569 /CMM (150-450); RED BLOOD CELL COUNT(AUTO) 4.41 MIL/uL (4.5-6.0); WHITE BLOOD COUNT (AUTO) 7.1 K/uL (4.3-11.0)
[2020-03-03 03:44] LABS: EOSINOPHILS % (MANUAL) 3 % (0-4); LYMPHOCYTES % (MANUAL) 20 % (16-48); MONOCYTES % (MANUAL) 6 % (0-11.0); NEUTROPHILS % (MANUAL) 71 (42-76)
--- NOTE | 2020-03-03 03:44 | NUR ---
PATIENT REFUSED TO HAVE VITAL SIGNS TAKEN.
[2020-03-03] MEDS ORDERED: MAG HYDROX/AL HYDROX/SIMETH 30 ML UDC PO PRN (04:00)
[2020-03-03] MEDS ORDERED: ONDANSETRON HCL/PF 4 MG/2 ML VIAL IVP PRN (04:00)
[2020-03-03] MEDS ORDERED: ACETAMINOPHEN 325 MG TABLET PO PRN (04:00)
[2020-03-03] MEDS ORDERED: MAGNESIUM HYDROXIDE 30 ML UDC PO PRN (04:00)
[2020-03-03] MEDS ORDERED: Z GUARD REMEDY 2 OZ OINT TP PRN (04:00)
[2020-03-03] MEDS ORDERED: HYDROCODONE/APAP 5/325MG 1 EACH TABLET PO PRN (04:00)
[2020-03-03 04:01] LABS: C-REACTIVE PROTEIN 20.1 mg/dL (0.0-0.9)
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
--- NOTE | 2020-03-03 04:54 | NUR ---
PATIENT REFUSED TO HAVE VITAL SIGNS TAKEN.
--- NOTE | 2020-03-03 05:00 | NUR ---
RN ADMITTING NOTE RECEIVED PATIENT FROM ER VIA [place] ACCOMPANIED BY TWO RN'S; ADMITTING DIAGNOSIS OF ACUTE OSTEOMYELITIS, REFUSED COVID SWAB PER SHIRT CLEANER. PATIENT AWAKE, ALERT AND ORIENTED X4. JANE TESFAYE, STARTED THROWING STUFF AT STAFF WHILE CURSING, STATED HE DOES NOT WANT TO STAY HERE. REFUSES TO SIGN WAIVER FORM LEAVING HOSPITAL AGAINTS MEDICAL ADVICE. SECURITY WAS CALLED, BUT PATIENT DOES NOT WANT TO COOPERATE. REFUSED TO BE CLEANED AND VS TAKEN. BREATHING DOES NOT APPEAR LABORED. IV LINE NOTED AT RIGHT UPPER ARM G22, DOES NOT APPEAR INFECTED OR INFILTRATED. NOTED BLE EDEMA, BLE MULTIPLE WOUNDS WITH DRESSINGS SOILED, AND WOUNDS APPEAR INFECTED. REFUSES TO HAVE WOUND DRESSINGS CHANGED. AGRICULTURAL AND FORESTRY SUPERVISOR AND ADMITTING MD MADE AWARE OF SITUATION. SAFETY MEASURES IMPLEMENTED PER PROTOCOL. PATIENT BED ALARM IS ON. BED IS LOCKED, IN LOWEST POSITION AND SIDE RAILS UP. CALL LIGHT WITHIN REACH OF THE PATIENT. PROPER ISOLATION PRECAUTIONS IN PLACE. WILL CONTINUE TO MONITOR AND ATTEND TO MD ORDERS.
[2020-03-03] MEDS ORDERED: FEE PK DOSING 1 MIN EA MC ONE (07:24)
--- NOTE | 2020-03-03 07:40 | NUR ---
RN OPENING NOTE RECEIVED PT IN BED FROM PM NURSE. PATIENT AWAKE, ALERT AND ORIENTED X4. PATIENT IS RUDE, STARTED THROWING STUFF AT STAFF AND SPITTING AT STAFF, WHILE CURSING, STATED HE DOES NOT WANT TO STAY HERE. REFUSES TO SIGN WAIVER FORM LEAVING HOSPITAL AGAINTS MEDICAL ADVICE. SECURITY WAS CALLED, BUT PATIENT DOES NOT WANT TO COOPERATE. REFUSED TO BE CLEANED AND VS TAKEN. BREATHING DOES NOT APPEAR LABORED. IV LINE NOTED AT RIGHT UPPER ARM G22, DOES NOT APPEAR INFECTED OR INFILTRATED. WILL CONTINUE TO MONITOR
--- NOTE | 2020-03-03 09:00 | NUR ---
EDUCATED PATIENT TO STAY IN HOSPITAL FOR BHARAT. PATIENT REFUSED TO LISTEN AND LEFT THE HOSPITAL. PATIENT VERY RUDE. PATIENT SPITS AT STAFF, THROWS STUFF AT STAFF AND SWINGS . PATIENT REFUSED TO SIGN AGAINST MEDICAL ADVICE FORM. RIGHT UPPER ARM #22 IV WAS REMOVED. CHARGE NURSE, PIPE CUTTER AND MD AWARE.
[2020-03-03] MEDS ORDERED: VANCOMYCIN 1 GM in IV D5W 250 ML IV SCH (12:00)
[2020-03-04] MEDS ORDERED: CEFTRIAXONE 1 G in IV D5W 50 ML IV SCH (03:00)
== END 2020-03-03 09:05 | disposition left against medical advice (07) | DRG 540 ==
LOC: ER 01:25 → TELE-TD 03:55 → MEDSG1 03:58
PROVIDERS: ADMIT Nurse Practitioner Acute Care; ATTEND Nurse Practitioner Acute Care
DX: M86.172 Other acute osteomyelitis, left ankle and foot (principal); G82.20 Paraplegia, unspecified; D63.8 Anemia in other chronic diseases classified elsewhere; W34.00XS Accidental discharge from unspecified firearms or gun, sequela; Z88.8 Allergy status to other drugs, medicaments and biological substances; D47.3 Essential (hemorrhagic) thrombocythemia; Z91.19 Patient's noncompliance with other medical treatment and regimen
CPT/HCPCS: 36415; 73620-TC; 80048-TC; 82728-TC; 85025-TC; 85652-TC; 86140-TC; 87040-TC; 87081-TC; A6403; G0378; J0696; J1200; J3370; J7060

== ENCOUNTER 2020-03-11 03:46 | Emergency (ER) | payer MEDICARE, OTHER ==
[~2020-03-11] VITALS: Ht 167.6 cm; Wt 68.9 kg
[2020-03-11 03:47] VITALS: BP 134/90
== END 2020-03-11 05:53 | disposition home or self-care (01) ==
LOC: ER 03:47
DX: M86.672 Other chronic osteomyelitis, left ankle and foot (principal); F17.200 Nicotine dependence, unspecified, uncomplicated; Z88.8 Allergy status to other drugs, medicaments and biological substances; Z60.2 Problems related to living alone

== ENCOUNTER 2020-03-11 15:59 | Emergency (ER) | payer MEDICARE, OTHER ==
[~2020-03-11] VITALS: Ht 167.6 cm; Wt 68.9 kg
--- NOTE | 2020-03-11 16:10 | NUR ---
attempted to initiate IV access and patient is verbally abusive to staff "get the fuck out of here" and throwing things on the floor.
--- NOTE | 2020-03-11 16:11 | NUR ---
OUMAR FROM STREET TO ER BED 14. AAOX4. NOT IN RESP DISTRESS, BREATHING EVEN AND UNLABORED. CAME IN FOR LEFT LOWER LEG PAIN D/T HIS CHRONIC WOUND. PT RATES PAIN 06/01. MD WAS AT THE BEDSIDE FOR EVAL. ORDERS RECEIVED NOTED AND CARRIED OUT
--- NOTE | 2020-03-11 16:36 | NUR ---
calixto refused MEAGAN Addendum: 03/11/20 at [address] contreras
--- NOTE | 2020-03-11 16:45 | NUR ---
AISHA FROM LAB AT BEDSIDE FOR LAB DRAW.
--- NOTE | 2020-03-11 16:50 | NUR ---
AISHA WAS UNABLE TO DRAW, PATIENT REFUSED AND VERBALLY ABUSIVE TOWARDS HER.
--- NOTE | 2020-03-11 17:20 | NUR ---
AISHA FROM LAB ATTEMPTED TO DRAW BLOOD BUT WAS UNABLE TO BECAUSE HE CONTINUED TO BE VERBALLY ABUSIVE TOWARDS HER
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
--- NOTE | 2020-03-11 18:57 | NUR ---
PT WAS ESCORTED OUT BY SECURITY.
[2020-03-11 18:59] VITALS: BP 135/81
== END 2020-03-11 18:59 | disposition home or self-care (01) ==
LOC: ER 16:02
DX: M86.672 Other chronic osteomyelitis, left ankle and foot (principal); L97.529 Non-pressure chronic ulcer of other part of left foot with unspecified severity; R45.6 Violent behavior; G82.20 Paraplegia, unspecified; R00.0 Tachycardia, unspecified; Z88.8 Allergy status to other drugs, medicaments and biological substances; Z88.6 Allergy status to analgesic agent; Z60.2 Problems related to living alone
CPT/HCPCS: 71045; 93005; 99283; A6253

== ENCOUNTER 2020-03-23 01:47 | Emergency (ER) | payer MEDICARE, OTHER ==
[~2020-03-23] VITALS: Ht 152.4 cm; Wt 62.6 kg
--- NOTE | 2020-03-23 01:56 | NUR ---
PT NINFAA [employer] [facility] FOR C/O OF CHRONIC BURNING BACK PAIN. PT A/O X 4. VSS, SR ON MONITOR, NOT IN RESPIRATORY DISTRESS, CONNECTED TO MONITOR AND POX. AWAITING FOR MD QUILES.
[2020-03-23] MEDS ORDERED: diphenhydrAMINE HCL 25 MG CAPSULE ONE (02:42)
[2020-03-23] MEDS ORDERED: diphenhydrAMINE HCL 25 MG CAPSULE PO ONE (03:00)
[2020-03-23 06:28] VITALS: BP 139/81
--- NOTE | 2020-03-23 06:28 | NUR ---
Patient given written and verbal discharge instructions. Patient verbalizes understanding of instructions. Patient is ambulatory with steady gait. Refuses offer of snf placement. Patient given list of available shelters in surrounding area.
== END 2020-03-23 06:29 | disposition home or self-care (01) ==
LOC: ER 01:48
DX: M86.672 Other chronic osteomyelitis, left ankle and foot (principal); L97.429 Non-pressure chronic ulcer of left heel and midfoot with unspecified severity; F17.200 Nicotine dependence, unspecified, uncomplicated; Z88.8 Allergy status to other drugs, medicaments and biological substances; Z60.2 Problems related to living alone
CPT/HCPCS: 99283; A4362; Q0163

== ENCOUNTER 2020-05-02 22:40 | Emergency (ER) | payer MEDICARE, MEDICAID ==
[~2020-05-02] VITALS: Ht 152.4 cm; Wt 62.6 kg
[2020-05-02 22:45] VITALS: BP 110/72
[2020-05-02] MEDS ORDERED: KETOROLAC TROMETHAMINE INJ 30 MG/ML VIAL ONE (23:34)
[2020-05-02] MEDS: KETOROLAC TROMETHAMINE INJ 60 MG/2 ML VIAL IM ONE (23:58)
--- NOTE | 2020-05-03 | NUR ---
PT'S DRESSING CHANGED.
--- NOTE | 2020-05-03 00:39 | NUR ---
Patient given written and verbal discharge instructions. Patient verbalizes understanding of instructions. Patient is ambulatory with steady gait. Refuses offer of half-way placement. Patient given list of available shelters in surrounding area.
== END 2020-05-03 00:40 | disposition home or self-care (01) ==
LOC: ER 22:40
DX: R60.0 Localized edema (principal); L97.929 Non-pressure chronic ulcer of unspecified part of left lower leg with unspecified severity; M86.672 Other chronic osteomyelitis, left ankle and foot; F17.200 Nicotine dependence, unspecified, uncomplicated; Z88.8 Allergy status to other drugs, medicaments and biological substances; Z60.2 Problems related to living alone
CPT/HCPCS: 96372; 99283; J1885

== ENCOUNTER 2020-05-10 23:19 | Emergency (ER) | payer MEDICARE, OTHER ==
[~2020-05-10] VITALS: Ht 152.4 cm; Wt 62.6 kg
--- NOTE | 2020-05-10 23:40 | NUR ---
PT OUMAR FROM STREET C/O CHRONIC LEG PAIN. PT AAOX4. RESPIRATIONS EVEN AND UNLABORED. VITAL SIGNS STABLE. NO ACUTE DISTRESS NOTED AT THIS TIME. WILL CONTINUE TO MONITOR
[2020-05-10] MEDS ORDERED: ACETAMINOPHEN 325 MG TABLET ONE (23:49)
[2020-05-10] MEDS ORDERED: ACETAMINOPHEN ES 500 MG TABLET ONE (23:49)
[2020-05-10] MEDS ORDERED: ONDANSETRON 4 MG TAB.RAPDIS ONE (23:49)
--- NOTE | 2020-05-10 23:50 | NUR ---
PT HAD ONE EPISODE EMESIS. MD MARSHALL.
[2020-05-11] MEDS ORDERED: ACETAMINOPHEN 325 MG TABLET PO ONE
[2020-05-11] MEDS ORDERED: ONDANSETRON 4 MG TAB.RAPDIS SL ONE
--- NOTE | 2020-05-11 | NUR ---
PT REFUSED TYLENOL, AWARE
--- NOTE | 2020-05-11 04:22 | NUR ---
DRESSING CHANGE PROVIDED TO PATIENT LOWER EXT
--- NOTE | 2020-05-11 04:22 | NUR ---
Patient discharged to home in stable condition. Written and verbal after care instructions given. Patient verbalizes understanding of instruction.
[2020-05-11 04:23] VITALS: BP 131/70
== END 2020-05-11 04:25 | disposition home or self-care (01) ==
LOC: ER 23:30
DX: R60.0 Localized edema (principal); M86.672 Other chronic osteomyelitis, left ankle and foot; M86.671 Other chronic osteomyelitis, right ankle and foot; G89.29 Other chronic pain; F17.200 Nicotine dependence, unspecified, uncomplicated; Z88.8 Allergy status to other drugs, medicaments and biological substances; Z60.2 Problems related to living alone
CPT/HCPCS: 99283; Q0162

== ENCOUNTER 2020-06-28 00:38 | Emergency (ER) | payer MEDICARE, OTHER ==
[~2020-06-28] VITALS: Ht 152.4 cm; Wt 62.6 kg
--- NOTE | 2020-06-28 02:00 | NUR ---
WOUND CARE DONE
--- NOTE | 2020-06-28 06:13 | NUR ---
Patient given written and verbal discharge instructions. Patient verbalizes understanding of instructions. Patient is ambulatory with steady gait. Refuses offer of senior care placement. Patient given list of available shelters in surrounding area.
== END 2020-06-28 06:14 | disposition home or self-care (01) ==
LOC: ER 00:41
DX: G89.4 Chronic pain syndrome (principal); G82.20 Paraplegia, unspecified; Z93.3 Colostomy status; M86.60 Other chronic osteomyelitis, unspecified site; F17.200 Nicotine dependence, unspecified, uncomplicated; Z89.612 Acquired absence of left leg above knee; Z88.8 Allergy status to other drugs, medicaments and biological substances; Z60.2 Problems related to living alone
CPT/HCPCS: 99283; A6403

== ENCOUNTER 2020-07-13 01:13 | Emergency (ER) | payer MEDICARE, OTHER ==
[~2020-07-13] VITALS: Ht 129.5 cm; Wt 62.6 kg
--- NOTE | 2020-07-13 03:15 | NUR ---
PT REQUESTED FOOD AND DRINKS. FOOD TRAY PROVIDED
--- NOTE | 2020-07-13 03:34 | NUR ---
PATIENT IS CLEANED, 2 OSTOMY SITES ARE CHANGED. PATIENT IS GIVEN NEW CLOTHING.
[2020-07-13 04:01] VITALS: BP 138/68
--- NOTE | 2020-07-13 04:17 | NUR ---
AFTER PT WAS CLEANED, CHANGED, OSTOMY BAG CHANGED PER PT REQUEST. PT WAS STILL VERBALLY ABUSSIVE/ AGGRESSIVE TOWARDS STAFF, DR. ANDRADE WALKED INTO ROOM TO DEESCALATE THE SITUATION. DR ANDRADE STOOD NEXT TO THE BED, PT THEN BEGAN TO YELL AT DR, PT GRABBED THE SIDE RAILS, LEANED FORWARD AND SPIT ON THE ED MDRip LOZANO PAGED, PT ESCORTED OUT ON PERSONAL WHEEL CHAIR WITH PERSONAL BELONGINGS.
== END 2020-07-13 04:17 | disposition home or self-care (01) ==
LOC: ER 01:14
DX: R45.6 Violent behavior (principal); G89.4 Chronic pain syndrome; Z43.3 Encounter for attention to colostomy; F17.200 Nicotine dependence, unspecified, uncomplicated; Z89.612 Acquired absence of left leg above knee; Z88.8 Allergy status to other drugs, medicaments and biological substances; Z59.0 Homelessness
CPT/HCPCS: 99283; A6253

== ENCOUNTER 2020-07-28 17:26 | Emergency (ER) | payer MEDICARE, OTHER ==
[~2020-07-28] VITALS: Ht 154.9 cm; Wt 63.5 kg
[2020-07-28 18:32] VITALS: BP 132/80
--- NOTE | 2020-07-28 20:37 | NUR ---
PT CLEANED AND CHANGED. WOUND DRESSING DONE. COLOSTOMY AND UROSTOMY BAGS PROVIDED.
--- NOTE | 2020-07-29 05:10 | NUR ---
Patient given written and verbal discharge instructions. Patient verbalizes understanding of instructions. Patient is ambulatory with steady gait. Refuses offer of senior living placement. Patient given list of available shelters in surrounding area. Pt refuses to sign aci. Food and drinks provided
== END 2020-07-29 05:39 | disposition home or self-care (01) ==
LOC: ER 17:32
DX: L89.619 Pressure ulcer of right heel, unspecified stage (principal); G89.4 Chronic pain syndrome; M54.6 Pain in thoracic spine; G82.20 Paraplegia, unspecified; Z93.3 Colostomy status; Z59.0 Homelessness; Z88.5 Allergy status to narcotic agent; Z88.8 Allergy status to other drugs, medicaments and biological substances

== ENCOUNTER 2020-08-25 18:08 | Emergency (ER) | payer MEDICARE, OTHER ==
[~2020-08-25] VITALS: Ht 167.6 cm; Wt 68.5 kg
--- NOTE | 2020-08-25 18:22 | NUR ---
Patient verbally agressive/obnoxious/cussing/ refusing any nursing intervention at this time. Unable to take vitals.
[2020-08-25] MEDS ORDERED: IBUPROFEN 600 MG TABLET PO ONE (18:30)
[2020-08-25 19:54] VITALS: BP 147/88
== END 2020-08-25 22:04 | disposition home or self-care (01) ==
LOC: ER 18:10
DX: G89.29 Other chronic pain (principal); Z76.5 Malingerer [conscious simulation]; Z59.0 Homelessness; Z93.3 Colostomy status; Z89.612 Acquired absence of left leg above knee; Z88.5 Allergy status to narcotic agent; Z88.8 Allergy status to other drugs, medicaments and biological substances

== ENCOUNTER 2020-09-01 00:48 | Emergency (ER) | payer MEDICARE, OTHER ==
[~2020-09-01] VITALS: Ht 152.4 cm; Wt 81.6 kg
[2020-09-01 00:48] VITALS: BP 148/89
--- NOTE | 2020-09-01 00:50 | NUR ---
DR KALEE STONE THE PT
--- NOTE | 2020-09-01 00:54 | NUR ---
EMT AT BED SIDE FOR DRESSING CHANGE
== END 2020-09-01 02:37 | disposition home or self-care (01) ==
LOC: ER 00:48
DX: M86.671 Other chronic osteomyelitis, right ankle and foot (principal); F17.200 Nicotine dependence, unspecified, uncomplicated; Z93.3 Colostomy status; Z89.612 Acquired absence of left leg above knee; Z88.8 Allergy status to other drugs, medicaments and biological substances; Z59.0 Homelessness
CPT/HCPCS: 99283; A4362

== ENCOUNTER 2020-09-07 21:47 | Emergency (ER) | payer MEDICARE, OTHER ==
[~2020-09-07] VITALS: Ht 172.7 cm; Wt 81.6 kg
[2020-09-07 21:50] VITALS: BP 124/76
--- NOTE | 2020-09-07 21:56 | NUR ---
PT VERBALLY ABUSIVE TO ER STAFF DEMANDING FOR FOOD, CURSING NURSING STAFF, CALLING NURSING STAFF RACIAL SLUR, THROWING USED WOUND DRESSING ALL OVER THE FLOOR. SECURITY CALLED TO HAVE PT ESCORTED OUT OR ER.
[2020-09-08] MEDS ORDERED: DEXTROSE 50%-WATER 50 ML DISP.SYRIN ONE (20:07)
[2020-09-08] MEDS ORDERED: CALCIUM CHLORIDE 1,000 MG/10 ML DISP.SYRIN ONE (20:07)
[2020-09-08] MEDS ORDERED: SODIUM BICARBONATE SYR 50 MEQ/50 ML DISP.SYRIN ONE (20:07)
[2020-09-08] MEDS ORDERED: INSULIN REGULAR, HUMAN 100 UNIT/ML 10 ML VIAL ONE (20:08)
== END 2020-09-07 22:31 | disposition home or self-care (01) ==
LOC: ER 21:49
DX: G89.29 Other chronic pain (principal); L97.919 Non-pressure chronic ulcer of unspecified part of right lower leg with unspecified severity; G82.20 Paraplegia, unspecified; R45.6 Violent behavior; F17.200 Nicotine dependence, unspecified, uncomplicated; Z93.3 Colostomy status; Z89.612 Acquired absence of left leg above knee; Z88.8 Allergy status to other drugs, medicaments and biological substances; Z59.0 Homelessness
CPT/HCPCS: J1815; J3490

== ENCOUNTER 2020-09-13 01:18 | Emergency (ER) | payer MEDICARE, MEDICAID ==
[~2020-09-13] VITALS: Ht 170.2 cm; Wt 79.4 kg
[2020-09-13] MEDS ORDERED: IBUPROFEN 600 MG TABLET ONE (02:03)
[2020-09-13] MEDS: IBUPROFEN 600 MG TABLET PO ONE (02:04)
--- NOTE | 2020-09-13 06:44 | NUR ---
pt cleared for discharge. pt refused discharge instructions. pt also refused v/s check at this time. pt appears comfortable. no acute distress noted.
== END 2020-09-13 06:45 | disposition home or self-care (01) ==
LOC: ER 01:19
DX: G89.29 Other chronic pain (principal); M79.671 Pain in right foot; M86.671 Other chronic osteomyelitis, right ankle and foot; F17.200 Nicotine dependence, unspecified, uncomplicated; Z93.3 Colostomy status; Z88.8 Allergy status to other drugs, medicaments and biological substances; Z89.612 Acquired absence of left leg above knee; Z59.0 Homelessness

== ENCOUNTER 2020-09-13 18:10 | Emergency (ER) | payer MEDICARE, MEDICAID ==
[~2020-09-13] VITALS: Ht 170.2 cm; Wt 74.8 kg
[2020-09-13 19:05] VITALS: BP 138/82
--- NOTE | 2020-09-13 21:06 | NUR ---
TOTAL PT CARE DONE. PT ABLE TO CHANGE HIS OWN COLOSTOMY AND UROSTOMY BAG. PT VERBALLY ABUSIVE TO ER STAFF, UNCOOPERATIVE.
--- NOTE | 2020-09-13 21:18 | NUR ---
PT REFUSE ACI. PT REMAINS VERBALLY ABUSIVE TO ER STAFF, SECURITY CALLED TO ESCORT PT OUT.
== END 2020-09-13 23:02 | disposition home or self-care (01) ==
LOC: ER 18:12
DX: K94.03 Colostomy malfunction (principal); L89.109 Pressure ulcer of unspecified part of back, unspecified stage; L89.329 Pressure ulcer of left buttock, unspecified stage; L89.319 Pressure ulcer of right buttock, unspecified stage; Z89.612 Acquired absence of left leg above knee; Z88.8 Allergy status to other drugs, medicaments and biological substances; Z59.0 Homelessness
CPT/HCPCS: 99283; A4362 ×2

== ENCOUNTER 2020-09-14 15:13 | Emergency (ER) | payer MEDICARE, OTHER ==
[~2020-09-14] VITALS: Ht 170.2 cm; Wt 68.0 kg
[2020-09-14 15:15] VITALS: BP 128/79
--- NOTE | 2020-09-14 15:17 | NUR ---
PATIENT UNCOOPERATIVE WITH PARAMEDICS AND HOSPITAL STAFF, REFUSING TO HAVE ANY VITAL SIGNS TAKEN.
[2020-09-14] MEDS ORDERED: ACETAMINOPHEN ES 500 MG TABLET ONE (15:27)
[2020-09-14] MEDS ORDERED: ACETAMINOPHEN ES 500 MG TABLET PO ONE (15:30)
--- NOTE | 2020-09-14 15:42 | NUR ---
PT TEMPORARILY COOPERATIVE. VITAL SIGNS TAKEN.
--- NOTE | 2020-09-14 15:47 | NUR ---
covid swab collected and sent to lab
[2020-09-14 16:14] LABS: BASOPHILS % (AUTO) 0.5 % (0.0-2.0); CALCIUM, SERUM 8.8 mg/dL (8.5-10.1); CARBON DIOXIDE 27 mmol/L (21-32); CHLORIDE 104 mmol/L (98-107); CREATININE 0.7 mg/dL (0.6-1.3); EOSINOPHILS % (AUTO) 1.6 % (0.0-6.0); GLUCOSE 68 mg/dL (74-106); HEMATOCRIT 30 % (39-51); HEMOGLOBIN 8.8 g/dL (13.5-17.5); LYMPHOCYTES # (AUTO) 0.8 /CMM (0.8-4.8); LYMPHOCYTES % (AUTO) 8.9 % (20.0-44.0); MEAN CORPUSCULAR HGB CONC 30 g/dl (31.0-36.0); MEAN CORPUSCULAR VOLUME 61 fL (80-96); MONOCYTES # (AUTO) 0.8 /CMM (0.1-1.30); MONOCYTES % (AUTO) 8.9 % (2.0-12.0); NEUTROPHILS # (AUTO) 7.4 /CMM (1.8-8.9); NEUTROPHILS % (AUTO) 80.1 % (43.0-81.0); PLATELET COUNT (AUTO) 733 /CMM (150-450); RED BLOOD CELL COUNT(AUTO) 4.89 MIL/uL (4.5-6.0); SODIUM SERUM 141 mmol/L (136-145); UREA NITROGEN, BLOOD 12 mg/dL (7-18); WHITE BLOOD COUNT (AUTO) 9.3 K/uL (4.3-11.0)
[2020-09-14 16:19] LABS: ALANINE AMINOTRANSFERASE 15 U/L (12-78); ALBUMIN 1.8 g/dL (3.4-5.0); ALKALINE PHOSPHATASE 122 U/L (46-116); ASPARTATE AMINOTRANSFERASE 11 U/L (15-37); BILIRUBIN,TOTAL 0.2 mg/dL (0.2-1.0); TOTAL PROTEIN, SERUM 9.4 g/dL (6.4-8.2)
[2020-09-14 16:21] LABS: ACETAMINOPHEN < 0 ug/ml (10-30); ALCOHOL, BLOOD < 3 mg/dL (0-0)
[2020-09-14 17:34] LABS: EOSINOPHILS % (MANUAL) 1 % (0-4); LYMPHOCYTES % (MANUAL) 10 % (16-48); MONOCYTES % (MANUAL) 2 % (0-11.0); NEUTROPHILS % (MANUAL) 87 (42-76)
[2020-09-15] MEDS ORDERED: MAG HYDROX/AL HYDROX/SIMETH 30 ML UDC ONE (00:58)
[2020-09-15] MEDS ORDERED: LIDOCAINE VISCOUS 2% UD 15 ML UDC ONE (00:58)
[2020-09-15] MEDS ORDERED: MAG HYDROX/AL HYDROX/SIMETH 30 ML UDC PO ONE (01:00)
[2020-09-15] MEDS ORDERED: LIDOCAINE VISCOUS 2% UD 15 ML UDC PO ONE (01:00)
--- NOTE | 2020-09-15 03:41 | NUR ---
Mirta bergman in ED - 09/15/20 at 0342 by JULI REPORT GIVEN TO JANY COE FOR BHARAT.
--- NOTE | 2020-09-15 06:21 | NUR ---
Provided wound cleaning and dressing changes on the lower back and right foot, ostomy change, and provided with clothes and food.
--- NOTE | 2020-09-15 06:30 | NUR ---
Patient discharged to home in stable condition. Written and verbal after care instructions given. Patient verbalizes understanding of instruction.
== END 2020-09-15 06:34 | disposition home or self-care (01) ==
LOC: ER 15:14
DX: L97.819 Non-pressure chronic ulcer of other part of right lower leg with unspecified severity (principal); G89.4 Chronic pain syndrome; Z20.822 Contact with and (suspected) exposure to COVID-19; R00.0 Tachycardia, unspecified; M54.9 Dorsalgia, unspecified; Z89.612 Acquired absence of left leg above knee; Z93.3 Colostomy status; G82.20 Paraplegia, unspecified; S24.102S Unspecified injury at T2-T6 level of thoracic spinal cord, sequela; X95.9XXS Assault by unspecified firearm discharge, sequela; Z99.3 Dependence on wheelchair; Z59.0 Homelessness; Z88.8 Allergy status to other drugs, medicaments and biological substances; R60.0 Localized edema
CPT/HCPCS: 36415; 80048; 80076; 80299; 80320; 85007; 85025; 87426; 99284; A4362; C9803; G0480

== ENCOUNTER 2020-10-06 19:29 | Emergency (ER) | payer MEDICARE, MEDICAID ==
[~2020-10-06] VITALS: Ht 170.2 cm; Wt 68.0 kg
--- NOTE | 2020-10-06 19:46 | NUR ---
PT REFUSED TO BE SEEN BY PROVIDER. PT LEFT WITHOUT BEING SEEN.
== END 2020-10-06 19:48 | disposition left against medical advice (07) ==
LOC: ER 19:30
DX: M79.669 Pain in unspecified lower leg (principal); F17.200 Nicotine dependence, unspecified, uncomplicated; Z93.3 Colostomy status; Z98.890 Other specified postprocedural states; Z88.8 Allergy status to other drugs, medicaments and biological substances; Z88.5 Allergy status to narcotic agent; Z59.0 Homelessness; Z53.21 Procedure and treatment not carried out due to patient leaving prior to being seen by health care provider

== ENCOUNTER 2020-10-24 02:10 | Emergency (ER) | payer MEDICARE, OTHER ==
[~2020-10-24] VITALS: Ht 170.2 cm; Wt 68.0 kg
--- NOTE | 2020-10-24 02:16 | NUR ---
PT BIBRA C/O CHRONIC LOWER LEG PAIN. PT AAOX4 BREATHING EVENLY AND UNLABORED. PT STATES HE HAD "HIS FOOT WRAPPED TOO TIGHTLY AND IT HURTS". UPON ASSESSMENT, PT'S LOWER RIGHT LEG SWOLLEN AND THE BOTTOM OF HIS FOOT HAS LARGE FOUL SMELLING WOUND ON THE BOTTOM OF HIS RIGHT FOOT. PT HAS COLOSTOMY AND UROSTOMY BAGS. PT ATTACHED TO MONITOR AND POX. PT GIVEN BLANKETS AND CALL LIGHT WITHIN REACH. WILL CONTINUE TO MONITOR
--- NOTE | 2020-10-24 06:16 | NUR ---
Patient discharged to home in stable condition. Written and verbal after care instructions given. Patient verbalizes understanding of instruction. Pt assisted to wheelchair and refused to sign d/c instruction or homeless waiver.
[2020-10-24 06:21] VITALS: BP 112/80
== END 2020-10-24 06:16 | disposition home or self-care (01) ==
LOC: ER 02:13
DX: G89.4 Chronic pain syndrome (principal); F17.200 Nicotine dependence, unspecified, uncomplicated; Z93.3 Colostomy status; Z89.612 Acquired absence of left leg above knee; Z88.8 Allergy status to other drugs, medicaments and biological substances; Z59.0 Homelessness
CPT/HCPCS: 99285; A4362; A6253

== ENCOUNTER 2020-10-30 01:23 | Emergency (ER) | payer MEDICARE, OTHER ==
[~2020-10-30] VITALS: Ht 152.4 cm; Wt 68.0 kg
[2020-10-30 01:23] VITALS: BP 127/87
== END 2020-10-30 06:30 | disposition home or self-care (01) ==
LOC: ER 01:25
DX: R45.6 Violent behavior (principal); G89.29 Other chronic pain; F17.200 Nicotine dependence, unspecified, uncomplicated; Z76.5 Malingerer [conscious simulation]; Z93.3 Colostomy status; Z89.612 Acquired absence of left leg above knee; Z88.8 Allergy status to other drugs, medicaments and biological substances; Z88.5 Allergy status to narcotic agent; Z59.0 Homelessness

== ENCOUNTER 2020-10-31 01:13 | Emergency (ER) | payer MEDICARE, OTHER ==
[~2020-10-31] VITALS: Ht 121.9 cm; Wt 72.6 kg
[2020-10-31 01:21] VITALS: BP 124/77
== END 2020-10-31 02:11 | disposition home or self-care (01) ==
LOC: ER 01:16
DX: M86.671 Other chronic osteomyelitis, right ankle and foot (principal); G89.29 Other chronic pain; G82.20 Paraplegia, unspecified; Z76.5 Malingerer [conscious simulation]; Z59.0 Homelessness; F17.200 Nicotine dependence, unspecified, uncomplicated; Z93.3 Colostomy status; Z89.612 Acquired absence of left leg above knee; Z88.8 Allergy status to other drugs, medicaments and biological substances

== ENCOUNTER 2020-11-17 01:01 | Emergency (ER) | payer MEDICARE, OTHER ==
[~2020-11-17] VITALS: Ht 152.4 cm; Wt 68.0 kg
[2020-11-17 01:01] VITALS: BP 132/74
== END 2020-11-17 01:36 | disposition home or self-care (01) ==
LOC: ER 01:02
DX: M54.9 Dorsalgia, unspecified (principal); G89.29 Other chronic pain; F10.10 Alcohol abuse, uncomplicated; F17.200 Nicotine dependence, unspecified, uncomplicated; Y90.9 Presence of alcohol in blood, level not specified; Z76.5 Malingerer [conscious simulation]; Z91.19 Patient's noncompliance with other medical treatment and regimen; Z93.3 Colostomy status; Z98.890 Other specified postprocedural states; Z88.9 Allergy status to unspecified drugs, medicaments and biological substances; Z88.5 Allergy status to narcotic agent; Z59.0 Homelessness

== ENCOUNTER → 2021-01-10 | Emergency (ER) | payer MEDICARE, OTHER ==
[~2021-01-10] VITALS: Ht 152.4 cm; Wt 68.0 kg
[2021-01-10 02:41] VITALS: BP 131/69
--- NOTE | 2021-01-10 02:42 | NUR ---
DR. GRANDA WITH PATIENT FOR MEDICAL SCREENING EXAM
--- NOTE | 2021-01-10 02:43 | NUR ---
PT ON HIS WHEEL CHAIR, REFUSING TO HAVE ER MD ASSESS HIM. REQUESTED TO BE PLACED IN A BED TO "SLEEP." PT STATED "MAN, GET ME A FUCKING BED, I AM TIRED." PT REFUSING TO BE EXAMINED, BEING VERBALLY AGRESSIVE TOWARDS STAFF.
== END | disposition home or self-care (01) ==
LOC: ER 02:41
DX: R45.6 Violent behavior (principal); G89.29 Other chronic pain; M79.661 Pain in right lower leg; Z53.20 Procedure and treatment not carried out because of patient's decision for unspecified reasons; F17.200 Nicotine dependence, unspecified, uncomplicated; Z93.3 Colostomy status; Z89.612 Acquired absence of left leg above knee; Z88.8 Allergy status to other drugs, medicaments and biological substances; Z59.0 Homelessness
CPT/HCPCS: 99283; A4362

== ENCOUNTER 2021-01-14 14:00 | Emergency (ER) | payer MEDICARE, OTHER ==
[~2021-01-14] VITALS: Ht 152.4 cm; Wt 68.0 kg
[2021-01-14 14:14] VITALS: BP 145/95
--- NOTE | 2021-01-14 17:08 | NUR ---
PT CLEANED PROVIDED W/ FRESH CLOTHINGS AND COLOSTOMY. DISCHARGED IN STABLE CONDITION.
== END 2021-01-14 17:28 | disposition home or self-care (01) ==
LOC: ER 14:04
DX: L89.899 Pressure ulcer of other site, unspecified stage (principal); F17.200 Nicotine dependence, unspecified, uncomplicated; Z93.3 Colostomy status; Z98.890 Other specified postprocedural states; Z88.8 Allergy status to other drugs, medicaments and biological substances; Z88.6 Allergy status to analgesic agent; Z59.0 Homelessness
CPT/HCPCS: 99283; A6253; A6403

== ENCOUNTER 2021-02-21 21:02 | Emergency (ER) | payer MEDICARE, OTHER ==
[~2021-02-21] VITALS: Ht 152.4 cm; Wt 52.6 kg
--- NOTE | 2021-02-21 21:16 | NUR ---
PATIENT CAME TO THE ER BED 18 [employer] AND RA FROM THE [facility] C/O LOWER BACK PAIN. PATIENT WAS ORIGINALLY THROWING ITEMS AT [email or web address] AT [employer] AND PLACED ON A 5150 HOLD BY [employer]. PATIENT UPON ARRIVAL IS YELLING AND CURSING AT STAFF. PATIENT IS NOT COOPERATIVE
--- NOTE | 2021-02-21 21:18 | NUR ---
PATIENT REFUSED BLOOD PRESSURE TO BE TAKEN.
[2021-02-21] MEDS ORDERED: diphenhydrAMINE HCL 50 MG/ML VIAL ONE (21:59)
[2021-02-21] MEDS ORDERED: HALOPERIDOL LACTATE INJ 5 MG/ML VIAL ONE (21:59)
[2021-02-21] MEDS ORDERED: diphenhydrAMINE HCL 50 MG/ML VIAL IM ONE (22:00)
[2021-02-21] MEDS ORDERED: HALOPERIDOL LACTATE INJ 5 MG/ML VIAL IM ONE (22:00)
[2021-02-21] MEDS ORDERED: LORAZEPAM INJ 2 MG/ML VIAL IM ONE (22:00)
[2021-02-21] MEDS ORDERED: LORAZEPAM INJ 2 MG/ML VIAL ONE (22:00)
[2021-02-21 23:05] LABS: BASOPHILS % (AUTO) 0.4 % (0.0-2.0); EOSINOPHILS % (AUTO) 2.1 % (0.0-6.0); HEMATOCRIT 29 % (39-51); LYMPHOCYTES # (AUTO) 1.7 K/uL (0.8-4.8); LYMPHOCYTES % (AUTO) 19.3 % (20.0-44.0); MEAN CORPUSCULAR HGB CONC 31 g/dl (31.0-36.0); MEAN CORPUSCULAR VOLUME 60 fL (80-96); MONOCYTES % (AUTO) 12.1 % (2.0-12.0); NEUTROPHILS # (AUTO) 5.7 K/uL (1.8-8.9); NEUTROPHILS % (AUTO) 66.1 % (43.0-81.0); PLATELET COUNT (AUTO) 739 K/uL (150-450); RED BLOOD CELL COUNT(AUTO) 4.85 MIL/uL (4.5-6.0); WHITE BLOOD COUNT (AUTO) 8.6 K/uL (4.3-11.0)
[2021-02-21 23:12] LABS: CALCIUM, SERUM 8.7 mg/dL (8.5-10.1); CARBON DIOXIDE 21 mmol/L (21-32); CHLORIDE 105 mmol/L (98-107); CREATININE 0.8 mg/dL (0.6-1.3); GLUCOSE 109 mg/dL (74-106); SODIUM SERUM 136 mmol/L (136-145); UREA NITROGEN, BLOOD 19 mg/dL (7-18)
[2021-02-21 23:22] LABS: ACETAMINOPHEN 0 ug/ml (10-30); ALANINE AMINOTRANSFERASE 13 U/L (12-78); ALBUMIN 2.1 g/dL (3.4-5.0); ALCOHOL, BLOOD < 3 mg/dL (0-0); ALKALINE PHOSPHATASE 117 U/L (46-116); ASPARTATE AMINOTRANSFERASE 19 U/L (15-37); BILIRUBIN,DIRECT 0.2 mg/dL (0.0-0.2); BILIRUBIN,TOTAL 0.4 mg/dL (0.2-1.0); TOTAL PROTEIN, SERUM 9.4 g/dL (6.4-8.2)
[2021-02-21 23:55] LABS: BASOPHILS % (MANUAL) 0 % (0.0-2.0); EOSINOPHILS % (MANUAL) 1 % (0-4); LYMPHOCYTES % (MANUAL) 15 % (16-48); MONOCYTES % (MANUAL) 8 % (0-11.0); NEUTROPHILS % (MANUAL) 76 (42-76)
--- NOTE | 2021-02-22 00:09 | NUR ---
PATIENT IS ASLEEP. VSS. EASILY AROUSABLE. EVEN RISE AND FALL OF CHEST. CALL LIGHT WITHIN REACH. WILL CONTINUE TO MONITOR PATIENT.
--- NOTE | 2021-02-22 03:57 | NUR ---
PATIENT IS SLEEPING. EASILY AROUSABLE THROUGH VOICE. PATIENT IS BREATHING EVENLY AND UNLABORED ON ROOM AIR. CONNECTED TO THE MONITOR. SIDE RAILS ARE UP FOR SAFETY. CALL LIGHT WITHIN REACH. WILL CONTINUE TO MONITOR THE PATIENT CLOSELY.
--- NOTE | 2021-02-22 04:50 | NUR ---
URINE COLLECTED AND SENT TO THE LAB.
[2021-02-22 05:00] LABS: BILIRUBIN,URINE Negative (NEGATIVE); COLOR,URINE YELLOW (YELLOW); LEUKOCYTE ESTERASE ,URINE Large (NEGATIVE); NITRITE, URINE Positive (NEGATIVE); PROTEIN,URINE 100 mg/dl (NEGATIVE); UGLUCOSE Negative (NEGATIVE)
[2021-02-22 05:28] LABS: BACTERIA,URINE Rare /HPF (None Seen); RBC,URINE 0-2 /HPF (0-2); SQUAMOUS EPITHELIAL CELL,UR None Seen /HPF (None Seen); WBC,URINE 81-100 /HPF (0-3)
--- NOTE | 2021-02-22 06:25 | NUR ---
called educational speech language clinician for eval.
--- NOTE | 2021-02-22 07:30 | NUR ---
MANISH Velasco here to see patient. Cleared by TRAVELING ENGINEER. Medically cleared for discharge
--- NOTE | 2021-02-22 09:00 | NUR ---
Pt awake/obnoxious/cussing everyone/verbally abusive/uncooperative- refusing placement/penitentiary/resources. Able to self transfer to wheelchair. Escorted out by security
[2021-02-22 09:06] VITALS: BP 112/71
--- NOTE | 2021-02-22 09:07 | NUR ---
Patient discharged in stable condition. Written and verbal after care instructions given. Resources provided. Patient verbalizes understanding of instruction.
== END 2021-02-22 09:06 | disposition home or self-care (01) ==
LOC: ER 21:09
DX: F91.8 Other conduct disorders (principal); G89.4 Chronic pain syndrome; M54.5 Low back pain; Z59.0 Homelessness; D50.9 Iron deficiency anemia, unspecified; Z93.3 Colostomy status; Z89.612 Acquired absence of left leg above knee; G83.9 Paralytic syndrome, unspecified; Z88.8 Allergy status to other drugs, medicaments and biological substances; M86.60 Other chronic osteomyelitis, unspecified site; Z20.822 Contact with and (suspected) exposure to COVID-19; E88.09 Other disorders of plasma-protein metabolism, not elsewhere classified
CPT/HCPCS: 36415; 80048; 80076; 80143; 80307; 80320; 81001; 85007; 85025; 87086; 87426; 96372 ×2; 99284; J1200; J1630; J2060; C9803; G0480

== ENCOUNTER 2021-02-22 16:29 | Inpatient (IN) | payer MEDICARE, MEDICAID ==
[~2021-02-22] VITALS: Ht 152.4 cm; Wt 49.0 kg
--- NOTE | 2021-02-22 17:10 | NUR ---
[id number]. C/O SHARP R FOOT AND BACK OF 04/01. AOX4, NO SOB NOTED, NO S/O ANY ACUTE DISTRESS NOTED. KEPT COMFORTABLE IN BED. WILL CONTINUE TO MONITOR
--- NOTE | 2021-02-22 17:25 | NUR ---
PATIENT NON COMPLIANT WITH CARE. INSULTIVE TOWARDS STAFF.
[2021-02-22] MEDS ORDERED: CEFEPIME 1 GM in IV D5W 50 ML IV ONE (18:00)
[2021-02-22] MEDS ORDERED: IV NS 0.9% 1,000 ML BAG IV ONE (18:00)
--- NOTE | 2021-02-22 18:35 | NUR ---
Mirta bergman in [facility] - 02/22/21 at 1836 by ELLEN ROOM ASSIGNMENT: [id number] [phone]
--- NOTE | 2021-02-22 18:36 | NUR ---
ROOM ASSIGNEMENT: [id number]
--- NOTE | 2021-02-22 18:41 | NUR ---
PATIENT CALLED ME OBSCENITIES I ATTEMPTED TO TAKE XRAYS OF HIS RIGHT FOOT. I WAS ONLY ABLE TO COMPLETE THE LATERAL VIEW WHEN HE GRABBED ME, SO I ENDED THE EXAM AND LEFT THE ROOM. INFORMED THE RN.
[2021-02-22] MEDS ORDERED: MORPHINE SULFATE INJ 2 MG/ML DISP.SYRIN IV PRN (19:00)
[2021-02-22] MEDS ORDERED: ONDANSETRON HCL/PF 4 MG/2 ML VIAL IVP PRN ×2 (19:00→19:45)
[2021-02-22] MEDS ORDERED: MAGNESIUM HYDROXIDE 30 ML UDC PO PRN ×2 (19:00→19:45)
[2021-02-22] MEDS ORDERED: ZOLPIDEM TARTRATE 5 MG TABLET PO PRN ×2 (19:00→19:45)
[2021-02-22] MEDS ORDERED: ACETAMINOPHEN 325 MG TABLET PO PRN ×2 (19:00→19:45)
[2021-02-22] MEDS ORDERED: IV NS 0.9% 1,000 ML IV PRN ×2 (19:00→19:45)
[2021-02-22] MEDS ORDERED: Z GUARD REMEDY 2 OZ OINT TP PRN ×2 (19:00→19:45)
--- NOTE | 2021-02-22 19:34 | NUR ---
report given to Eva COE Continue plan of care Mid line nurse called by the supervisor sample for the patient
--- NOTE | 2021-02-22 19:39 | NUR ---
note: all meds not initiated - the patient is a hard stick - the nursing specialty department supervisor is aware - called the mid line nurse
[2021-02-22 19:57] VITALS: BP 132/89
--- NOTE | 2021-02-22 19:57 | NUR ---
ms rn notes a 45 y/o male a/o x 4 combative non compliant to care and treatment admitted dx of acute chronic osteomylitis , v/s stable afebrile on ms status regular diet , for midline placement , will endorse to nite nurse 3 zeeshan rn for continuity of care.
[2021-02-22] MEDS ORDERED: VANCOMYCIN 1 GM in IV D5W 250ml IV ONE (20:30)
--- NOTE | 2021-02-22 22:00 | NUR ---
ms rn notes Right upper arm midline G#18 inserted by laci gaxiola intact and patent .
--- NOTE | 2021-02-22 22:10 | NUR ---
ms rn notes transfer and report given to mary rn 3west for continuity of care.endorse to nurse to f/u with the body check since pts refusing to be clean .
[2021-02-22] MEDS ORDERED: VANCOMYCIN 1 GM VIAL ONE (22:21)
[2021-02-22] MEDS ORDERED: PIPERACILLIN /TAZOBACTAM 3.375 G VIAL IV ONE (22:22)
[2021-02-22 22:35] VITALS: BP 122/71
--- NOTE | 2021-02-22 22:35 | NUR ---
RN ADMITTING NOTE PT TRANSPORTED BY STRETCHER TO [facility] AT THIS TIME BY CAROLIN WILKINSON FROM [place], AOX3. PT IS NON COMPLIANT, HOSTILE AN DUSING FOUL WORDS ON THE STAFFS. NO SOB NOTED, NO C/O PAIN AT THIS TIME, NO S/S OF ANY APPARENT DISTRESS NOTED. RESPIRATIONS EVEN AND UNLABORED. PT REFUSED ASSEMMENT AND CARE. CAPILLARY REFILL <3 SECS, PULSES PRESENT BILATERALLY. MID LINE ACCESS NOTED IN BIPIN G#18. SKIN IS NOT INTACT, LEFT FOOT AMPUTATED AND RIGHT LEG OSTEOMYLITIS. PTS BELONGINGS ACCOUNTED FOR. BED IN LOWEST LOCKED POSITION, SIDE RAILS UPX2, TABLE AN DCALL LIGHT WITHIN REACH. WILL CONTINUE PLAN OF CARE.
[2021-02-22] MEDS ORDERED: CEFEPIME 1 GM VIAL ONE (22:37)
--- NOTE | 2021-02-22 22:37 | NUR ---
PT REFUSED CARE AND ASSESSMENT. UNCOOPERATIVE AND INSULTIVE TOWARDS STAFF.
--- NOTE | 2021-02-22 22:59 | NUR ---
PROPERTY ACCOUNTANT: COVERING PRIMARY NURSE Patient in bed, awake, angry behavior, yells out to staff. Started on IVF infusion, given abx IV not on time d/t patient arrived to unit at 22:35pm.
[2021-02-22] MEDS: MORPHINE SULFATE INJ 2 MG/ML DISP.SYRIN IV PRN (23:03)
--- NOTE | 2021-02-22 23:03 | NUR ---
PT C/O ACHING PAIN 04/01 VS WNL, STABLE ON RA, PER PT REQUEST MORPHINE 2MG/1ML PO Q4HR PRN ADMINISTERED PER ORDER. WILL CONTINUE TO MONITOR
[2021-02-22] MEDS: ZOSYN IVPB 3.375 G in IV D5W 50ml IV SCH (23:31)
[2021-02-23] VITALS: BP 122/71
[2021-02-23] MEDS: MORPHINE SULFATE INJ 2 MG/ML DISP.SYRIN IV PRN (04:51)
[2021-02-23] MEDS ORDERED: PIPERACILLIN /TAZOBACTAM 3.375 G VIAL IV ONE (05:00)
[2021-02-23] MEDS: ZOSYN IVPB 3.375 G in IV D5W 50ml IV SCH (05:06)
--- NOTE | 2021-02-23 06:00 | NUR ---
MS RN CLOSING NOTE PT AWAKE IN BED. ABLE TO RESPOND TO LIGHT STIMULUS. PT IS YELLING AT SCREAMING AT STAFFS. PT IS HOSTILE AND UNCOOPERATIVE.PT NOTED ON RA, NO SOB NOTED. NO S/S OF RESPIRATORY DISTRESS. PT IS ON BED REST. NO C/O PAIN AT THIS TIME. IV ACCESS INTACT, PATENT AND FLUSHING WELL. BED IN LOW POSITION, CALL LIGHTS WITHIN REACH, KEPT CLEAN AND DRY. ENDORSE TO DAY SHIFT.
--- NOTE | 2021-02-23 07:15 | NUR ---
RN NOTES PATIENT SEEN IN BED AND WAS SHOUTING AT THE STAFF. VERBALIZED THAT HE WANTED TO GET OUT OF BED AND TO DO TREATMENT ON HIS RIGHT LEG; TRIED TO ASSIST PATIENT BUT SHOUTED, "WHAT ARE YOU DOING? THAT'S NOT WHAT I TOLD YOU TO DO". INFORMED PATIENT THAT TREATMENT SUPPLIES WILL BE BROUGHT TO ROOM BUT PATIENT KEPT INSISTING THAT HE WANTS TO BE OUT OF THE CHAIR AND SAID "GET OUT OF MY FACE, DO NOT EVER CROSS IN FRONT OF MY WHEELCHAIR. GET YOUR COLLINS ASS OUT OF HERE". CHARGE NURSE MADE AWARE OF PATIENT'S BEHAVIOR.
[2021-02-23 07:21] LABS: BASOPHILS % (AUTO) 0.4 % (0.0-2.0); EOSINOPHILS % (AUTO) 3.9 % (0.0-6.0); HEMATOCRIT 28 % (39-51); HEMOGLOBIN 8.6 g/dL (13.5-17.5); LYMPHOCYTES # (AUTO) 1.4 K/uL (0.8-4.8); MEAN CORPUSCULAR HGB CONC 31 g/dl (31.0-36.0); MEAN CORPUSCULAR VOLUME 61 fL (80-96); MONOCYTES # (AUTO) 0.8 K/uL (0.1-1.30); NEUTROPHILS # (AUTO) 5.5 K/uL (1.8-8.9); NEUTROPHILS % (AUTO) 68.7 % (43.0-81.0); PLATELET COUNT (AUTO) 697 K/uL (150-450); RED BLOOD CELL COUNT(AUTO) 4.65 MIL/uL (4.5-6.0); WHITE BLOOD COUNT (AUTO) 7.9 K/uL (4.3-11.0)
[2021-02-23 07:37] LABS: CALCIUM, SERUM 8.3 mg/dL (8.5-10.1); CREATININE 0.7 mg/dL (0.6-1.3); POTASSIUM 4.3 mmol/L (3.5-5.1)
--- NOTE | 2021-02-23 07:40 | NUR ---
RN NOTES CAROLIN GORDILLO, AT BEDSIDE WITH PATIENT AND PATIENT WANTED TO LEAVE AMA; DR. MARTÍNEZ IN THE UNIT AND ALSO AWARE OF PATIENT'S INTENTIONS OF LEAVING HOSPITAL.
[2021-02-23 07:44] LABS: ALBUMIN 1.8 g/dL (3.4-5.0); BILIRUBIN,DIRECT 0.1 mg/dL (0.0-0.2); BILIRUBIN,TOTAL 0.3 mg/dL (0.2-1.0); TOTAL PROTEIN, SERUM 8.6 g/dL (6.4-8.2)
--- NOTE | 2021-02-23 07:45 | NUR ---
RN NOTES AMA FORM SIGNED BY PATIENT AND MIDLINE REMOVED; TREATMENT ON RLE WOUNDS AND SACROCOCCYX WOUND DONE. SECURITY AT BEDSIDE AND PROVIDED PANTS AND SHIRT TO PATIENT.
--- NOTE | 2021-02-23 07:50 | NUR ---
RN NOTES PATIENT ESCORTED BY SECURITY TO THE LOBBY VIA WHEELCHAIR. PATIENT REFUSED PHOTOS OF SKIN ISSUES TO BE TAKEN.
[2021-02-23] MEDS ORDERED: VANCOMYCIN 1 GM in IV D5W 250ml IV SCH (08:00)
[2021-02-23 09:16] LABS: EOSINOPHILS % (MANUAL) 4 % (0-4); LYMPHOCYTES % (MANUAL) 11 % (16-48); MONOCYTES % (MANUAL) 11 % (0-11.0); NEUTROPHILS % (MANUAL) 74 (42-76)
[2021-02-23] MEDS ORDERED: ZOSYN IVPB 3.375 G in IV D5W 50ml IV SCH (12:00)
== END 2021-02-23 07:55 | disposition left against medical advice (07) | DRG 344 ==
LOC: ER 16:41 → MEDSG1 19:46 → MED 22:05
PROVIDERS: ADMIT Nurse Practitioner Acute Care; ATTEND Nurse Practitioner Acute Care
PROC: 05H633Z Insertion of Infusion Device into Left Subclavian Vein, Percutaneous Approach (ICD-10-PCS; principal; 2021-02-22)
PROC: B547ZZA Ultrasonography of Left Subclavian Vein, Guidance (ICD-10-PCS; 2021-02-22)
DX: M86.171 Other acute osteomyelitis, right ankle and foot (principal); G82.20 Paraplegia, unspecified; Z89.612 Acquired absence of left leg above knee; N39.0 Urinary tract infection, site not specified; M86.671 Other chronic osteomyelitis, right ankle and foot; D63.8 Anemia in other chronic diseases classified elsewhere; G89.4 Chronic pain syndrome; W34.00XS Accidental discharge from unspecified firearms or gun, sequela; Z59.0 Homelessness; Z91.19 Patient's noncompliance with other medical treatment and regimen; D47.3 Essential (hemorrhagic) thrombocythemia; Z20.822 Contact with and (suspected) exposure to COVID-19; N31.9 Neuromuscular dysfunction of bladder, unspecified; Z93.6 Other artificial openings of urinary tract status
CPT/HCPCS: 36415; 73620-TC; 80048-TC; 80076-TC; 83690-TC; 85025-TC; 87081-TC; A6253; G0378; J0692; J2270; J2543; J3370; J7030; J7060

== ENCOUNTER 2021-02-23 10:36 | Emergency (ER) | payer MEDICARE, OTHER ==
[~2021-02-23] VITALS: Ht 121.9 cm; Wt 51.7 kg
[2021-02-23 10:44] VITALS: BP 135/81
--- NOTE | 2021-02-23 10:50 | NUR ---
[id number], from [facility] signed AMA, c/o leg pain. The patient rates pain 2/10. Will continue to monitor the patient
--- NOTE | 2021-02-23 11:37 | NUR ---
Patient given written and verbal discharge instructions. Patient verbalizes understanding of instructions. Patient is ambulatory with steady gait. Refuses offer of intermediate placement. Patient given list of available shelters in surrounding area. Food provided. denies pain.
== END 2021-02-23 11:37 | disposition home or self-care (01) ==
LOC: ER 10:50
DX: R45.6 Violent behavior (principal); Z76.5 Malingerer [conscious simulation]; M79.606 Pain in leg, unspecified; M86.60 Other chronic osteomyelitis, unspecified site; F17.200 Nicotine dependence, unspecified, uncomplicated; Z93.3 Colostomy status; Z89.612 Acquired absence of left leg above knee; Z88.8 Allergy status to other drugs, medicaments and biological substances; Z59.0 Homelessness

== ENCOUNTER 2021-09-16 23:15 | Emergency (ER) | payer MEDICARE, OTHER ==
[~2021-09-16] VITALS: Ht 167.6 cm; Wt 65.8 kg
--- NOTE | 2021-09-17 01:10 | NUR ---
[place]MAR [place] [facility]RE[place] C/O BUG BITE ON RIGHT LEG.
--- NOTE | 2021-09-17 01:10 | NUR ---
PT SEEN BY KALEE HUFF
--- NOTE | 2021-09-17 01:21 | NUR ---
WOUND CARE DONE TO PT'S LEG
[2021-09-17 01:32] VITALS: BP 134/81
--- NOTE | 2021-09-17 01:43 | NUR ---
Patient discharged to home in stable condition. Written and verbal after care instructions given. Patient verbalizes understanding of instruction. WOUND CARE DONE. DC VIA W/C
== END 2021-09-17 01:46 | disposition home or self-care (01) ==
LOC: ER 23:20
DX: M86.661 Other chronic osteomyelitis, right tibia and fibula (principal); L97.919 Non-pressure chronic ulcer of unspecified part of right lower leg with unspecified severity; G89.4 Chronic pain syndrome; F11.20 Opioid dependence, uncomplicated; Z89.612 Acquired absence of left leg above knee; Z93.3 Colostomy status; Z87.828 Personal history of other (healed) physical injury and trauma; Z88.9 Allergy status to unspecified drugs, medicaments and biological substances; Z88.6 Allergy status to analgesic agent; Z60.2 Problems related to living alone; Z59.00 Homelessness unspecified